=== PATIENT | male | born 1985 | race Caucasian/White ===

== ENCOUNTER 2016-07-11 13:58 | Inpatient (IN) | payer SELFPAY ==
[2016-07-11] MEDS ORDERED: SODIUM CHLORIDE 0.9% 500 ML IV STA (14:17)
[2016-07-11] MEDS ORDERED: ACTIVATED CHARCOAL-SORBITOL 50 GM/240 ML BOTTLE PO STA (14:18)
--- NOTE | 2016-07-11 14:20 | ED ---
General Adult HPI - General Stated complaint: OVERDOSE Time Seen by Provider: 07/11/16 14:00 Source: RN notes reviewed - History of Present Illness Initial comments: This is a 30-year-old male presents emergency department after having taken approximately 30 Lodine pills. Patient states he just couldn't take it anymore and that is all he would say. Patient does admit to taking 30 looking pills approximately an hour prior to arrival. Patient denies any symptoms currently. Patient denies headache patient denies numbness weakness. Patient denies chest pain palpitations difficult breathing shortness breath per patient denies abdominal pain patient denies nausea vomiting or diarrhea. Patient's father called and spoke with nursing stated that the patient just got out of long term and found out that his girlfriends and it is not his baby. Patient won't answer whether or not he is suicidal. - Related Data Home Medications Medication Instructions Recorded Confirmed No Known Home Medications [No 07/11/16 07/11/16 Known Home Medications] Allergies Allergy/AdvReac Type Severity Reaction Status Date / Time Penicillins Allergy Unknown Verified 07/11/16 15:08 Childhood Review of Systems ROS Statement: Those systems with pertinent positive or pertinent negative responses have been documented in the HPI. ROS Other: All systems not noted in ROS Statement are negative. General Exam - General Exam Comments Initial Comments: GENERAL: Patient is well-developed and well-nourished. Patient is nontoxic and well- hydrated and is in distress. ENT: Neck is soft and supple. No significant lymphadenopathy is noted. Oropharynx is clear. Moist mucous membranes. Neck has full range of motion without eliciting any pain. EYES: The sclera were anicteric and conjunctiva were pink and moist. Extraocular movements were intact and pupils were equal round and reactive to light. Eyelids were unremarkable. PULMONARY: Unlabored respirations. Good breath sounds bilaterally. No audible rales rhonchi or wheezing was noted. CARDIOVASCULAR: There is a regular rate and rhythm without any murmurs gallops or rubs. ABDOMEN: Soft and nontender with normal bowel sounds. No palpable organomegaly was noted. There is no palpable pulsatile mass. SKIN: Skin is clear with no lesions or rashes and otherwise unremarkable. NEUROLOGIC: Patient is alert and oriented x3. Cranial nerves II through XII are grossly intact. Motor and sensory are also intact. Normal speech, volume and content. Symmetrical smile. MUSCULOSKELETAL: Normal extremities with adequate strength and full range of motion. No lower extremity swelling or edema. No calf tenderness. LYMPHATICS: No significant lymphadenopathy is noted PSYCHIATRIC: Patient will not answer whether is or is not suicidal Course Vital Signs 07/11/16 14:00 Temperature 98.6 F Pulse Rate 106 H Respiratory 20 Rate Blood Pressure 133/90 O2 Sat by Pulse 96 Oximetry Medical Decision Making - Medical Decision Making Patient had a gastric lavage were pill fragments were removed. Patient remained asymptomatic throughout his ED course. EPS was contacted they spoke with the patient agreed the patient needed to be admitted. - Lab Data Result diagrams: 07/11/16 14:45 07/11/16 14:45 Lab Results 07/11/16 07/11/16 07/11/16 Range/Units 14:45 14:45 14:45 WBC 7.3 (3.8-10.6) k/uL RBC 5.74 (4.30-5.90) m/uL Hgb 18.1 H (13.0-17.5) gm/dL Hct 55.0 H (39.0-53.0) % MCV 95.8 (80.0-100.0) fL MCH 31.5 (25.0-35.0) pg MCHC 32.8 (31.0-37.0) g/dL RDW 14.3 (11.5-15.5) % Plt Count 249 (150-450) k/uL Neutrophils % 76 % Lymphocytes % 13 % Monocytes % 9 % Eosinophils % 1 % Basophils % 1 % Neutrophils # 5.5 (1.3-7.7) k/uL Lymphocytes # 1.0 (1.0-4.8) k/uL Monocytes # 0.6 (0-1.0) k/uL Eosinophils # 0.0 (0-0.7) k/uL Basophils # 0.0 (0-0.2) k/uL Sodium 146 H (137-145) mmol/L Potassium 3.8 (3.5-5.1) mmol/L Chloride 106 (98-107) mmol/L Carbon Dioxide 23 (22-30) mmol/L Anion Gap 17 mmol/L BUN 5 L (9-20) mg/dL Creatinine 0.72 (0.66-1.25) mg/dL Est GFR (MDRD) Af Amer >60 (>60 ml/min/1.73 sqM) Est GFR (MDRD) Non-Af >60 (>60 ml/min/1.73 sqM) Glucose 67 L (74-99) mg/dL Calcium 9.1 (8.4-10.2) mg/dL Total Bilirubin 1.0 (0.2-1.3) mg/dL AST 111 H (17-59) U/L ALT 138 H (21-72) U/L Alkaline Phosphatase 123 (38-126) U/L Total Protein 7.7 (6.3-8.2) g/dL Albumin 4.7 (3.5-5.0) g/dL Salicylates <1.0 mg/dL Urine Opiates Screen Not Detected (NotDetected) Ur Oxycodone Screen Not Detected (NotDetected) Urine Methadone Screen Not Detected (NotDetected) Ur Propoxyphene Screen Not Detected (NotDetected) Acetaminophen <10.0 ug/mL Ur Barbiturates Screen Not Detected (NotDetected) U Tricyclic Antidepress Detected H (NotDetected) Ur Phencyclidine Scrn Detected H (NotDetected) Ur Amphetamines Screen Not Detected (NotDetected) U Methamphetamines Scrn Not Detected (NotDetected) U Benzodiazepines Scrn Not Detected (NotDetected) Urine Cocaine Screen Not Detected (NotDetected) U Marijuana (THC) Screen Detected H (NotDetected) Serum Alcohol 77 mg/dL Disposition Clinical Impression: Depression, Overdose, Suicide attempt Disposition: [facility] Time of Disposition: 16:21
[2016-07-11 14:59] LABS: Basophils % (A) 1 %; CH 32.8; CHCM 34.4; Eosinophils % (A) 1 %; HDW 2.32; HGB 18.1 gm/dL (13.0-17.5); Luc % (Auto) 1; Lymphocytes % (A) 13 %; MCH 31.5 pg (25.0-35.0); MCHC 32.8 g/dL (31.0-37.0); MCV 95.8 fL (80.0-100.0); Mean Platelet Volume 7.2; Monocytes # (A) 0.6 k/uL (0-1.0); Monocytes % (A) 9 %; Neutrophils # (A) 5.5 k/uL (1.3-7.7); Neutrophils % (A) 76 %; RBC 5.74 m/uL (4.30-5.90); RDW 14.3 % (11.5-15.5); WBC 7.3 k/uL (3.8-10.6)
[2016-07-11 15:08] LABS: ALT 138 U/L (21-72); AST 111 U/L (17-59); Acetaminophen <10.0 ug/mL; Alkaline Phosphatase 123 U/L (38-126); Anion Gap 17 mmol/L; Blood Urea Nitrogen 5 mg/dL (9-20); Calcium 9.1 mg/dL (8.4-10.2); Carbon Dioxide 23 mmol/L (22-30); Chloride 106 mmol/L (98-107); Glucose 67 mg/dL (74-99); Non-African American GFR(MDRD) >60 (>60 ml/min/1.73 sqM); Potassium 3.8 mmol/L (3.5-5.1); Salicylate <1.0 mg/dL; Sodium 146 mmol/L (137-145); Total Protein 7.7 g/dL (6.3-8.2)
[2016-07-11 15:09] LABS: Alcohol 77 mg/dL
[2016-07-11] MEDS ORDERED: PANTOPRAZOLE 40 MG/10 ML VIAL IVP STA (15:25)
[2016-07-11] MEDS ORDERED: LORazepam 2 MG/ML SYRINGE IM PRN (17:06)
[2016-07-11] MEDS ORDERED: LORazepam 1 MG TAB PO PRN (17:06)
[2016-07-11] MEDS ORDERED: MAG HYDROX/AL HYDROX/SIMETH 30 ML CUP PO PRN (17:07)
[2016-07-11] MEDS ORDERED: MAGNESIUM HYDROXIDE 2,400 MG/10 ML CUP PO PRN (17:07)
[2016-07-11 17:46] VITALS: BMI 22.6
[2016-07-11] MEDS: NICOTINE 21MG/24HR PATCH TRANSDERM SCH (18:04)
[2016-07-12] MEDS: NICOTINE 21MG/24HR PATCH TRANSDERM SCH (09:29)
[2016-07-12] MEDS ORDERED: FOLIC ACID 1 MG TAB PO SCH (12:00)
[2016-07-12] MEDS ORDERED: THIAMINE 100 MG TAB PO SCH (12:00)
[2016-07-12] MEDS ORDERED: MULTIVITAMINS, THERA 1 EACH TAB PO SCH (12:00)
--- NOTE | 2016-07-12 13:57 | P.HP ---
Psychiatric H&P - . H&P Date: 07/12/16 History & Physical: IDENTIFYING DATA: Mr. Thomas is a 30-year-old single male who presented to the emergency department with complaints of depression and suicide attempt by overdose. HISTORY OF PRESENT ILLNESS: I reviewed the medical record and interviewed Mr. Sanderson. He stated that he took a "bunch of medication" at his grandmother's house prior to admission. He alleged she did not know the name of the medications. He did this impulsively. He denied that he had given forethought or planning to the suicide attempt. He gave a nonchalant response to questions about whether he intended to end his life. He is a history of alcohol use problems. On the day prior to admission he was "staying" with his "baby's mamma". He describes a tumultuous relationship with his ex-girlfriend. They have been for about year but he lives between her house, his mother's and his grandmother's. He stated that they were "getting along well" until early . They had an argument because she wanted their 2-year-old son to sleep at them. They woke up Day and continued to argue. He was drinking and intoxicated 's Laura and Day. She took him to his grandmother's house. He went to go to sleep on her couch. saw the medications and impulsively ingested. He denied that he had thought about or suicide prior to this event. He described feeling depressed "intermittently ... Sometimes an hour, sometimes a day ... Sometimes maybe longer." He has been feeling more depressed since he was released from [facility] one month ago. He denied classic symptoms of a major depression such as impairment in sleep, lack of interest, guilt, loss of energy , impairment in concentration, and suicidal thoughts. He denied sustained anxiety or having symptoms consistent with a panic attack. He denied obsessions or compulsions. He denied psychotic symptoms such as auditory or visual hallucinations, ideas reference, thought insertion, thought broadcasting or thought control. He denied current alcohol withdrawal symptoms including nausea, vomiting, tremor , sweating and tactile, auditory or visual hallucinations. PAST PSYCHIATRIC HISTORY: He stated he was admitted to this facility "about 10 years ago" under similar circumstances. A girlfriend told him that he attempted to hang himself. He has no memory of events that led to this hospitalization. He was intoxicated when it allegedly occurred. PAST MEDICAL HISTORY: He denied major medical illnesses. ALLERGIES: Penicillins. SUBSTANCE USE HISTORY: He has a history of an alcohol use disorder. He states that he drinks every day to intoxication. On the average, he drinks about one fifth of liquor per day. He has never attended a substance abuse treatment program. He was mandated to "substance abuse classes" following a DUI 2 years ago (he lost his license and has not driven since). He expressed no interest in substance abuse treatment and has no desire to reduce or stop his alcohol use. He occasionally smokes marijuana but denied use of other drugs to get high , help him sleep or changes mood. Tobacco use: He smokes one to 2 packs of cigarettes per day FAMILY PSYCHIATRIC/SUBSTANCE USE HISTORY: He stated "everybody" in his family has a history of mental health or substance use problems. He alleged that his mother, sister, grandmother, aunts and uncles all have mental health problems that include depression, bipolar illness and schizophrenia. His mother had a history of drug abuse in his father and his father's family have history of alcohol use problems. LEGAL HISTORY: He is been arrested "12 or 13 times." [facility] has been in [facility], in total, approximately 3 years. He was released from [facility] one month ago after serving 6 months for resisting arrest. He served another 6 month period in [facility] after being charged with fourth degree CSC (he is on the [facility]' s sex offender registry) in May 2007. Other charges include several arrests for drunk and disorderly, failure to register and "jostling". He has never been in [facility]. He is not on probation, parole or has pending charges. SOCIAL HISTORY: His born and raised in [facility] [place]. He graduated from high school. He was raised by his grandmother. His parents left him with his grandmother when he was 2 years old. He believes his father[place]. [place] He has 2 children by 2 different women. His daughter is 11 years old and his son is 2 years old. He lost alf rights to his daughter (this CSC has a due with his daughter). He denied having child support payments. 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 He is currently unemployed and has no income. He has no stable housing. He lives between his ex-girlfriend, his mother and his grandmother. He has no interests in obtaining stable housing. MENTAL STATUS EXAM: He presented as a casually groomed 1-year-old male who looked his stated age. He maintained eye contact and attended to the interview. He had no distinguishing features or prominent physical abnormalities. He had a blunted but bright facial expression. He was alert and oriented to person, place and time. He showed no abnormality of psychomotor activity. He had a normal gait and station. Speech was spontaneous with normal rate, rhythm and volume. His affect was stable and appropriate. He denied suicidal ideation or wishes. He denied homicidal ideation. He denied depressive cognitions such as hopelessness, helplessness and worthlessness. He denied obsessions, ruminations, phobias, ideas reference , paranoid ideation. He didn't express magical ideation or delusional thoughts. His thinking was abstract and associations were coherent and logical. He denied hallucinations and did not appear to be responding to internal stimuli. Global impression of intellect is average. He is aware of his alcohol use problems but has no interest in abstinence or treatment. STRENGTHS: Good physical health, supportive family, marketable employment schedule. WEAKNESSES: Alcohol use problems, unstable housing, lack of income. IMPRESSION: Is a 30-year-old single male who is history of alcoholl use and legal problems. He presented to unit with a purported suicide attempt by overdose of unknown medications. The overdose occurred impulsively following a series of arguments with his ex-girlfriend. He drinks to intoxication on a daily basis and expresses no interest in abstinence or treatment. His legal problems include a conviction for criminal sexual conduct fourth degree 2007 and he is on the offender registry. He is denying current legal problems or pending charges. He is denying current suicidal ideation, intent or plan. He is denying depressive symptoms, anxiety symptoms, alcohol withdrawal symptoms or symptoms of psychosis. He is requesting be discharged and declined a referral for substance abuse and/or mental health treatment. PRINCIPLE DIAGNOSIS: Adjustment disorder with disturbance of mood and behavior, alcohol use disorder, legal problems RECOMMENDATION: Obtained collateral information from family and monitor for signs and symptoms of alcohol withdrawal. He is declining a referral for outpatient mental health and/or substance abuse treatment. He also declined referral for residential substance abuse treatment. Discharge and to his grandmother's home with recommendation for outpatient substance abuse treatment. Allergies Allergy/AdvReac Type Severity Reaction Status Date / Time Penicillins Allergy Unknown Verified 07/11/16 17:34 Childhood Vital Signs Temp 97.8 F 07/12/16 07:20 Pulse 70 07/12/16 07:20 Resp 16 07/12/16 07:20 BP 101/58 07/12/16 07:20 Pulse Ox 98 07/11/16 16:48 Intake & Output 07/11/16 07/12/16 07/12/16 18:59 06:59 18:59 Weight 71.7 kg Laboratory Last Values WBC 7.3 k/uL (3.8-10.6) 07/11/16 14:45 RBC 5.74 m/uL (4.30-5.90) 07/11/16 14:45 Hgb 18.1 gm/dL (13.0-17.5) H 07/11/16 14:45 Hct 55.0 % (39.0-53.0) H 07/11/16 14:45 MCV 95.8 fL (80.0-100.0) 07/11/16 14:45 MCH 31.5 pg (25.0-35.0) 07/11/16 14:45 MCHC 32.8 g/dL (31.0-37.0) 07/11/16 14:45 RDW 14.3 % (11.5-15.5) 07/11/16 14:45 Plt Count 249 k/uL (150-450) 07/11/16 14:45 Neutrophils % 76 % 07/11/16 14:45 Lymphocytes % 13 % 07/11/16 14:45 Monocytes % 9 % 07/11/16 14:45 Eosinophils % 1 % 07/11/16 14:45 Basophils % 1 % 07/11/16 14:45 Neutrophils # 5.5 k/uL (1.3-7.7) 07/11/16 14:45 Lymphocytes # 1.0 k/uL (1.0-4.8) 07/11/16 14:45 Monocytes # 0.6 k/uL (0-1.0) 07/11/16 14:45 Eosinophils # 0.0 k/uL (0-0.7) 07/11/16 14:45 Basophils # 0.0 k/uL (0-0.2) 07/11/16 14:45 Sodium 146 mmol/L (137-145) H 07/11/16 14:45 Potassium 3.8 mmol/L (3.5-5.1) 07/11/16 14:45 Chloride 106 mmol/L (98-107) 07/11/16 14:45 Carbon Dioxide 23 mmol/L (22-30) 07/11/16 14:45 Anion Gap 17 mmol/L 07/11/16 14:45 BUN 5 mg/dL (9-20) L 07/11/16 14:45 Creatinine 0.72 mg/dL (0.66-1.25) 07/11/16 14:45 Est GFR (MDRD) Af Amer >60 (>60 ml/min/1.73 sqM) 07/11/16 14:45 Est GFR (MDRD) Non-Af >60 (>60 ml/min/1.73 sqM) 07/11/16 14:45 Glucose 67 mg/dL (74-99) L 07/11/16 14:45 Calcium 9.1 mg/dL (8.4-10.2) 07/11/16 14:45 Total Bilirubin 1.0 mg/dL (0.2-1.3) 07/11/16 14:45 AST 111 U/L (17-59) H 07/11/16 14:45 ALT 138 U/L (21-72) H 07/11/16 14:45 Alkaline Phosphatase 123 U/L (38-126) 07/11/16 14:45 Total Protein 7.7 g/dL (6.3-8.2) 07/11/16 14:45 Albumin 4.7 g/dL (3.5-5.0) 07/11/16 14:45 TSH 1.060 mIU/L (0.465-4.680) 07/11/16 14:45 Salicylates <1.0 mg/dL 07/11/16 14:45 Urine Opiates Screen Not Detected (NotDetected) 07/11/16 14:45 Ur Oxycodone Screen Not Detected (NotDetected) 07/11/16 14:45 Urine Methadone Screen Not Detected (NotDetected) 07/11/16 14:45 Ur Propoxyphene Screen Not Detected (NotDetected) 07/11/16 14:45 Acetaminophen <10.0 ug/mL 07/11/16 14:45 Ur Barbiturates Screen Not Detected (NotDetected) 07/11/16 14:45 U Tricyclic Antidepress Detected (NotDetected) H 07/11/16 14:45 Ur Phencyclidine Scrn Detected (NotDetected) H 07/11/16 14:45 Ur Amphetamines Screen Not Detected (NotDetected) 07/11/16 14:45 U Methamphetamines Scrn Not Detected (NotDetected) 07/11/16 14:45 U Benzodiazepines Scrn Not Detected (NotDetected) 07/11/16 14:45 Urine Cocaine Screen Not Detected (NotDetected) 07/11/16 14:45 U Marijuana (THC) Screen Detected (NotDetected) H 07/11/16 14:45 Serum Alcohol 77 mg/dL 07/11/16 14:45 07/12/16 08:55 07/12/16 13:48
[2016-07-13 06:54] VITALS: BP 115/64; PULSE 72; RESP 14; TEMP 97.7
--- NOTE | 2016-07-13 08:28 | HP ---
DATE OF ADMISSION: CHIEF COMPLAINT: Suicidal attempt and acute depression. HISTORY OF PRESENT ILLNESS: This is a 30-year-old male with past medical history significant for depression, presented to the hospital with suicidal attempt, he took several pills from several bottle that he was not able to identify and on further questioning, patient said that he does not believe that it is pain medication and he thinks it is mixed of all the medications that he has at home. Patient was evaluated in the emergency, admitted to psych floor for further evaluation. Patient currently denying chest pain, shortness breath, nausea, vomiting, abdominal pain, dizziness, lightheadedness, or blurry vision. REVIEW OF SYSTEMS: All 14 systems reviewed and negative except as above. HOME MEDICATIONS: None. PAST MEDICAL AND SURGICAL HISTORY: 1. Adenoidectomy. 2. Skin laceration on the scalp. 3. Steel plate on the face. SOCIAL HISTORY: Positive for 2 packs per day tobacco cigarettes and drinking heavily. States, that the last drink was New Year's Laura where he two-fifths of vodka. Patient smokes marijuana occasionally but said that he never abused street drugs. FAMILY HISTORY: Positive for lung cancer in his grandfather, parents are alive and healthy. PHYSICAL EXAMINATION: VITAL SIGNS: Reviewed and stable. HEENT: Atraumatic, normocephalic. PERRLA. NECK: Supple, no masses. No thyromegaly. LUNGS: Clear to auscultation bilaterally. HEART: Normal S1, S2. ABDOMEN: Soft, no tenderness. Positive bowel sounds in all 4 quadrants. Lower extremity no edema. Alert, and oriented x3. NEURO: No focal deficits. IMAGING AND LABS: CBC revealed hemoglobin slightly elevated at 18.1. Chem-7 showed sodium 146, glucose 67, TSH was 1.060. ASSESSMENT AND PLAN: 1. Acute depression with suicidal attempt per your management. 2. Slight revision in his hemoglobin, we will have the patient repeat his hemoglobin on outpatient basis and if it is still elevated, to be monitored by his primary care physician. 3. Mild hypernatremia, likely secondary to dehydration. Will continue encouraging oral intake. 4. Alcoholism. Will monitor for withdrawal signs. Patient currently seems to be stable and states that he never had delirium tremens or seizure in the past. 5. We will followup on the patient on an as-needed basis.
--- NOTE | 2016-07-13 08:34 | P.DS ---
Providers Date of admission: 07/11/16 17:03 Attending physician: Juarez Johnson MD Consults: 07/11/16 17:07 Consult Physician Routine Consulting Provider: Lakeisha Norton Consult Reason/Comments: H and P Do you want consulting provider notified?: Yes Primary care physician: Stated None - Discharge Diagnosis(es) (1) Alcohol use disorder, severe, dependence Current Visit: Yes Status: Chronic Priority: High (2) Alcohol intoxication Current Visit: Yes Status: Resolved Priority: Low (3) Partner relationship problems Current Visit: Yes Status: Chronic Priority: Medium (4) Suicide attempt Current Visit: Yes Status: Resolved Priority: High Hospital Course: Mr. Thomas is a 30-year-old single male who presented to the emergency department with complaints of depression and suicide attempt by overdose. He stated that he took a "bunch of medication" at his grandmother's house prior to admission. He alleged she did not know the name of the medications. He did this impulsively. He denied that he had given forethought or planning to the suicide attempt. He gave a nonchalant response to questions about whether he intended to end his life. He is a history of alcohol use problems. On the day prior to admission he was "staying" with his "baby's mamma". He describes a tumultuous relationship with his ex-girlfriend. They have been for about year but he lives between her house, his mother's and his grandmother's. He stated that they were "getting along well" until early . They had an argument because she wanted their 2-year-old son to sleep at them. They woke up Day and continued to argue. He was drinking and intoxicated s Laura and Day. She took him to his grandmother's house. He went to go to sleep on her couch. saw the medications and impulsively ingested. He denied that he had thought about or suicide prior to this event. He described feeling depressed "intermittently ... Sometimes an hour, sometimes a day ... Sometimes maybe longer." He has been feeling more depressed since he was released from prison one month ago. He denied classic symptoms of a major depression such as impairment in sleep, lack of interest, guilt, loss of energy , impairment in concentration, and suicidal thoughts. He denied sustained anxiety or having symptoms consistent with a panic attack. He denied obsessions or compulsions. He denied psychotic symptoms such as auditory or visual hallucinations, ideas reference, thought insertion, thought broadcasting or thought control. He denied current alcohol withdrawal symptoms including nausea, vomiting, tremor , sweating and tactile, auditory or visual hallucinations. He has a history of an alcohol use disorder. He states that he drinks every day to intoxication. On the average, he drinks about one fifth of liquor per day. He has never attended a substance abuse treatment program. He was mandated to "substance abuse classes" following a DUI 2 years ago (he lost his license and has not driven since). He expressed no interest in substance abuse treatment and has no desire to reduce or stop his alcohol use. He occasionally smokes marijuana but denied use of other drugs to get high, help him sleep or changes mood. He is been arrested "12 or 13 times." He has been in prison, in total, approximately 3 years. He was released from prison one month ago after serving 6 months for resisting arrest. He served another 6 month period in prison after being charged with fourth degree CSC (he is on the [facility]'s sex offender registry) in May 2007. Other charges include several arrests for drunk and disorderly, failure to register and "jostling". He has never been in [facility]. He is not on probation, parole or has pending charges. We admitted him to the psychiatric unit under the care of this play writer. We provided a biopsychosocial assessment. We placed him on suicide precautions with 15 minute checks due to history of the attempted overdose. We managed his potential alcohol withdrawal symptoms by monitoring the severity symptoms uses to CIWA protocol and lorazepam 1 mg by mouth every 6 hours when necessary for alcohol withdrawal symptoms. He did not demonstrate any alcohol withdrawal symptoms. He denied symptoms of depression or thoughts of or suicide. He did not demonstrate self-harm behaviors on the unit. We talked about his alcohol use and the benefits of abstinence. He declined a referral to a substance abuse treatment program rationalizing that he has "not ready for treatment." The day following admission he signed a "three-day notice" requesting to be discharged. On a daily discharge she denied feeling depressed or having symptoms of depression. He denied alcohol withdrawal symptoms such as nausea or vomiting, tremor, sweating or tactile, auditory or visual disturbances. He denied thoughts of suicide or wishes. She denied feelings of anxiety or symptoms of anxiety. He denied psychotic symptoms. Plan - Discharge Summary Discharge Medication List No Known Home Medications [No Known Home Medications] 07/11/16 [History] Follow up Appointment(s)/Referral(s): None,Stated [Primary Care Provider] - 1-2 days
[2016-07-13] MEDS: NICOTINE 21MG/24HR PATCH TRANSDERM SCH (09:08)
== END 2016-07-13 11:50 | disposition home or self-care (01) | DRG 881 ==
LOC: EC 13:58 → 3MHU 17:03
PROVIDERS: ADMIT Psychiatry & Neurology Psychiatry; ATTEND Psychiatry & Neurology Psychiatry
DX: F32.9 Major depressive disorder, single episode, unspecified (principal); E87.0 Hyperosmolality and hypernatremia; E86.0 Dehydration; F43.20 Adjustment disorder, unspecified; F10.229 Alcohol dependence with intoxication, unspecified; F12.90 Cannabis use, unspecified, uncomplicated; T50.902A Poisoning by unspecified drugs, medicaments and biological substances, intentional self-harm, initial encounter; F17.210 Nicotine dependence, cigarettes, uncomplicated; Z65.3 Problems related to other legal circumstances; Z88.0 Allergy status to penicillin
CPT/HCPCS: 36415; 80053; 80306; 80320; 83520; 84443; 85025; 99285

== ENCOUNTER 2018-07-12 03:15 | Emergency (ER) | payer MEDICAID, OTHER ==
[2018-07-12 03:31] VITALS: BP 130/89; PULSE 88; RESP 16; TEMP 98.7
[2018-07-12] MEDS ORDERED: MECLIZINE 12.5 MG TAB PO STA (04:07)
--- NOTE | 2018-07-12 04:10 | ED ---
ENT HPI - General Chief complaint: ENT Stated complaint: Ear Pain Time Seen by Provider: 07/12/18 03:46 Source: patient, RN notes reviewed, old records reviewed Mode of arrival: ambulatory Limitations: no limitations - History of Present Illness Initial comments: Patient is a 32 year old male presents today with CC of R ear pain for a few hours, and one week of sinusitis. Patient reports that he has not taken any OTC medications. Denies fevers. Patient reports a slight cough. Patient reports diminished hearing from R ear. Denies chest pain, shortness of breath, nausea, vomiting, dysuria, paresthesias, vision changes, rash, abdominal pain, back pain - Related Data Previous Rx's Medication Instructions Recorded Azithromycin [Zithromax Z-pack] 250 mg PO DIRECTED #6 tab 07/12/18 Loratadine-Pseudoeph 5-120 mg 1 each PO Q12HR #20 tab 07/12/18 [Claritin-D 12 HR] Allergies Allergy/AdvReac Type Severity Reaction Status Date / Time Penicillins Allergy Unknown Verified 07/12/18 03:31 Childhood Review of Systems ROS Statement: Those systems with pertinent positive or pertinent negative responses have been documented in the HPI. ROS Other: All systems not noted in ROS Statement are negative. Past Medical History Past Medical History: No Reported History History of Any Multi-Drug Resistant Organisms: None Reported Past Surgical History: Ear Surgery Additional Past Surgical History / Comment(s): jaw surgery, tube surgery, dog attack and repair on top of head. Past Anesthesia/Blood Transfusion Reactions: No Reported Reaction Past Psychological History: Depression Smoking Status: Current every day smoker Past Alcohol Use History: Daily, Heavy Past Drug Use History: None Reported - Past Family History Mother History Unknown: Yes Father History Unknown: Yes General Exam - General Exam Comments Initial Comments: 32 year old male, no distress. Limitations: no limitations General appearance: alert, in no apparent distress Head exam: Present: atraumatic, normocephalic, normal inspection Eye exam: Present: normal appearance, PERRL, EOMI. Absent: scleral icterus, conjunctival injection, periorbital swelling ENT exam: Present: normal exam, mucous membranes moist, other (sinus tenderness , R otits media noted. ) Neck exam: Present: normal inspection. Absent: tenderness, meningismus, lymphadenopathy Respiratory exam: Present: normal lung sounds bilaterally. Absent: respiratory distress, wheezes, rales, rhonchi, stridor Cardiovascular Exam: Present: regular rate, normal rhythm, normal heart sounds. Absent: systolic murmur, diastolic murmur, rubs, gallop, clicks Extremities exam: Present: normal inspection, full ROM, normal capillary refill. Absent: tenderness, pedal edema, joint swelling, calf tenderness Back exam: Present: normal inspection Neurological exam: Present: alert, oriented X3, CN II-XII intact Psychiatric exam: Present: normal affect, normal mood Skin exam: Present: warm, dry, intact, normal color. Absent: rash Course Vital Signs 07/12/18 03:29 Temperature 98.7 F Pulse Rate 88 Respiratory 16 Rate Blood Pressure 130/89 Medical Decision Making - Medical Decision Making 32 year old male with a few hours of right ear pain, and one week of sinus congestion. Patient has evidene of R TM effusion. Will treat the patient with claritin D and azithromycin for sinusitis. Discussed close follow up with PCP and return parameters discussed. Disposition Clinical Impression: Sinusitis Disposition: HOME SELF-CARE Condition: Good Instructions: Sinusitis (ED) Additional Instructions: Patient has follow up with primary care physician. Return to the emergency department if any alarming signs or symptoms occur. Prescriptions: Azithromycin [Zithromax Z-pack] 250 mg PO DIRECTED #6 tab Loratadine-Pseudoeph 5-120 mg [Claritin-D 12 HR] 1 each PO Q12HR #20 tab Is patient prescribed a controlled substance at d/c from ED?: No Referrals: None,Stated [Primary Care Provider] - 1-2 days Henrietta Vazquez MD [STAFF PHYSICIAN] - 1-2 days Time of Disposition: 04:09
== END 2018-07-12 04:26 | disposition home or self-care (01) ==
LOC: EC 03:15
DX: J32.9 Chronic sinusitis, unspecified (principal); F17.200 Nicotine dependence, unspecified, uncomplicated; Z88.0 Allergy status to penicillin
CPT/HCPCS: 99283

== ENCOUNTER 2018-07-15 03:31 | Emergency (ER) | payer OTHER ==
[2018-07-15 03:40] VITALS: BP 119/76; PULSE 124; RESP 20; TEMP 98.3
[2018-07-15] MEDS ORDERED: ACETAMINOPHEN TAB 500 MG TAB PO STA (03:52)
[2018-07-15] MEDS ORDERED: PSEUDOEPHEDRINE 30 MG TAB PO STA (03:52)
[2018-07-15] MEDS ORDERED: IBUPROFEN 600 MG TAB PO STA (03:52)
--- NOTE | 2018-07-15 03:53 | ED ---
ENT HPI - General Source: patient Mode of arrival: ambulatory Limitations: no limitations <Karina Vinson - Last Filed: 07/15/18 05:16> <Julia Zimmerman - Last Filed: 07/18/18 08:58> - General Chief complaint: ENT Stated complaint: Earache Time Seen by Provider: 07/15/18 03:45 - History of Present Illness Initial comments: 32-year-old male patient presents to the emergency department today for evaluation of right ear pain. Patient was seen and evaluated here 3 days ago for the same. Patient was started on azithromycin and Claritin-D. Patient states he has been taking the medication but he is not feeling any better so he wanted to have a recheck. He denies any fevers or chills. Denies any drainage from the ear. States he does have nasal congestion and drainage with this and slight cough. Denies any chest pain, shortness of breath, or sputum production. Patient denies any recent rash, abdominal pain, nausea, vomiting, diarrhea, constipation, back pain, numbness, tingling, dizziness, weakness, hematuria, dysuria, urinary urgency, urinary frequency, headache, visual changes , or any other complaints. (Karina Vinson) - Related Data Previous Rx's Medication Instructions Recorded Fluticasone Nasal [place] [Flonase 2 spr EA NOSTRIL DAILY 3 Days #1 07/15/18 Nasal [place]] bottle Allergies Allergy/AdvReac Type Severity Reaction Status Date / Time Penicillins Allergy Unknown Verified 07/15/18 21:10 Childhood Review of Systems ROS Other: All systems not noted in ROS Statement are negative. <Karina Vinson - Last Filed: 07/15/18 05:16> ROS Other: All systems not noted in ROS Statement are negative. <Julia Zimmerman - Last Filed: 07/18/18 08:58> ROS Statement: Those systems with pertinent positive or pertinent negative responses have been documented in the HPI. Past Medical History Past Medical History: No Reported History History of Any Multi-Drug Resistant Organisms: None Reported Past Surgical History: Ear Surgery Additional Past Surgical History / Comment(s): jaw surgery, tube surgery, dog attack and repair on top of head. Past Anesthesia/Blood Transfusion Reactions: No Reported Reaction Past Psychological History: Depression Smoking Status: Current every day smoker Past Alcohol Use History: Daily, Heavy Past Drug Use History: None Reported - Past Family History Mother History Unknown: Yes Father History Unknown: Yes <Karina Vinson - Last Filed: 07/15/18 05:16> General Exam Limitations: no limitations General appearance: alert, in no apparent distress, other (Social well-developed , well-nourished adult male patient in no acute distress. Vital signs upon presentation are temperature 98.3F, pulse 124, respirations 20, blood pressure 119/76, pulse ox 96% on room air.) Eye exam: Present: normal appearance, PERRL, EOMI. Absent: scleral icterus, conjunctival injection, periorbital swelling ENT exam: Present: normal exam, normal oropharynx, mucous membranes moist. Absent: TM's normal bilaterally (Right tympanic membrane is bulging and erythematous. Evidence of effusion.) Respiratory exam: Present: normal lung sounds bilaterally. Absent: respiratory distress, wheezes, rales, rhonchi, stridor Cardiovascular Exam: Present: regular rate, normal rhythm, normal heart sounds. Absent: systolic murmur, diastolic murmur, rubs, gallop, clicks Neurological exam: Present: alert, oriented X3, CN II-XII intact Psychiatric exam: Present: normal affect, normal mood Skin exam: Present: warm, dry, intact, normal color. Absent: rash <Karina Vinson M - Last Filed: 07/15/18 05:16> Vital Signs 07/15/18 03:37 Temperature 98.3 F Pulse Rate 124 H Respiratory 20 Rate Blood Pressure 119/76 O2 Sat by Pulse 96 Oximetry Medical Decision Making <Karina Vinson M - Last Filed: 07/15/18 05:16> <Julia Zimmerman - Last Filed: 07/18/18 08:58> - Medical Decision Making 32-year-old male patient presented to the emergency department today for recheck of right ear pain. Physical examination did reveal a bulging, erythematous right tympanic membrane. Patient has taking 2 doses of azithromycin and has been taking Claritin-D. He states he is not feeling any better. We did discuss use of antibiotics and that he may need to complete treatment prior to improvement of symptoms. He is instructed to complete the medications and to follow-up with his primary care physician. He is instructed to follow-up with an ENT specialist for recheck as soon as possible. Return parameters were discussed in detail. He verbalizes understanding and agrees this plan. (Karina Vinson) I personally saw and examined the patient. I reviewed and agree with the mid- level provider findings including all diagnostic interpretations and treatment plans as written unless otherwise stated. (Julia Zimmerman) Disposition Is patient prescribed a controlled substance at d/c from ED?: No Time of Disposition: 03:53 <Karina Vinson - Last Filed: 07/15/18 05:16> <Julia Zimmerman - Last Filed: 07/18/18 08:58> Clinical Impression: Right otitis media Disposition: HOME SELF-CARE Condition: Good Instructions: Ear Infection (ED), Earache (ED) Additional Instructions: Complete medications as prescribed. Take Tylenol and Motrin for pain control. Apply warm compresses to the right ear. Follow-up through primary care physician as well as ENT specialist as soon as possible. Return immediately for any new, worsening, or concerning symptoms. Referrals: None,Stated [Primary Care Provider] - 1-2 days
== END 2018-07-15 04:05 | disposition home or self-care (01) ==
LOC: EC 03:31
DX: H66.91 Otitis media, unspecified, right ear (principal); R09.81 Nasal congestion; R05 Cough; J34.89 Other specified disorders of nose and nasal sinuses; F17.200 Nicotine dependence, unspecified, uncomplicated; Z88.0 Allergy status to penicillin; Z98.890 Other specified postprocedural states
CPT/HCPCS: 99282; 99283

== ENCOUNTER 2018-07-15 21:06 | Emergency (ER) | payer OTHER ==
[2018-07-15 21:10] VITALS: BP 108/69; PULSE 113; RESP 20; TEMP 97.9
--- NOTE | 2018-07-15 22:06 | ED ---
General Adult HPI - General Source: patient, family, RN notes reviewed Mode of arrival: ambulatory Limitations: no limitations <Yuri Sol P - Last Filed: 07/15/18 21:59> <Julia Zimmerman P - Last Filed: 07/18/18 09:04> - General Chief complaint: ENT Stated complaint: Ear pain Time Seen by Provider: 07/15/18 21:16 - History of Present Illness Initial comments: 32-year-old male presents to the emergency department for a chief complaint of left ear pain. Patient states his right ear has been bothering him for the past few days. Patient states that today his left ear started bothering him. He is currently on azithromycin and has had about 3 days' worth. Patient also started taking Claritin. Patient admits to congestion and cough. He states he is a history of tympanostomy bilaterally and adenoidectomy. He denies any fevers or chills. He denies any neck pain or stiffness. No headaches. Patient has no other complaints at this time including shortness of breath, chest pain, abdominal pain, nausea or vomiting, headache, or visual changes. (Yuri Sol) - Related Data Previous Rx's Medication Instructions Recorded Fluticasone Nasal [place] [Flonase 2 spr EA NOSTRIL DAILY 3 Days #1 07/15/18 Nasal [place]] bottle Allergies Allergy/AdvReac Type Severity Reaction Status Date / Time Penicillins Allergy Unknown Verified 07/15/18 21:10 Childhood Review of Systems ROS Other: All systems not noted in ROS Statement are negative. <Yuri Sol P - Last Filed: 07/15/18 21:59> ROS Other: All systems not noted in ROS Statement are negative. <Julia Zimmerman P - Last Filed: 07/18/18 09:04> ROS Statement: Those systems with pertinent positive or pertinent negative responses have been documented in the HPI. Past Medical History Past Medical History: No Reported History History of Any Multi-Drug Resistant Organisms: None Reported Past Surgical History: Ear Surgery Additional Past Surgical History / Comment(s): jaw surgery, tube surgery, dog attack and repair on top of head. Past Anesthesia/Blood Transfusion Reactions: No Reported Reaction Past Psychological History: Depression Smoking Status: Current every day smoker Past Alcohol Use History: Daily, Heavy Past Drug Use History: None Reported - Past Family History Mother History Unknown: Yes Father History Unknown: Yes <Yuri Sol P - Last Filed: 07/15/18 21:59> General Exam Limitations: no limitations General appearance: alert, in no apparent distress Head exam: Present: atraumatic, normocephalic, normal inspection Eye exam: Present: normal appearance, PERRL, EOMI. Absent: scleral icterus, conjunctival injection, periorbital swelling ENT exam: Present: normal exam, normal oropharynx, mucous membranes moist, normal external ear exam. Absent: TM's normal bilaterally (Cerumen impaction removed. Left tympanic membrane slightly erythematous, no difficult bulging noted. No perforations. No pain with palpation of the tragus or pinna, no edema of the ear canal, no evidence of otitis externa.) Neck exam: Present: normal inspection, full ROM. Absent: tenderness, meningismus, lymphadenopathy Respiratory exam: Present: normal lung sounds bilaterally. Absent: respiratory distress, wheezes, rales, rhonchi, stridor Cardiovascular Exam: Present: regular rate, normal rhythm, normal heart sounds. Absent: systolic murmur, diastolic murmur, rubs, gallop, clicks Neurological exam: Present: alert, oriented X3, CN II-XII intact Psychiatric exam: Present: normal affect, normal mood <Yuri Sol P - Last Filed: 07/15/18 21:59> Vital Signs 07/15/18 21:07 Temperature 97.9 F Pulse Rate 113 H Respiratory 20 Rate Blood Pressure 108/69 O2 Sat by Pulse 96 Oximetry Medical Decision Making <Yuri Sol P - Last Filed: 07/15/18 21:59> <Julia Zimmerman P - Last Filed: 07/18/18 09:04> - Medical Decision Making 32-year-old male presents for left ear pain. Patient states his right ear has been hurting for the past few days. Currently on azithromycin and Claritin as he is penicillin ALLERGIC. On exam patient does have some erythema noted of the left tympanic membrane without significant bulge. A cerumen was removed, no perforations noted. It is possible that cerumen impaction was causing patient's pain. It is also possible that patient has eustachian tube dysfunction or otitis media. He is already on azithromycin and will continue this. I did recommend patient take Flonase which could help with eustachian tube dysfunction. However patient left without discharge paperwork, discharge vitals, or prescription. Patient initially tachycardic, was unable to repeat heart rate due to patient leaving prior to receiving discharge instructions. I did discuss following up with ENT and primary care while he was here. (Yuri Sol) I was available for consultation in the emergency department. The history and physical exam were done by the midlevel provider. I was consulted for this patient's care. I reviewed the case with the midlevel provider and based on their presentation of the patient, I agree with the assessment, medical decision making and plan of care as documented. (Julia Zimmerman) Disposition Is patient prescribed a controlled substance at d/c from ED?: No Time of Disposition: 22:05 <Yuri Sol - Last Filed: 07/15/18 21:59> <Julia Zimmerman - Last Filed: 07/18/18 09:04> Clinical Impression: Ear pain, left Disposition: HOME SELF-CARE Condition: Good Instructions: Earache (ED) Additional Instructions: Please use Flonase as directed and continue taking her medications. Please follow-up with ear nose throat physician as well as primary care physician. Please return to the emergency department if you have any worsening symptoms. Prescriptions: Fluticasone Nasal [place] [Flonase Nasal [place]] 2 spr EA NOSTRIL DAILY 3 Days #1 bottle Referrals: Henrietta Vazquez MD [STAFF PHYSICIAN] - 1-2 days Barrera Darby MD [STAFF PHYSICIAN] - 1-2 days
== END 2018-07-15 22:29 | disposition home or self-care (01) ==
LOC: EC 21:06
DX: H92.02 Otalgia, left ear (principal); H61.23 Impacted cerumen, bilateral; R00.0 Tachycardia, unspecified; F17.200 Nicotine dependence, unspecified, uncomplicated; Z88.0 Allergy status to penicillin; Z96.22 Myringotomy tube(s) status
CPT/HCPCS: 99282

== ENCOUNTER 2019-05-04 02:24 | Emergency (ER) | payer OTHER ==
[2019-05-04 02:35] VITALS: TEMP 98
[2019-05-04] MEDS ORDERED: LIDOCAINE 1% INJ 10MG/ML (20 ML MDV) SQ STA (02:46)
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
[2019-05-04 03:21] VITALS: RESP 18
[2019-05-04] MEDS ORDERED: SODIUM CHLORIDE 0.9% 500 ML 500 ML IV STA (03:26)
[2019-05-04] MEDS: AZITHROMYCIN 500 MG TAB PO STA ×2 (03:29→03:32)
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
[2019-05-04 03:33] VITALS: BP 119/93; PULSE 107
== END 2019-05-04 03:40 | disposition other institution (70) ==
LOC: EC 02:24
DX: S06.6X9A Traumatic subarachnoid hemorrhage with loss of consciousness of unspecified duration, initial encounter (principal); H72.92 Unspecified perforation of tympanic membrane, left ear; S01.81XA Laceration without foreign body of other part of head, initial encounter; T74.11XA Adult physical abuse, confirmed, initial encounter; F10.129 Alcohol abuse with intoxication, unspecified; F17.200 Nicotine dependence, unspecified, uncomplicated; Z53.20 Procedure and treatment not carried out because of patient's decision for unspecified reasons; Z88.0 Allergy status to penicillin; Y08.09XA Assault by strike by other specified type of sport equipment, initial encounter; Y93.89 Activity, other specified; Y92.89 Other specified places as the place of occurrence of the external cause; Y07.9 Unspecified perpetrator of maltreatment and neglect
CPT/HCPCS: 70450; 72125; 99285

== ENCOUNTER 2019-06-01 19:36 | Emergency (ER) | payer OTHER ==
[2019-06-01 19:40] VITALS: BP 140/87; PULSE 96; RESP 16; TEMP 97.5
--- NOTE | 2019-06-01 19:56 | ED ---
General Adult HPI - General Chief complaint: Fall Stated complaint: Dizziness, head trauma 3 weeks ago Time Seen by Provider: 06/01/19 19:42 Source: patient Mode of arrival: ambulatory Limitations: no limitations - History of Present Illness Initial comments: Dictation was produced using [employer] dictation software. please excuse any gra mmatical, word or spelling errors. Chief Complaint: 33-year-old male presents with persistent dizziness and headache. History of Present Illness: 33-year-old male presents with dizziness and headache. Patient was seen here in emergency department approximately one month ago where he was diagnosed with traumatic subarachnoid bleeding at that time he was transferred to [facility] for further intervention. Patient states when he got there he was observed in emergency department and was discharge in stable condition. Patient states since the fall he has been having intermittent episodes of dizziness and headache. Patient is a chronic alcoholic. He drinks alcohol daily. Patient has not followed up with [facility] doctors because he does not have transportation down there given distance. Denies any neurovascular deficits. Patient describes his dizziness is worse in the morning. States the headache is holocranial is very mild. The ROS documented in this emergency department record has been reviewed and confirmed by me. Those systems with pertinent positive or negative responses have been documented in the HPI. All other systems are other negative and/or n oncontributory. PHYSICAL EXAM: General Impression: Alert and oriented x3, not in acute distress HEENT: Normocephalic atraumatic, extra-ocular movements intact, pupils equal and reactive to light bilaterally, mucous membranes moist, cerumen obstructing visualization of left hepatic membrane, right hepatic members unremarkable, defect in the left external ear Cardiovascular: Heart regular rate and rhythm, S1&S2 audible, no murmurs, rubs or gallops Chest: Lungs clear to auscultation bilaterally, no rhonchi, no wheeze, no rales Abdomen: Bowel sounds present, abdomen soft, non-tender, non-distended, no organomegaly Musculoskeletal: Pulses present and equal in all extremities, no peripheral justin a Motor: no focal deficits noted Neurological: CN II-XII grossly intact, no focal motor or sensory deficits noted Skin: Intact with no visualized rashes Psych: Normal affect and mood ED course: 33-year-old male presents with clinical presentation consistent with post-concussive symptoms. Signs upon arrival are within acceptable limits. Physical examination is benign. Laboratory evaluation obtained. Labs are unremarkable. Computed tomography scan of the brain was obtained showing no acute processes. Patient clear for discharge. Told that his symptoms are likely postconcussive. He is advised follow-up with his primary care physician. Patient understandable agreeable to disposition. - Related Data Home Medications Medication Instructions Recorded Confirmed No Known Home Medications 06/01/19 06/01/19 Allergies Allergy/AdvReac Type Severity Reaction Status Date / Time Penicillins Allergy Swelling Verified 06/01/19 21:03 Review of Systems ROS Statement: Those systems with pertinent positive or pertinent negative responses have been documented in the HPI. ROS Other: All systems not noted in ROS Statement are negative. Past Medical History Past Medical History: No Reported History History of Any Multi-Drug Resistant Organisms: None Reported Past Surgical History: Ear Surgery Additional Past Surgical History / Comment(s): jaw surgery, tube surgery, dog attack and repair on top of head. Past Anesthesia/Blood Transfusion Reactions: No Reported Reaction Past Psychological History: Depression Smoking Status: Current every day smoker Past Alcohol Use History: Daily, Heavy Past Drug Use History: None Reported - Past Family History Mother History Unknown: Yes Father History Unknown: Yes General Exam Limitations: no limitations Course Vital Signs 06/01/19 19:38 Temperature 97.5 F L Pulse Rate 96 Respiratory 16 Rate Blood Pressure 140/87 O2 Sat by Pulse 94 L Oximetry Medical Decision Making - Lab Data Result diagrams: 06/01/19 19:57 Lab Results 06/01/19 06/01/19 Range/Units 19:57 19:57 PT 10.2 (9.0-12.0) sec INR 0.9 (<1.2) APTT 24.9 (22.0-30.0) sec Sodium 143 (137-145) mmol/L Potassium 3.7 (3.5-5.1) mmol/L Chloride 109 H (98-107) mmol/L Carbon Dioxide 21 L (22-30) mmol/L Anion Gap 13 mmol/L BUN 5 L (9-20) mg/dL Creatinine 0.69 (0.66-1.25) mg/dL Est GFR (CKD-EPI)AfAm >90 (>60 ml/min/1.73 sqM) Est GFR (CKD-EPI)NonAf >90 (>60 ml/min/1.73 sqM) Glucose 131 H (74-99) mg/dL Calcium 9.5 (8.4-10.2) mg/dL Disposition Clinical Impression: Post concussive syndrome Disposition: HOME SELF-CARE Condition: Good Instructions (If sedation given, give patient instructions): Concussion (ED) Is patient prescribed a controlled substance at d/c from ED?: No Referrals: None,Stated [Primary Care Provider] - 1-2 days Time of Disposition: 21:12
[2019-06-01 20:16] LABS: Chloride 109 mmol/L (98-107); Glucose 131 mg/dL (74-99); Potassium 3.7 mmol/L (3.5-5.1); Sodium 143 mmol/L (137-145)
[2019-06-01 20:17] LABS: African American GFR (CKD) >90 (>60 ml/min/1.73 sqM); Anion Gap 13 mmol/L; Blood Urea Nitrogen 5 mg/dL (9-20); Calcium 9.5 mg/dL (8.4-10.2); Carbon Dioxide 21 mmol/L (22-30); Non-African American GFR(CKD) >90 (>60 ml/min/1.73 sqM)
[2019-06-01 20:24] LABS: INR 0.9 (<1.2); Partial Thromboplastin Time 24.9 sec (22.0-30.0); Prothrombin Time 10.2 sec (9.0-12.0)
[2019-06-01] MEDS ORDERED: SODIUM CHLORIDE 0.9% 500 ML 500 ML IV STA (20:32)
[2019-06-01] MEDS ORDERED: ONDANSETRON 4 MG/2 ML VIAL IVP STA (20:32)
--- NOTE | 2019-06-01 21:05 | CT ---
EXAMINATION: CT brain wo con DATE AND TIME: 06/01/2019 8:29 PM CLINICAL INDICATION: [facility]; fall TECHNIQUE: Standard departmental protocol.; 1114.4; COMPARISON: 05/04/2019. FINDINGS: The calvarium is intact. There is no intracranial hemorrhage. There is no intracranial mass or mass effect. No definite new intra-axial or extra-axial attenuation defect. The paranasal sinuses, middle ear cavities, and mastoid sinus air cells are clear. The orbits are unremarkable. IMPRESSION: NO ACUTE PROCESS.
[2019-06-01 21:25] LABS: Basophils # (A) 0.1 k/uL (0-0.2); Basophils % (A) 1 %; Eosinophils # (A) 0.1 k/uL (0-0.7); Eosinophils % (A) 1 %; HCT 48.2 % (39.0-53.0); HGB 16.7 gm/dL (13.0-17.5); Lymphocytes # (A) 1.6 k/uL (1.0-4.8); Lymphocytes % (A) 29 %; MCH 34.7 pg (25.0-35.0); MCHC 34.7 g/dL (31.0-37.0); Mean Platelet Volume 6.2; Monocytes # (A) 0.4 k/uL (0-1.0); Monocytes % (A) 8 %; Neutrophils # (A) 3.1 k/uL (1.3-7.7); Neutrophils % (A) 58 %; Platelet Count 247 k/uL (150-450); RBC 4.82 m/uL (4.30-5.90); RDW 13.2 % (11.5-15.5); WBC 5.4 k/uL (3.8-10.6)
== END 2019-06-01 21:29 | disposition home or self-care (01) ==
LOC: EC 19:36
DX: F07.81 Postconcussional syndrome (principal); H61.22 Impacted cerumen, left ear; F10.20 Alcohol dependence, uncomplicated; F17.200 Nicotine dependence, unspecified, uncomplicated; Z88.0 Allergy status to penicillin; Z98.890 Other specified postprocedural states; Z91.81 History of falling
CPT/HCPCS: 36415; 80048; 85025; 85610; 85730; 70450; 99284; 96374; J2405

== ENCOUNTER 2019-12-11 06:00 | Observation (INO) | payer OTHER ==
[2019-12-11] MEDS ORDERED: SODIUM CHLORIDE 0.9% 1,000 ML IV STA ×2 (06:16)
[2019-12-11] MEDS ORDERED: SODIUM CHLORIDE 0.9% 500 ML 500 ML IV STA (06:16)
[2019-12-11 06:50] LABS: Basophils % (A) 1 %; Eosinophils # (A) 0.1 k/uL (0-0.7); Eosinophils % (A) 1 %; Lymphocytes % (A) 31 %; MCH 34.5 pg (25.0-35.0); MCHC 34.8 g/dL (31.0-37.0); MCV 99.1 fL (80.0-100.0); Monocytes # (A) 0.4 k/uL (0-1.0); Monocytes % (A) 7 %; Neutrophils # (A) 3.9 k/uL (1.3-7.7); Neutrophils % (A) 59 %; Platelet Count 284 k/uL (150-450); RBC 4.64 m/uL (4.30-5.90); RDW 14.4 % (11.5-15.5); WBC 6.5 k/uL (3.8-10.6)
[2019-12-11 07:00] LABS: ALT 119 U/L (4-49); AST 195 U/L (17-59); African American GFR (CKD) >90 (>60 ml/min/1.73 sqM); Albumin 4.6 g/dL (3.5-5.0); Alkaline Phosphatase 105 U/L (38-126); Amylase 96 U/L (30-110); Anion Gap 11 mmol/L; Blood Urea Nitrogen 6 mg/dL (9-20); Calcium 9.2 mg/dL (8.4-10.2); Carbon Dioxide 27 mmol/L (22-30); Chloride 104 mmol/L (98-107); Glucose 106 mg/dL (74-99); Non-African American GFR(CKD) >90 (>60 ml/min/1.73 sqM); Potassium 3.8 mmol/L (3.5-5.1); Sodium 142 mmol/L (137-145); Total Bilirubin 1.3 mg/dL (0.2-1.3); Total Protein 8.1 g/dL (6.3-8.2)
[2019-12-11 07:26] LABS: Alcohol 259 mg/dL
[2019-12-11 07:38] LABS: Appearance,Urine Clear (Clear); Bilirubin,Urine Negative (Negative); Blood,Urine Negative (Negative); Color,Urine Yellow; Glucose,Urine (UA) Negative (Negative); Ketones,Urine Negative (Negative); Leukocyte Esterase,Urine Negative (Negative); Nitrite,Urine Negative (Negative); Protein,Urine Trace (Negative); Specific Gravity,Urine 1.014 (1.001-1.035); Urobilinogen,Urine <2.0 mg/dL (<2.0)
--- NOTE | 2019-12-11 08:25 | ED ---
Abdominal Pain HPI - General Chief Complaint: Abdominal Pain Stated Complaint: abd pain Time Seen by Provider: 12/11/19 06:15 Source: patient Mode of arrival: ambulatory Limitations: no limitations - History of Present Illness Initial Comments: 34-year-old male with history of ETOH abuse presenting today for chief complaint of right mid abdominal pain, vomiting x 2 weeks. Patient states that he has had been vomiting in the morning and has had right abdominal pain for 2 weeks. Patient states the pain has been increasing. Patient states he doesn't use alcohol he states he does not feel like he is withdrawing. Patient states he last drink yesterday evening. Patient denies any hematemesis melena or hematochezia denies any testicular pain or swelling denies dysuria urgency frequency back or flank pain. Patient denies any chest pain shortness of breath he states the pain is sharp in nature and colicky coming and going. Remainign ROS (-). Pain present on arrival. - Related Data Home Medications Medication Instructions Recorded Confirmed No Known Home Medications 06/01/19 12/11/19 Allergies Allergy/AdvReac Type Severity Reaction Status Date / Time Penicillins Allergy Swelling Verified 12/11/19 09:18 Review of Systems ROS Statement: Those systems with pertinent positive or pertinent negative responses have been documented in the HPI. ROS Other: All systems not noted in ROS Statement are negative. Past Medical History Past Medical History: No Reported History History of Any Multi-Drug Resistant Organisms: None Reported Past Surgical History: Ear Surgery Additional Past Surgical History / Comment(s): jaw surgery, tube surgery, dog attack and repair on top of head. Past Anesthesia/Blood Transfusion Reactions: No Reported Reaction Past Psychological History: Depression Smoking Status: Current every day smoker Past Alcohol Use History: Daily, Heavy Past Drug Use History: Marijuana - Past Family History Mother History Unknown: Yes Father History Unknown: Yes General Exam - General Exam Comments Initial Comments: General: The patient is awake and alert, in no distress Eye: +3 mm pupils are equal, round and reactive to light, extra-ocular movements are intact. No nystagmus. There is normal conjunctiva bilaterally. No signs of icterus. Ears, nose, mouth and throat: There are moist mucous membranes and no oral lesions. Neck: The neck is supple, there is no tenderness or JVD. Cardiovascular: There is a regular rate and rhythm. No murmur, rub or gallop is appreciated. Respiratory: Lungs are clear to auscultation, respirations are non-labored, breath sounds are equal. No wheezes, stridor, rales, or rhonchi. Gastrointestinal: Soft, non-distended, Right mid to lower abdominal tenderness without masses or organomegaly noted. There is no rebound or guarding present. Musculoskeletal: Normal ROM, no tenderness. Strength 5/5. Sensation intact. Radial pulses equal bilaterally 2+. Neurological: A&O x 3. CN II-XII intact grossly, There are no obvious motor or sensory deficits. Coordination appears grossly intact. Speech is normal. Skin: Skin is warm and dry and no rashes or lesions are noted. Psychiatric: Cooperative, appropriate mood & affect, normal judgment. Limitations: no limitations Course Vital Signs 12/11/19 12/11/19 12/11/19 06:07 06:58 07:57 Temperature 97.8 F Pulse Rate 109 H 91 97 Respiratory 18 16 18 Rate Blood Pressure 123/90 124/93 136/88 O2 Sat by Pulse 98 96 98 Oximetry Medical Decision Making - Medical Decision Making 34yo who is currently intoxicated presenting today for cc right sided abdominal pain. Intusseption on CT. vomiting controlled. Patient labs stable. NPO. IVF. Pt will be admitted for ETOH intoxication and consultation for intusspection. Patient on CIWA protocols, ativan PRN. Patient admitted appears well nontoxic. H unt is agreeable to admission and care plan-- he spoke with admitting provider. - Lab Data Result diagrams: 12/11/19 06:34 12/11/19 06:34 Lab Results 12/11/19 12/11/19 12/11/19 Range/Units 06:34 06:34 06:34 WBC 6.5 (3.8-10.6) k/uL RBC 4.64 (4.30-5.90) m/uL Hgb 16.0 (13.0-17.5) gm/dL Hct 46.0 (39.0-53.0) % MCV 99.1 (80.0-100.0) fL MCH 34.5 (25.0-35.0) pg MCHC 34.8 (31.0-37.0) g/dL RDW 14.4 (11.5-15.5) % Plt Count 284 (150-450) k/uL Neutrophils % 59 % Lymphocytes % 31 % Monocytes % 7 % Eosinophils % 1 % Basophils % 1 % Neutrophils # 3.9 (1.3-7.7) k/uL Lymphocytes # 2.0 (1.0-4.8) k/uL Monocytes # 0.4 (0-1.0) k/uL Eosinophils # 0.1 (0-0.7) k/uL Basophils # 0.0 (0-0.2) k/uL Sodium 142 (137-145) mmol/L Potassium 3.8 (3.5-5.1) mmol/L Chloride 104 (98-107) mmol/L Carbon Dioxide 27 (22-30) mmol/L Anion Gap 11 mmol/L BUN 6 L (9-20) mg/dL Creatinine 0.65 L (0.66-1.25) mg/dL Est GFR (CKD-EPI)AfAm >90 (>60 ml/min/1.73 sqM) Est GFR (CKD-EPI)NonAf >90 (>60 ml/min/1.73 sqM) Glucose 106 H (74-99) mg/dL Plasma Lactic Acid Destin 2.2 H* (0.7-2.0) mmol/L Calcium 9.2 (8.4-10.2) mg/dL Total Bilirubin 1.3 (0.2-1.3) mg/dL AST 195 H (17-59) U/L ALT 119 H (4-49) U/L Alkaline Phosphatase 105 (38-126) U/L Total Protein 8.1 (6.3-8.2) g/dL Albumin 4.6 (3.5-5.0) g/dL Amylase 96 (30-110) U/L Lipase 367 H (23-300) U/L Urine Color Urine Appearance (Clear) Urine pH (5.0-8.0) Ur Specific [place] (1.001-1.035) Urine Protein (Negative) Urine Glucose (UA) (Negative) Urine Ketones (Negative) Urine Blood (Negative) Urine Nitrite (Negative) Urine Bilirubin (Negative) Urine Urobilinogen (<2.0) mg/dL Ur Leukocyte Esterase (Negative) Serum Alcohol 259 H* mg/dL 12/11/19 Range/Units 06:58 WBC (3.8-10.6) k/uL RBC (4.30-5.90) m/uL Hgb (13.0-17.5) gm/dL Hct (39.0-53.0) % MCV (80.0-100.0) fL MCH (25.0-35.0) pg MCHC (31.0-37.0) g/dL RDW (11.5-15.5) % Plt Count (150-450) k/uL Neutrophils % % Lymphocytes % % Monocytes % % Eosinophils % % Basophils % % Neutrophils # (1.3-7.7) k/uL Lymphocytes # (1.0-4.8) k/uL Monocytes # (0-1.0) k/uL Eosinophils # (0-0.7) k/uL Basophils # (0-0.2) k/uL Sodium (137-145) mmol/L Potassium (3.5-5.1) mmol/L Chloride (98-107) mmol/L Carbon Dioxide (22-30) mmol/L Anion Gap mmol/L BUN (9-20) mg/dL Creatinine (0.66-1.25) mg/dL Est GFR (CKD-EPI)AfAm (>60 ml/min/1.73 sqM) Est GFR (CKD-EPI)NonAf (>60 ml/min/1.73 sqM) Glucose (74-99) mg/dL Plasma Lactic Acid [place] (0.7-2.0) mmol/L Calcium (8.4-10.2) mg/dL Total Bilirubin (0.2-1.3) mg/dL AST (17-59) U/L ALT (4-49) U/L Alkaline Phosphatase (38-126) U/L Total Protein (6.3-8.2) g/dL Albumin (3.5-5.0) g/dL Amylase (30-110) U/L Lipase (23-300) U/L Urine Color Yellow Urine Appearance Clear (Clear) Urine pH 7.0 (5.0-8.0) Ur Specific [place] 1.014 (1.001-1.035) Urine Protein Trace H (Negative) Urine Glucose (UA) Negative (Negative) Urine Ketones Negative (Negative) Urine Blood Negative (Negative) Urine Nitrite Negative (Negative) Urine Bilirubin Negative (Negative) Urine Urobilinogen <2.0 (<2.0) mg/dL Ur Leukocyte Esterase Negative (Negative) Serum Alcohol mg/dL Disposition Clinical Impression: Intussusception, Vomiting, Intoxication, Alcohol abuse Disposition: ADMITTED IP TO THIS HOSP Condition: Stable Is patient prescribed a controlled substance at d/c from ED?: No Referrals: None,Stated [Primary Care Provider] - 1-2 days Time of Disposition: 09:09 Decision to Admit Reason: Admit from EC Decision Date: 12/11/19 Decision Time: 09:09
--- NOTE | 2019-12-11 08:45 | CT ---
EXAMINATION TYPE: CT abdomen pelvis w con DATE OF EXAM: 12/11/2019 COMPARISON: None INDICATION: Abd pain DLP: 677.8 mGycm, Automated exposure control for dose reduction was used. CONTRAST: 100 mL of Isovue 300. Study performed without Oral Contrast TECHNIQUE: Axial images were obtained from above the diaphragm to the pubic rami in the axial plane a t 5 mm thick sections. Reconstructed images are reviewed on the computer in the coronal plane. FINDINGS: Limited CT sections are obtained the lung bases. The lung bases are clear. CT ABDOMEN: Liver: There is mild to moderate fatty infiltration to the liver. Spleen: Normal Pancreas: Normal Adrenal glands: The adrenal glands are normal. Gallbladder: Normal Kidneys: No masses are evident. No hydronephrosis is present. No cysts are present. Delayed images were obtained through the kidneys, which remain unremarkable. Aorta: Vascular calcification is within the aorta. Inferior vena cava: Normal. CT PELVIS: There may be a small bowel intussusception within the left upper quadrant. Series 201 image 41. Obstr uction however is not evident. There is fluid is within the colon. Distal small bowel loops are decom pressed. Studies without oral contrast limiting bowel evaluation. Appendix: Normal as visualized. Urinary bladder: Decompressed with limited evaluation Genitourinary structures: Some mild prostate hypertrophy may be present. Osseous structures: No suspicious lytic or sclerotic lesions. IMPRESSIONS: 1. There appears to be a small bowel intussusception within the left upper quadrant proximal jejunum without evidence of obstruction.
[2019-12-11] MEDS ORDERED: LORazepam 2 MG/ML INJ IV PRN ×3 (08:50)
[2019-12-11] MEDS ORDERED: THIAMINE 100 MG/ML 2 ML VIAL IM STA (08:50)
[2019-12-11] MEDS ORDERED: ONDANSETRON 4 MG/2 ML VIAL IVP STA (08:51)
[2019-12-11] MEDS ORDERED: NALOXONE 0.4 MG/ML 1 ML VIAL IV PRN (09:09)
[2019-12-11] MEDS: SODIUM CHLORIDE 0.9% 1,000 ML IV SCH (10:53)
--- NOTE | 2019-12-11 14:36 | P.HPIM ---
History of Present Illness 34-year-old pleasant gentleman came in with comments of severe abdominal pain has been going on for 2 weeks and since last night he was unable to sleep stent 10/10 abdominal pain feels like there is a ball in the abdomen.patient denied any diarrhea patient had to vomiting multiple episodes for last 2 weeks. Patient denied any melena hematochezia patient is found to intussusception of the jejunum on the left side. Patient does admit to drinking alcohol every daydoes have elevated liver enzymes and elevated MCV secondary to that Review of Systems REVIEW OF SYSTEMS: CONSTITUTIONAL: No fever, no malaise, no fatigue. HEENT: No recent visual problems or hearing problems. Denied any sore throat. CARDIOVASCULAR: No chest pain, orthopnea, PND, no palpitations, no syncope. PULMONARY: No shortness of breath, no cough, no hemoptysis. GASTROINTESTINAL:as mentioned in HPI NEUROLOGICAL: No headaches, no weakness, no numbness. HEMATOLOGICAL: Denies any bleeding or petechiae. GENITOURINARY: Denies any burning micturition, frequency, or urgency. MUSCULOSKELETAL/RHEUMATOLOGICAL: Denies any joint pain, swelling, or any muscle pain. ENDOCRINE: Denies any polyuria or polydipsia. The rest of the 14-point review of systems is negative. Past Medical History Past Medical History: No Reported History History of Any Multi-Drug Resistant Organisms: None Reported Past Surgical History: Ear Surgery Additional Past Surgical History / Comment(s): jaw surgery, tube surgery, dog attack and repair on top of head. Past Anesthesia/Blood Transfusion Reactions: No Reported Reaction Past Psychological History: Depression Smoking Status: Current every day smoker Past Alcohol Use History: Daily, Heavy Past Drug Use History: Marijuana - Past Family History Mother History Unknown: Yes Father History Unknown: Yes Medications and Allergies Home Medications Medication Instructions Recorded Confirmed Type No Known Home Medications 06/01/19 12/11/19 History Allergies Allergy/AdvReac Type Severity Reaction Status Date / Time Penicillins Allergy Swelling Verified 12/11/19 09:18 Physical Exam Vitals: Vital Signs Temp Pulse Resp BP Pulse Ox 12/11/19 13:43 97.8 F 81 18 122/78 98 12/11/19 13:00 80 18 124/84 100 12/11/19 11:38 62 18 116/79 98 12/11/19 07:57 97 18 136/88 98 12/11/19 06:58 91 16 124/93 96 12/11/19 06:07 97.8 F 109 H 18 123/90 98 Intake and Output 12/10/19 12/11/19 12/11/19 22:59 06:59 14:59 Other: Weight 68.039 kg PHYSICAL EXAMINATION: GENERAL: The patient is alert and oriented x3, not in any acute distress. Well developed, well nourished. HEENT: Pupils are round and equally reacting to light. EOMI. No scleral icterus. No conjunctival pallor. Normocephalic, atraumatic. No pharyngeal erythema. No thyromegaly. CARDIOVASCULAR: S1 and S2 present. No murmurs, rubs, or gallops. PULMONARY: Chest is clear to auscultation, no wheezing or crackles. ABDOMEN: Soft, mild tenderness in the right lower quadrant, nondistended, normoactive bowel sounds. No palpable organomegaly. MUSCULOSKELETAL: No joint swelling or deformity. EXTREMITIES: No cyanosis, clubbing, or pedal edema. NEUROLOGICAL: Gross neurological examination did not reveal any focal deficits. SKIN: No rashes. Results CBC & Chem 7: 12/11/19 06:34 12/11/19 06:34 Labs: Abnormal Lab Results - Last 24 Hours (Table) 12/11/19 12/11/19 12/11/19 Range/Units 06:34 06:34 06:58 BUN 6 L (9-20) mg/dL Creatinine 0.65 L (0.66-1.25) mg/dL Glucose 106 H (74-99) mg/dL Plasma Lactic Acid [place] 2.2 H* (0.7-2.0) mmol/L AST 195 H (17-59) U/L ALT 119 H (4-49) U/L Lipase 367 H (23-300) U/L Urine Protein Trace H (Negative) Serum Alcohol 259 H* mg/dL Assessment and Plan Plan: abdominal pain: Intussusception the CAT scan to the surgery will be consulted patient was started on IV fluids -Alcohol abuse, alcohol withdrawal: Patient will be on Ativan CIWA protocol started on IV fluids in the -Acute alcoholic hepatitis expected to improve with cessation of alcohol -nicotine abuse: Counseling was provided. due to prophylaxis early ambulation GI prophylaxis Protonix
[2019-12-11] MEDS: THIAMINE 100 MG TAB PO SCH (15:47)
[2019-12-11] MEDS: PANTOPRAZOLE 40 MG/10 ML VIAL IVP SCH (15:47)
[2019-12-11] MEDS ORDERED: ONDANSETRON 4 MG/2 ML VIAL IVP PRN (18:49)
[2019-12-12] MEDS: SODIUM CHLORIDE 0.9% 1,000 ML IV SCH ×2 (00:15→07:49)
[2019-12-12 07:32] LABS: ALT 97 U/L (4-49); AST 143 U/L (17-59); African American GFR (CKD) >90 (>60 ml/min/1.73 sqM); Albumin 3.9 g/dL (3.5-5.0); Alkaline Phosphatase 79 U/L (38-126); Anion Gap 9 mmol/L; Blood Urea Nitrogen 6 mg/dL (9-20); Calcium 8.9 mg/dL (8.4-10.2); Carbon Dioxide 22 mmol/L (22-30); Chloride 103 mmol/L (98-107); Glucose 76 mg/dL (74-99); Non-African American GFR(CKD) >90 (>60 ml/min/1.73 sqM); Potassium 3.9 mmol/L (3.5-5.1); Sodium 134 mmol/L (137-145); Total Bilirubin 2.6 mg/dL (0.2-1.3); Total Protein 7.1 g/dL (6.3-8.2)
--- NOTE | 2019-12-12 07:50 | P.GSCN ---
History of Present Illness Consult date: 12/11/19 Reason for Consult: Intussusception Requesting physician: Tracee Gutierres History of present illness: CHIEF COMPLAINT: Intussusception HISTORY OF PRESENT ILLNESS: 34-year-old male who presented to the emergency room with chief complaint of abdominal pain. Patient examined at the bedside with Dr. Stark. Patient currently denies abdominal pain. Denies nausea or vomi ting. Patient is requesting to eat. PAST MEDICAL HISTORY: See list. PAST SURGICAL HISTORY: See list. SOCIAL HISTORY: History of alcohol abuse REVIEW OF SYSTEMS: CONSTITUTIONAL: Denies fever or chills. HEENT: Denies blurred vision, vision changes, or eye pain. Denies hemoptysis CARDIOVASCULAR: Denies chest pain or pressure. RESPIRATORY: No shortness of breath. GASTROINTESTINAL: Refer to HPI for pertinent findings HEMATOLOGIC: Denies bleeding disorders. GENITOURINARY: Denies any blood in urine. SKIN: Denies pruitis. Denies rash. PHYSICAL EXAM: VITAL SIGNS: Reviewed. GENERAL: Well-developed in no acute distress. HEENT: No sclera icterus. Extraocular movements grossly intact. Moist buccal mucosa. Head is atraumatic, normocephalic. ABDOMEN: Soft. Nondistended. Nontender. NEUROLOGIC: Alert and oriented. Cranial nerves II through XII grossly intact. LABORATORY DATA: WBC 6.5. Hemoglobin 16.0. Platelet count 284. Lactic acid 2.2. Repeat 1.9. AST 185. ALT 119. IMAGING: CT abdomen and pelvis: There appears to be a small bowel intussusception within the left upper quadrant proximal jejunum without evidence of obstruction. ASSESSMENT: 1. Abdominal pain 2. Small bowel intussusception 3. History of alcohol abuse PLAN: Begin clear liquid diet. Advance as tolerated No surgical intervention recommended Nurse practitioner note has been reviewed by physician. Signing provider agrees with the documented findings, assessment, and plan of care. Past Medical History Past Medical History: No Reported History History of Any Multi-Drug Resistant Organisms: None Reported Past Surgical History: Ear Surgery Additional Past Surgical History / Comment(s): jaw surgery, tube surgery, dog attack and repair on top of head. Past Anesthesia/Blood Transfusion Reactions: No Reported Reaction Past Psychological History: Depression Smoking Status: Current every day smoker Past Alcohol Use History: Daily, Heavy Past Drug Use History: Marijuana - Past Family History Mother History Unknown: Yes Father History Unknown: Yes Medications and Allergies Home Medications Medication Instructions Recorded Confirmed Type No Known Home Medications 06/01/19 12/11/19 History Allergies Allergy/AdvReac Type Severity Reaction Status Date / Time Penicillins Allergy Swelling Verified 12/11/19 09:18 Surgical - Exam Vital Signs Temp Pulse Resp BP Pulse Ox 97.8 F 109 H 18 123/90 98 12/11/19 06:07 12/11/19 06:07 12/11/19 06:07 12/11/19 06:07 12/11/19 06:07 Results - Labs 12/11/19 06:34 12/12/19 06:57 Abnormal Lab Results - Last 24 Hours (Table) 12/11/19 12/11/19 12/11/19 Range/Units 06:34 06:34 06:58 BUN 6 L (9-20) mg/dL Creatinine 0.65 L (0.66-1.25) mg/dL Glucose 106 H (74-99) mg/dL Plasma Lactic Acid [place] 2.2 H* (0.7-2.0) mmol/L AST 195 H (17-59) U/L ALT 119 H (4-49) U/L Lipase 367 H (23-300) U/L Urine Protein Trace H (Negative) Serum Alcohol 259 H* mg/dL Diabetes panel 12/11/19 Range/Units 06:34 Sodium 142 (137-145) mmol/L Potassium 3.8 (3.5-5.1) mmol/L Chloride 104 (98-107) mmol/L Carbon Dioxide 27 (22-30) mmol/L BUN 6 L (9-20) mg/dL Creatinine 0.65 L (0.66-1.25) mg/dL Glucose 106 H (74-99) mg/dL Calcium 9.2 (8.4-10.2) mg/dL AST 195 H (17-59) U/L ALT 119 H (4-49) U/L Alkaline Phosphatase 105 (38-126) U/L Total Protein 8.1 (6.3-8.2) g/dL Albumin 4.6 (3.5-5.0) g/dL Calcium panel 12/11/19 Range/Units 06:34 Calcium 9.2 (8.4-10.2) mg/dL Albumin 4.6 (3.5-5.0) g/dL Pituitary panel 12/11/19 Range/Units 06:34 Sodium 142 (137-145) mmol/L Potassium 3.8 (3.5-5.1) mmol/L Chloride 104 (98-107) mmol/L Carbon Dioxide 27 (22-30) mmol/L BUN 6 L (9-20) mg/dL Creatinine 0.65 L (0.66-1.25) mg/dL Glucose 106 H (74-99) mg/dL Calcium 9.2 (8.4-10.2) mg/dL Adrenal panel 12/11/19 Range/Units 06:34 Sodium 142 (137-145) mmol/L Potassium 3.8 (3.5-5.1) mmol/L Chloride 104 (98-107) mmol/L Carbon Dioxide 27 (22-30) mmol/L BUN 6 L (9-20) mg/dL Creatinine 0.65 L (0.66-1.25) mg/dL Glucose 106 H (74-99) mg/dL Calcium 9.2 (8.4-10.2) mg/dL Total Bilirubin 1.3 (0.2-1.3) mg/dL AST 195 H (17-59) U/L ALT 119 H (4-49) U/L Alkaline Phosphatase 105 (38-126) U/L Total Protein 8.1 (6.3-8.2) g/dL Albumin 4.6 (3.5-5.0) g/dL
[2019-12-12] MEDS: PANTOPRAZOLE 40 MG/10 ML VIAL IVP SCH (08:26)
[2019-12-12] MEDS: THIAMINE 100 MG TAB PO SCH (08:27)
[2019-12-12] MEDS ORDERED: HALOPERIDOL LACTATE 5 MG/ML 1 ML VIAL IM PRN (10:59)
[2019-12-12 11:53] VITALS: BP 134/81; PULSE 67; RESP 17; TEMP 97.7
--- NOTE | 2019-12-13 15:27 | P.DS ---
Providers Date of admission: 12/11/19 09:15 Expected date of discharge: 12/12/19 Attending physician: Dinesh Mishra Consults: 12/11/19 13:15 Consult Physician Routine Consulting Provider: Rhys Stark Consult Reason/Comments: Intussuception Do you want consulting provider notified?: Yes Primary care physician: Stated None Hospital Course: Final Diagnosis -abdominal pain: Intussusception noted on the CAT scan -Alcohol abuse, alcohol withdrawal -Acute alcoholic hepatitis expected to improve with cessation of alcohol -nicotine abuse: Counseling was provided. -DVT prophylaxis -GI prophylaxis Discharge disposition Patient is being discharged in a stable condition with guarded prognosis to home and will follow-up with primary care provider in the outpatient setting. Alfonso maldonado will also follow-up with surgery in the outpatient setting. Patient will continue on Prilosec 20 mg twice daily for the next 2 weeks. Total time taken is 35 minutes. History of present illness This is a 34-year-old male who was recently admitted with severe abdominal pain and was found to have intussusception and was being closely monitored. Patient drinks alcohol daily and also had elevated liver enzymes and an elevated MCV secondary to alcohol intake. Patient was seen and evaluated by surgery recommending no surgical intervention at this time. Patient will follow-up with surgery in the outpatient setting. Patient will continue on Prilosec twice daily for the next 2 weeks. Discussed with the patient at length about avoiding alcohol. Patient's abdominal pain continues and is intermittent although states has improved from yesterday, he is tolerating diet and would like to go home. Currently no reports of chest pain, shortness of breath, or palpitations. Patient is afebrile. No reports of nausea or vomiting and patient is tolerating diet. Patient will be discharged today. Guarded prognosis. On exam vital signs are stable. Temp is 97.7F, pulse is 67, respirations are 17, blood pressure is 134/81, oxygen saturation is 98% on room air. Cardio S1, S2 are present. Respiratory system shows clear to auscultation. Abdomen is soft and nontender. Nervous system shows no focal deficits. Please refer to medication reconciliation sheet for a list of medications. Patient Condition at Discharge: Stable Plan - Discharge Summary Discharge Rx Participant: No New Discharge Prescriptions: New Folic Acid 1 mg PO DAILY #30 tablet Multivitamins, Thera [Multivitamin] 1 tab PO DAILY #30 tablet Omeprazole [PriLOSEC] 20 mg PO AC-BID 15 Days #30 cap Thiamine [Vitamin B-1] 100 mg PO BID-W/MEALS 30 Days #60 tab Discharge Medication List Folic Acid 1 mg PO DAILY #30 tablet 12/12/19 [Rx] Multivitamins, Thera [Multivitamin] 1 tab PO DAILY #30 tablet 12/12/19 [Rx] Omeprazole [PriLOSEC] 20 mg PO AC-BID 15 Days #30 cap 12/12/19 [Rx] Thiamine [Vitamin B-1] 100 mg PO BID-W/MEALS 30 Days #60 tab 12/12/19 [Rx] Follow up Appointment(s)/Referral(s): None,Stated [Primary Care Provider] - 1-2 days Rhys Stark MD [STAFF PHYSICIAN] - 3 Weeks Activity/Diet/Wound Care/Special Instructions: Activity Limited until follow-up Continue current diet and slowly advance as tolerated Follow-up with primary care provider upon discharge Follow-up surgery in the outpatient setting Continue with Prilosec twice daily the next 2 weeks Avoid alcohol intake Discharge Disposition: HOME SELF-CARE
== END 2019-12-12 13:44 | disposition home or self-care (01) ==
LOC: EC 06:00 → INTOOBSV 09:15 → 5NMEDONC 09:15 → UNDODISIN 12-12 13:44
PROVIDERS: ADMIT Hospitalist; ATTEND Hospitalist
DX: K56.1 Intussusception (principal); Z11.59 Encounter for screening for other viral diseases; F10.230 Alcohol dependence with withdrawal, uncomplicated; K70.10 Alcoholic hepatitis without ascites; F17.200 Nicotine dependence, unspecified, uncomplicated; F10.220 Alcohol dependence with intoxication, uncomplicated; F32.9 Major depressive disorder, single episode, unspecified; Z88.0 Allergy status to penicillin; Y90.8 Blood alcohol level of 240 mg/100 ml or more; Z98.890 Other specified postprocedural states; Z87.828 Personal history of other (healed) physical injury and trauma
CPT/HCPCS: 96376 ×2; 96375 ×2; 96361; 96372; 96374; 99285; 36415; 80053 ×2; 82150; 83605; 83690; 85025; 81003; 87040; 74177; G0378 ×2; G0480; U0003; J2060; J3411; J2405; C9113 ×2; Q9967; 80320

== ENCOUNTER 2020-02-05 14:21 | Emergency (ER) | payer OTHER ==
[2020-02-05] MEDS ORDERED: LIDOCAINE 1%-EPI 1:100,000 20 ML VIAL SQ STA (15:14)
--- NOTE | 2020-02-05 15:15 | ED ---
General Adult HPI - General Chief complaint: Skin/Abscess/Foreign Body Stated complaint: L Leg Injury Time Seen by Provider: 02/05/20 15:03 Source: patient Mode of arrival: ambulatory Limitations: no limitations - History of Present Illness Initial comments: Dictation was produced using [employer] dictation software. please excuse any grammatical, word or spelling errors. This patient was cared for during a federal and state declared state of emergency secondary to Covid 19 Chief Complaint: 34-year-old male presents with splinter and left [place]. 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 He tried to remove it however the prescription broken off. Tried to get his girlfriend and it however she did not want to consent. Patient states. Patient received a tetanus update 1 or 2 m onths ago. The ROS documented in this emergency department record has been reviewed and confirmed by me. Those systems with pertinent positive or negative responses have been documented in the HPI. All other systems are other negative and/or noncontributory. PHYSICAL EXAM: General Impression: Alert and oriented x3, not in acute distress HEENT: Normocephalic atraumatic, extra-ocular movements intact, pupils equal and reactive to light bilaterally, mucous membranes moist. Cardiovascular: Heart regular rate and rhythm Chest: Able to complete full sentences, no retractions, no tachypnea Abdomen: abdomen soft, non-tender, non-distended, no organomegaly Musculoskeletal: Pulses present and equal in all extremities, no peripheral edema Motor: no focal deficits noted Neurological: CN II-XII grossly intact, no focal motor or sensory deficits noted Skin: Intact with no visualized rashes Left lower extremity: Puncture wound to the anterior portion of the mid anterior tibia with palpable splinter just under the dermis Psych: Normal affect and mood ED course: 34-year-old male presents with foreign body in the subcutaneous portion of his anterior left [place] vital signs upon arrival are within acceptable limits. Local anesthetic was use to anesthetize the area. Foreign body was retrieved. Patient's tetanus is ready up-to-date. Patient given 5 day course of Keflex for infection prophylaxis. - Related Data Previous Rx's Medication Instructions Recorded Folic Acid 1 mg PO DAILY #30 tablet 12/12/19 Multivitamins, Thera [Multivitamin] 1 tab PO DAILY #30 tablet 12/12/19 Omeprazole [PriLOSEC] 20 mg PO AC-BID 15 Days #30 cap 12/12/19 Thiamine [Vitamin B-1] 100 mg PO BID-W/MEALS 30 Days #60 12/12/19 tab Cephalexin [Keflex] 500 mg PO Q6HR 5 Days #20 cap 02/05/20 Allergies Allergy/AdvReac Type Severity Reaction Status Date / Time Penicillins Allergy Swelling Verified 02/05/20 14:45 Review of Systems ROS Statement: Those systems with pertinent positive or pertinent negative responses have been documented in the HPI. ROS Other: All systems not noted in ROS Statement are negative. Past Medical History Past Medical History: No Reported History History of Any Multi-Drug Resistant Organisms: None Reported Past Surgical History: Ear Surgery Additional Past Surgical History / Comment(s): jaw surgery, tube surgery, dog attack and repair on top of head. Past Anesthesia/Blood Transfusion Reactions: No Reported Reaction Past Psychological History: Depression Smoking Status: Current every day smoker Past Alcohol Use History: Daily, Heavy Past Drug Use History: Marijuana - Past Family History Mother History Unknown: Yes Father History Unknown: Yes General Exam Limitations: no limitations Course Vital Signs 02/05/20 14:44 Temperature 98.1 F Pulse Rate 71 Respiratory 20 Rate Blood Pressure 131/88 O2 Sat by Pulse 99 Oximetry Procedures - Forgein Body Removal Soft Tissue Consent Obtained: verbal consent Site: lower extremity Foreign Body Suspected: Wood Foreign Body Removed: yes Foreign Body Removal Technique: Instrumentation Patient Tolerated Procedure: well Additional Comments: 3 x 0.5 cm piece of wood Disposition Clinical Impression: Foreign body in subcutaneous tissue Disposition: HOME SELF-CARE Condition: Good Instructions (If sedation given, give patient instructions): Soft Tissue Foreign Body (ED) Additional Instructions: Please seek medical attention with any worsening redness pain or swelling. Prescriptions: Cephalexin [Keflex] 500 mg PO Q6HR 5 Days #20 cap Is patient prescribed a controlled substance at d/c from ED?: No Referrals: Nonstaff,Physician [Primary Care Provider] - 1-2 days Time of Disposition: 15:28
[2020-02-05] MEDS: DIPH,PERTUS(ACELL)TETVAC-LF 0.5 ML VIAL IM ONE ×2 (15:19→15:21)
[2020-02-05 15:49] VITALS: RESP 18
[2020-02-05 15:51] VITALS: BP 132/92; PULSE 81; TEMP 98.3
== END 2020-02-05 15:54 | disposition home or self-care (01) ==
LOC: EC 14:21
DX: S81.842A Puncture wound with foreign body, left lower leg, initial encounter (principal); F17.200 Nicotine dependence, unspecified, uncomplicated; Z88.0 Allergy status to penicillin; W45.8XXA Other foreign body or object entering through skin, initial encounter; Y93.89 Activity, other specified; Y92.69 Other specified industrial and construction area as the place of occurrence of the external cause; Y99.0 Civilian activity done for income or pay
CPT/HCPCS: 10120; 90715; 99283

== ENCOUNTER 2020-03-21 20:43 | Emergency (ER) | payer OTHER ==
[2020-03-21 20:56] VITALS: TEMP 98.4
[2020-03-21] MEDS ORDERED: KETOROLAC 15 MG/ML 1 ML VIAL IM STA (21:08)
--- NOTE | 2020-03-21 21:35 | XR ---
EXAMINATION TYPE: XR ribs RT w pa chest xray DATE OF EXAM: 03/21/2020 COMPARISON: NONE HISTORY: Rib pain TECHNIQUE: 5 views FINDINGS: Heart and mediastinum are normal. Lungs are clear of infiltrate. There is no pleural effusi on or pneumothorax. The right ribs appear intact. IMPRESSION: Normal chest. Normal right ribs.
--- NOTE | 2020-03-21 21:38 | ED ---
General Adult HPI <Marshall Lima - Last Filed: 03/21/20 23:48> - General Source: patient, RN notes reviewed Mode of arrival: ambulatory Limitations: no limitations <Yuri Sol - Last Filed: 03/22/20 10:20> - General Chief complaint: Abdominal Pain Stated complaint: Upper Abd Pain Time Seen by Provider: 03/21/20 21:00 - History of Present Illness Initial comments: 34-year-old male presents to the emergency room for a chief complaint of right anterior side pain. Patient reports he has pain on the right side of his ribs and upper abdomen. Reports his has an ongoing for about 3 weeks. Patient does not remember when this started or how this started but states that he was intoxicated at the time. He does not specifically recall any falls. He denies diarrhea. Denies nausea vomiting. Denies any fevers.Patient has no other complaints at this time including shortness of breath, chest pain, nausea or vomiting, headache, or visual changes. (Yuri Sol) - Related Data Previous Rx's Medication Instructions Recorded Folic Acid 1 mg PO DAILY #30 tablet 12/12/19 Multivitamins, Thera [Multivitamin] 1 tab PO DAILY #30 tablet 12/12/19 Omeprazole [PriLOSEC] 20 mg PO AC-BID 15 Days #30 cap 12/12/19 Thiamine [Vitamin B-1] 100 mg PO BID-W/MEALS 30 Days #60 12/12/19 tab Cephalexin [Keflex] 500 mg PO Q6HR 5 Days #20 cap 02/05/20 Allergies Allergy/AdvReac Type Severity Reaction Status Date / Time Penicillins Allergy Swelling Verified 03/21/20 20:56 Review of Systems ROS Other: All systems not noted in ROS Statement are negative. <Marshall Lima - Last Filed: 03/21/20 23:48> ROS Other: All systems not noted in ROS Statement are negative. <Yuri Sol - Last Filed: 03/22/20 10:20> ROS Statement: Those systems with pertinent positive or pertinent negative responses have been documented in the HPI. Past Medical History Past Medical History: No Reported History History of Any Multi-Drug Resistant Organisms: None Reported Past Surgical History: Ear Surgery Additional Past Surgical History / Comment(s): jaw surgery, tube surgery, dog attack and repair on top of head. Past Anesthesia/Blood Transfusion Reactions: No Reported Reaction Past Psychological History: Depression Smoking Status: Current every day smoker Past Alcohol Use History: Daily, Heavy Past Drug Use History: Marijuana - Past Family History Mother History Unknown: Yes Father History Unknown: Yes <Yuri Sol - Last Filed: 03/22/20 10:20> General Exam Limitations: no limitations General appearance: alert, in no apparent distress Head exam: Present: atraumatic, normocephalic, normal inspection Eye exam: Present: normal appearance, PERRL, EOMI. Absent: scleral icterus, conjunctival injection, periorbital swelling ENT exam: Present: normal exam, mucous membranes moist Neck exam: Present: normal inspection, full ROM. Absent: tenderness, menin gismus, lymphadenopathy Respiratory exam: Present: normal lung sounds bilaterally, chest wall tenderness (Right-sided anterior rib tenderness). Absent: respiratory distress, wheezes, rales, rhonchi, stridor Cardiovascular Exam: Present: regular rate, normal rhythm, normal heart sounds. Absent: systolic murmur, diastolic murmur, rubs, gallop, clicks GI/Abdominal exam: Present: soft, tenderness (Minimal right upper quadrant tenderness, negative Mario sign. There is also tenderness to the right side of the anterior ribs.), normal bowel sounds. Absent: distended, guarding, rebound, rigid Neurological exam: Present: alert <Yuri Sol - Last Filed: 03/22/20 10:20> Course <Yuri Sol - Last Filed: 03/22/20 10:20> Vital Signs 03/21/20 03/21/20 03/21/20 20:53 21:58 23:11 Temperature 98.4 F Pulse Rate 122 H 114 H 99 Respiratory 18 20 18 Rate Blood Pressure 157/90 144/103 130/96 O2 Sat by Pulse 95 97 96 Oximetry - Reevaluation(s) Reevaluation #1: 03/21/20 23:06 pt reevaluated at this time, clinically sober, ambulating around exam room. (Yuri Sol) Medical Decision Making - Lab Data Result diagrams: 03/21/20 22:30 03/21/20 22:30 <Marshall Lima - Last Filed: 03/21/20 23:48> - Lab Data Result diagrams: 03/21/20 22:30 03/21/20 22:30 <Yuri Sol - Last Filed: 03/22/20 10:20> - Medical Decision Making Vitals are stable. Patient is mildly tachycardic in the emergency room likely related to alcoholism. Patient mildly intoxicated upon arrival. CBC is unremarkable. CMP does show transaminitis which is likely related to patient's alcoholism. Lipase 444, not triple patient's baseline. Urinalysis is negative. Chest x-ray with right-sided rib study did not show any acute findings. Currently pending ultrasound evaluation of the right upper quadrant. Patient reevaluated at this time, clinically sober, ambulating around exam room. Care signed out to Dr Lima at 2300. (Yuri Sol) - Lab Data Lab Results 03/21/20 03/21/20 03/21/20 Range/Units 22:30 22:30 22:30 WBC 8.4 (3.8-10.6) k/uL RBC 5.07 (4.30-5.90) m/uL Hgb 17.4 (13.0-17.5) gm/dL Hct 52.4 (39.0-53.0) % MCV 103.3 H (80.0-100.0) fL MCH 34.3 (25.0-35.0) pg MCHC 33.3 (31.0-37.0) g/dL RDW 12.8 (11.5-15.5) % Plt Count 252 (150-450) k/uL Neutrophils % 60 % Lymphocytes % 31 % Monocytes % 5 % Eosinophils % 1 % Basophils % 1 % Neutrophils # 5.0 (1.3-7.7) k/uL Lymphocytes # 2.6 (1.0-4.8) k/uL Monocytes # 0.4 (0-1.0) k/uL Eosinophils # 0.1 (0-0.7) k/uL Basophils # 0.1 (0-0.2) k/uL Macrocytosis Slight Sodium 146 H (137-145) mmol/L Potassium 4.0 (3.5-5.1) mmol/L Chloride 106 (98-107) mmol/L Carbon Dioxide 30 (22-30) mmol/L Anion Gap 10 mmol/L BUN 6 L (9-20) mg/dL Creatinine 0.88 (0.66-1.25) mg/dL Est GFR (CKD-EPI)AfAm >90 (>60 ml/min/1.73 sqM) Est GFR (CKD-EPI)NonAf >90 (>60 ml/min/1.73 sqM) Glucose 121 H (74-99) mg/dL Calcium 9.8 (8.4-10.2) mg/dL Magnesium 1.8 (1.6-2.3) mg/dL Total Bilirubin 0.5 (0.2-1.3) mg/dL AST 204 H (17-59) U/L ALT 237 H (4-49) U/L Alkaline Phosphatase 134 H (38-126) U/L Total Protein 8.6 H (6.3-8.2) g/dL Albumin 4.9 (3.5-5.0) g/dL Amylase 101 (30-110) U/L Lipase 444 H (23-300) U/L Urine Color Light Yellow Urine Appearance Clear (Clear) Urine pH 6.0 (5.0-8.0) Ur Specific [place] 1.009 (1.001-1.035) Urine Protein Negative (Negative) Urine Glucose (UA) Negative (Negative) Urine Ketones Negative (Negative) Urine Blood Negative (Negative) Urine Nitrite Negative (Negative) Urine Bilirubin Negative (Negative) Urine Urobilinogen <2.0 (<2.0) mg/dL Ur Leukocyte Esterase Negative (Negative) Disposition <Marshall Lima - Last Filed: 03/21/20 23:48> Is patient prescribed a controlled substance at d/c from ED?: No Time of Disposition: 23:07 <Yuri Sol - Last Filed: 03/22/20 10:20> Clinical Impression: Right upper quadrant abdominal pain, Alcoholic hepatitis, Constipation Disposition: HOME SELF-CARE Condition: Good Instructions (If sedation given, give patient instructions): Abdominal Pain (ED) Additional Instructions: Please follow-up with your doctor. Return to the emergency room for any worsening symptoms. Referrals: Nonstaff,Physician [Primary Care Provider] - 1-2 days
[2020-03-21] MEDS ORDERED: SODIUM CHLORIDE 0.9% 2,000 ML IV STA (22:18)
[2020-03-21] MEDS ORDERED: KETOROLAC 15 MG/ML 1 ML VIAL IVP STA (22:34)
[2020-03-21 22:40] LABS: Basophils # (A) 0.1 k/uL (0-0.2); Basophils % (A) 1 %; Eosinophils # (A) 0.1 k/uL (0-0.7); Eosinophils % (A) 1 %; HCT 52.4 % (39.0-53.0); HGB 17.4 gm/dL (13.0-17.5); Lymphocytes # (A) 2.6 k/uL (1.0-4.8); Lymphocytes % (A) 31 %; MCH 34.3 pg (25.0-35.0); MCHC 33.3 g/dL (31.0-37.0); MCV 103.3 fL (80.0-100.0); Macrocytosis Slight; Monocytes # (A) 0.4 k/uL (0-1.0); Monocytes % (A) 5 %; Neutrophils % (A) 60 %; Platelet Count 252 k/uL (150-450); RBC 5.07 m/uL (4.30-5.90); RDW 12.8 % (11.5-15.5); WBC 8.4 k/uL (3.8-10.6)
[2020-03-21 22:43] LABS: Appearance,Urine Clear (Clear); Bilirubin,Urine Negative (Negative); Blood,Urine Negative (Negative); Color,Urine Light Yellow; Glucose,Urine (UA) Negative (Negative); Ketones,Urine Negative (Negative); Leukocyte Esterase,Urine Negative (Negative); Nitrite,Urine Negative (Negative); Protein,Urine Negative (Negative); Specific Gravity,Urine 1.009 (1.001-1.035); Urobilinogen,Urine <2.0 mg/dL (<2.0)
[2020-03-21 22:52] LABS: ALT 237 U/L (4-49); AST 204 U/L (17-59); African American GFR (CKD) >90 (>60 ml/min/1.73 sqM); Albumin 4.9 g/dL (3.5-5.0); Alkaline Phosphatase 134 U/L (38-126); Amylase 101 U/L (30-110); Anion Gap 10 mmol/L; Blood Urea Nitrogen 6 mg/dL (9-20); Calcium 9.8 mg/dL (8.4-10.2); Carbon Dioxide 30 mmol/L (22-30); Chloride 106 mmol/L (98-107); Glucose 121 mg/dL (74-99); Magnesium 1.8 mg/dL (1.6-2.3); Non-African American GFR(CKD) >90 (>60 ml/min/1.73 sqM); Sodium 146 mmol/L (137-145); Total Bilirubin 0.5 mg/dL (0.2-1.3); Total Protein 8.6 g/dL (6.3-8.2)
[2020-03-21 23:12] VITALS: BP 130/96; PULSE 99; RESP 18
--- NOTE | 2020-03-21 23:15 | US ---
EXAMINATION TYPE: US gallbladder DATE OF EXAM: 03/21/2020 COMPARISON: NONE CLINICAL HISTORY: pain. Patient states he drinks a fifth of vodka per day. RUQ pain. Elevated LFTs EXAM MEASUREMENTS: Liver Length: 15.8 cm Gallbladder Wall: 0.2 cm CBD: 0.5 cm Right Kidney: 9.6 x 4.3 x 4.9 cm Pancreas: Obscured by bowel gas Liver: Coarse, heterogeneous echotexture Gallbladder: wnl Evidence for sonographic Mario's sign: Yes CBD: wnl as visualized Right Kidney: No hydronephrosis or masses seen IMPRESSION: No gallstones or dilated ducts. No focal liver defect. Liver is slightly echogenic sugges tive of some fatty infiltration.
== END 2020-03-22 00:01 | disposition home or self-care (01) ==
LOC: EC 20:43
DX: K70.10 Alcoholic hepatitis without ascites (principal); K59.00 Constipation, unspecified; R00.0 Tachycardia, unspecified; R74.0 Nonspecific elevation of levels of transaminase and lactic acid dehydrogenase [LDH]; F10.129 Alcohol abuse with intoxication, unspecified; Y90.9 Presence of alcohol in blood, level not specified; F17.200 Nicotine dependence, unspecified, uncomplicated; Z88.0 Allergy status to penicillin
CPT/HCPCS: 36415; 80053; 82150; 83690; 83735; 85025; 81003; 71101; 76705; 99283; 96374; 96372; J1885

== ENCOUNTER 2021-09-11 15:59 | Emergency (ER) | payer OTHER ==
[2021-09-11 16:08] VITALS: TEMP 98.6
[2021-09-11] MEDS ORDERED: SODIUM CHLORIDE 0.9% 1,000 ML IV STA (17:20)
[2021-09-11] MEDS ORDERED: ONDANSETRON 4 MG/2 ML VIAL IVP STA (17:20)
--- NOTE | 2021-09-11 18:08 | ED ---
Abdominal Pain HPI - General Chief Complaint: Abdominal Pain Stated Complaint: N/V,D,Abdominal Pain Source: patient Mode of arrival: ambulatory Limitations: no limitations - History of Present Illness Initial Comments: Davey is a 36-year-old male who presents the ER today for evaluation of right lower quadrant abdominal pain with associated nausea and vomiting. Patient reports over the past couple months every 2 weeks or so he'll have a flare of nausea and vomiting. He's not identified any foods that cause this. Patient states he didn't have these symptoms prior to 2 months ago. Patient states that this is the third or fourth time this happened. Patient states that today he's had nausea vomiting for 3 days but also developed pain in the right lower quadrant. Patient denies any fevers or chills. Patient has no personal history or family history of inflammatory or irritable bowel disease. No known food ALLERGIES. - Related Data Home Medications Medication Instructions Recorded Confirmed No Known Home Medications 09/11/21 09/11/21 Allergies Allergy/AdvReac Type Severity Reaction Status Date / Time Penicillins Allergy Swelling Verified 09/11/21 18:08 Review of Systems ROS Statement: Those systems with pertinent positive or pertinent negative responses have been documented in the HPI. ROS Other: All systems not noted in ROS Statement are negative. Past Medical History Past Medical History: No Reported History History of Any Multi-Drug Resistant Organisms: None Reported Past Surgical History: Ear Surgery Additional Past Surgical History / Comment(s): jaw surgery, tube surgery, dog attack and repair on top of head. Past Anesthesia/Blood Transfusion Reactions: No Reported Reaction Past Psychological History: Depression Smoking Status: Current every day smoker Past Alcohol Use History: Daily, Heavy Past Drug Use History: Marijuana - Past Family History Mother History Unknown: Yes Father History Unknown: Yes General Exam - General Exam Comments Initial Comments: Physical Exam GENERAL: Patient is well-developed and well-nourished. Patient is nontoxic and well-hydrated and is in no distress. HENT: Normocephalic, Atraumatic. EYES: PERRL, EOMI PULMONARY: Unlabored respirations. CARDIOVASCULAR: RRR Warm and well perfused extremities ABDOMEN: Non-distended, no guarding SKIN: No rashes or bruising : Deferred NEUROLOGIC: Alert and oriented Normal speech Normal gait MUSCULOSKELETAL: Moving all extremities with no apparent injury PSYCHIATRIC: No SI/HI Limitations: no limitations Course Vital Signs 09/11/21 09/11/21 16:05 18:24 Temperature 98.6 F Pulse Rate 117 H 79 Respiratory 18 18 Rate Blood Pressure 139/88 131/100 O2 Sat by Pulse 95 97 Oximetry Medical Decision Making - Medical Decision Making The patient was seen and evaluated history is obtained from the patient who complains of intermittent episodes of nausea vomiting and diarrhea that happening for the past couple of months. Labs revealed elevated AST ALT bili and lipase, computed tomography scan shows a large liver. Results were discussed with patient who states that he is an alcoholic. He states that he drinks vodka daily. Patient states he has detoxed before and was sober for a few months but thought that he could start drinking just a little bit of the time in now once again is 2. he is getting grossly intoxicated on daily basis. Discussed with patient that I suspect his alcoholism is contributing to his symptoms recommended cessation which patient was understanding of. At this point patient stable for discharge home. - Lab Data Result diagrams: 09/11/21 18:15 09/11/21 18:15 Lab Results 09/11/21 09/11/21 09/11/21 Range/Units 18:15 18:15 18:15 WBC 7.7 (3.8-10.6) k/uL RBC 4.75 (4.30-5.90) m/uL Hgb 18.4 H (13.0-17.5) gm/dL Hct 52.6 (39.0-53.0) % MCV 110.6 H (80.0-100.0) fL MCH 38.6 H (25.0-35.0) pg MCHC 34.9 (31.0-37.0) g/dL RDW 14.1 (11.5-15.5) % Plt Count 210 (150-450) k/uL MPV 8.4 Neutrophils % 74 % Lymphocytes % 18 % Monocytes % 6 % Eosinophils % 0 % Basophils % 0 % Neutrophils # 5.7 (1.3-7.7) k/uL Lymphocytes # 1.4 (1.0-4.8) k/uL Monocytes # 0.5 (0-1.0) k/uL Eosinophils # 0.0 (0-0.7) k/uL Basophils # 0.0 (0-0.2) k/uL Manual Slide Review Performed Macrocytosis Marked A Sodium 137 (137-145) mmol/L Potassium 3.3 L (3.5-5.1) mmol/L Chloride 96 L (98-107) mmol/L Carbon Dioxide 22 (22-30) mmol/L Anion Gap 19 mmol/L BUN 5 L (9-20) mg/dL Creatinine 0.60 L (0.66-1.25) mg/dL Est GFR (CKD-EPI)AfAm >90 (>60 ml/min/1.73 sqM) Est GFR (CKD-EPI)NonAf >90 (>60 ml/min/1.73 sqM) Glucose 163 H (74-99) mg/dL Plasma Lactic Acid [place] 4.3 H* (0.7-2.0) mmol/L Calcium 9.8 (8.4-10.2) mg/dL Total Bilirubin 2.2 H (0.2-1.3) mg/dL AST 182 H (17-59) U/L ALT 63 H (4-49) U/L Alkaline Phosphatase 96 (38-126) U/L C-Reactive Protein <0.5 (<1.0) mg/dL Total Protein 8.8 H (6.3-8.2) g/dL Albumin 5.1 H (3.5-5.0) g/dL Lipase 507 H (23-300) U/L Urine Color Urine Appearance (Clear) Urine pH (5.0-8.0) Ur Specific [place] (1.001-1.035) Urine Protein (Negative) Urine Glucose (UA) (Negative) Urine Ketones (Negative) Urine Blood (Negative) Urine Nitrite (Negative) Urine Bilirubin (Negative) Urine Urobilinogen (<2.0) mg/dL Ur Leukocyte Esterase (Negative) 09/11/21 Range/Units 18:48 WBC (3.8-10.6) k/uL RBC (4.30-5.90) m/uL Hgb (13.0-17.5) gm/dL Hct (39.0-53.0) % MCV (80.0-100.0) fL MCH (25.0-35.0) pg MCHC (31.0-37.0) g/dL RDW (11.5-15.5) % Plt Count (150-450) k/uL MPV Neutrophils % % Lymphocytes % % Monocytes % % Eosinophils % % Basophils % % Neutrophils # (1.3-7.7) k/uL Lymphocytes # (1.0-4.8) k/uL Monocytes # (0-1.0) k/uL Eosinophils # (0-0.7) k/uL Basophils # (0-0.2) k/uL Manual Slide Review Macrocytosis Sodium (137-145) mmol/L Potassium (3.5-5.1) mmol/L Chloride (98-107) mmol/L Carbon Dioxide (22-30) mmol/L Anion Gap mmol/L BUN (9-20) mg/dL Creatinine (0.66-1.25) mg/dL Est GFR (CKD-EPI)AfAm (>60 ml/min/1.73 sqM) Est GFR (CKD-EPI)NonAf (>60 ml/min/1.73 sqM) Glucose (74-99) mg/dL Plasma Lactic Acid [place] (0.7-2.0) mmol/L Calcium (8.4-10.2) mg/dL Total Bilirubin (0.2-1.3) mg/dL AST (17-59) U/L ALT (4-49) U/L Alkaline Phosphatase (38-126) U/L C-Reactive Protein (<1.0) mg/dL Total Protein (6.3-8.2) g/dL Albumin (3.5-5.0) g/dL Lipase (23-300) U/L Urine Color Light Yellow Urine Appearance Clear (Clear) Urine pH 7.0 (5.0-8.0) Ur Specific [place] 1.002 (1.001-1.035) Urine Protein Negative (Negative) Urine Glucose (UA) Negative (Negative) Urine Ketones Negative (Negative) Urine Blood Negative (Negative) Urine Nitrite Negative (Negative) Urine Bilirubin Negative (Negative) Urine Urobilinogen <2.0 (<2.0) mg/dL Ur Leukocyte Esterase Negative (Negative) Disposition Clinical Impression: Alcoholic liver disease, Alcoholic pancreatitis Disposition: HOME SELF-CARE Condition: Stable Additional Instructions: You need to quit drinking Is patient prescribed a controlled substance at d/c from ED?: No Referrals: None,Stated [Primary Care Provider] - 1-2 days
[2021-09-11 18:41] LABS: Basophils % (A) 0 %; Eosinophils % (A) 0 %; HCT 52.6 % (39.0-53.0); HGB 18.4 gm/dL (13.0-17.5); Lymphocytes # (A) 1.4 k/uL (1.0-4.8); Lymphocytes % (A) 18 %; MCH 38.6 pg (25.0-35.0); MCHC 34.9 g/dL (31.0-37.0); MCV 110.6 fL (80.0-100.0); Macrocytosis Marked; Mean Platelet Volume 8.4; Monocytes # (A) 0.5 k/uL (0-1.0); Monocytes % (A) 6 %; Neutrophils # (A) 5.7 k/uL (1.3-7.7); Neutrophils % (A) 74 %; Platelet Count 210 k/uL (150-450); RBC 4.75 m/uL (4.30-5.90); RDW 14.1 % (11.5-15.5); WBC 7.7 k/uL (3.8-10.6)
[2021-09-11 18:52] LABS: ALT 63 U/L (4-49); AST 182 U/L (17-59); African American GFR (CKD) >90 (>60 ml/min/1.73 sqM); Albumin 5.1 g/dL (3.5-5.0); Alkaline Phosphatase 96 U/L (38-126); Anion Gap 19 mmol/L; Blood Urea Nitrogen 5 mg/dL (9-20); C Reactive Protein <0.5 mg/dL (<1.0); Calcium 9.8 mg/dL (8.4-10.2); Carbon Dioxide 22 mmol/L (22-30); Chloride 96 mmol/L (98-107); Glucose 163 mg/dL (74-99); Lipase 507 U/L (23-300); Non-African American GFR(CKD) >90 (>60 ml/min/1.73 sqM); Potassium 3.3 mmol/L (3.5-5.1); Sodium 137 mmol/L (137-145); Total Bilirubin 2.2 mg/dL (0.2-1.3); Total Protein 8.8 g/dL (6.3-8.2)
[2021-09-11 19:05] LABS: Appearance,Urine Clear (Clear); Bilirubin,Urine Negative (Negative); Blood,Urine Negative (Negative); Color,Urine Light Yellow; Glucose,Urine (UA) Negative (Negative); Ketones,Urine Negative (Negative); Leukocyte Esterase,Urine Negative (Negative); Nitrite,Urine Negative (Negative); Protein,Urine Negative (Negative); Specific Gravity,Urine 1.002 (1.001-1.035); Urobilinogen,Urine <2.0 mg/dL (<2.0)
--- NOTE | 2021-09-11 19:12 | CT ---
EXAMINATION TYPE: CT abdomen pelvis w con DATE OF EXAM: 09/11/2021 COMPARISON: 12/29/2019 HISTORY: Abdominal pain, nausea, vomiting and diarrhea. CT DLP: 721.4 mGycm Automated exposure control for dose reduction was used. CONTRAST: Performed with IV Contrast, patient injected with 100ml mL of Isovue 300. Images obtained from the diaphragm to the floor the pelvis with IV contrast Lung bases are clear. There is no pleural effusion. Heart size is normal. There is no pericardial eff usion. There is fatty infiltration of the liver. Spleen is intact. Stomach is intact. There is no pancreatic mass. Gallbladder appears normal. There is no adrenal mass. Kidneys show satisfactory contrast opacification. There is no hydronephrosi s. Ureters are not dilated. There is no retroperitoneal adenopathy. The bladder distends smoothly. Th ere is no inguinal hernia. Appendix not clearly seen. No sign of thickened appendix. There is no mesenteric edema. There is no ascites or free air. There is no evidence of a bowel obstru ction. There is no sign of thickened appendix. Terminal ileum appears normal. Liver measures 23 cm in length. The lumbar vertebrae have normal alignment. There is no compression fracture. Bony pelvis is intact. The hip joints are intact. IMPRESSION: Fatty infiltration of the liver increased compared to the old exam. No acute abnormality in the abdom en and pelvis. Enlarged liver.
[2021-09-11 20:32] VITALS: BP 148/76; PULSE 76; RESP 16
== END 2021-09-11 20:33 | disposition home or self-care (01) ==
LOC: EC 15:59
DX: K85.20 Alcohol induced acute pancreatitis without necrosis or infection (principal); K70.9 Alcoholic liver disease, unspecified; F32.A Depression, unspecified; F17.200 Nicotine dependence, unspecified, uncomplicated; F12.90 Cannabis use, unspecified, uncomplicated; Z88.0 Allergy status to penicillin
CPT/HCPCS: 99284; 96360; 36415; 80053; 83605; 83690; 85025; 86140; 81003; 74177; Q9967

== ENCOUNTER 2022-04-25 14:17 | Inpatient (IN) | payer OTHER ==
[2022-04-25] MEDS ORDERED: ONDANSETRON 4 MG/2 ML VIAL IVP STA (16:13)
[2022-04-25 16:18] LABS: Basophils # (A) 0.1 k/uL (0-0.2); Basophils % (A) 0 %; Eosinophils # (A) 0.1 k/uL (0-0.7); Eosinophils % (A) 0 %; HCT 51.2 % (39.0-53.0); HGB 18.4 gm/dL (13.0-17.5); Lymphocytes # (A) 0.6 k/uL (1.0-4.8); Lymphocytes % (A) 4 %; MCH 37.6 pg (25.0-35.0); MCHC 35.9 g/dL (31.0-37.0); MCV 104.6 fL (80.0-100.0); Macrocytosis Slight; Mean Platelet Volume 8.7; Monocytes # (A) 0.7 k/uL (0-1.0); Monocytes % (A) 5 %; Neutrophils # (A) 11.4 k/uL (1.3-7.7); Neutrophils % (A) 89 %; Platelet Count 190 k/uL (150-450); RDW 14.1 % (11.5-15.5); WBC 12.9 k/uL (3.8-10.6)
[2022-04-25 16:28] LABS: ALT 115 U/L (4-49); AST 387 U/L (17-59); African American GFR (CKD) >90 (>60 ml/min/1.73 sqM); Albumin 5.2 g/dL (3.5-5.0); Alcohol 60 mg/dL; Alkaline Phosphatase 144 U/L (38-126); Amylase 83 U/L (30-110); Anion Gap 23 mmol/L; Blood Urea Nitrogen 8 mg/dL (9-20); Calcium 9.3 mg/dL (8.4-10.2); Carbon Dioxide 18 mmol/L (22-30); Chloride 98 mmol/L (98-107); Glucose 78 mg/dL (74-99); Lipase 220 U/L (23-300); Non-African American GFR(CKD) >90 (>60 ml/min/1.73 sqM); Potassium 3.7 mmol/L (3.5-5.1); Sodium 139 mmol/L (137-145); Total Bilirubin 2.8 mg/dL (0.2-1.3); Total Protein 8.4 g/dL (6.3-8.2)
--- NOTE | 2022-04-25 16:30 | ED ---
Nausea/Vomiting/Diarrhea HPI - General Chief complaint: Nausea/Vomiting/Diarrhea Stated complaint: Racing Heart Time Seen by Provider: 04/25/22 16:15 Source: patient, family Mode of arrival: ambulatory Limitations: no limitations - History of Present Illness Initial comments: 36-year-old male with past medical history of marijuana use, alcohol use who p resents to the emergency department with nausea, vomiting and generalized abdominal pain. He states the symptoms started around 12 PM this afternoon. He woke from sleep and had body shakes, palpitations, nausea. He's had 15 episodes of bilious vomiting. He denies fevers. No sick contacts. Admits to generalized abdominal pain. Also has had some diarrhea. No history of abdominal surgeries. Does admit to alcohol use. States that he'll drink a pint twice a week. Last drink was yesterday. He denies chest pain. No Tylenol use. No other alleviating, precipitating or modifying factors - Related Data Home Medications Medication Instructions Recorded Confirmed No Known Home Medications 09/11/21 04/25/22 Allergies Allergy/AdvReac Type Severity Reaction Status Date / Time Penicillins Allergy Swelling Verified 04/25/22 17:51 Review of Systems ROS Statement: Those systems with pertinent positive or pertinent negative responses have been documented in the HPI. ROS Other: All systems not noted in ROS Statement are negative. Past Medical History Past Medical History: No Reported History History of Any Multi-Drug Resistant Organisms: None Reported Past Surgical History: Ear Surgery Additional Past Surgical History / Comment(s): jaw surgery, tube surgery, dog attack and repair on top of head. Past Anesthesia/Blood Transfusion Reactions: No Reported Reaction Past Psychological History: Depression Smoking Status: Current every day smoker Past Alcohol Use History: Occasional Past Drug Use History: Marijuana - Past Family History Mother History Unknown: Yes Father History Unknown: Yes General Exam Limitations: no limitations General appearance: alert, in distress, other (Tremulous) Head exam: Present: atraumatic, normocephalic, normal inspection Eye exam: Present: normal appearance, PERRL, EOMI. Absent: scleral icterus, conjunctival injection, periorbital swelling ENT exam: Present: normal exam, mucous membranes moist Neck exam: Present: normal inspection. Absent: tenderness, meningismus, lymphadenopathy Respiratory exam: Present: normal lung sounds bilaterally. Absent: respiratory distress, wheezes, rales, rhonchi, stridor Cardiovascular Exam: Present: tachycardia, normal heart sounds. Absent: systolic murmur, diastolic murmur, rubs, gallop, clicks GI/Abdominal exam: Present: soft, tenderness (generalized), normal bowel sounds. Absent: distended, guarding, rebound, rigid Extremities exam: Present: normal inspection, full ROM, normal capillary refill. Absent: tenderness, pedal edema, joint swelling, calf tenderness Back exam: Present: normal inspection Neurological exam: Present: alert, oriented X3, CN II-XII intact Psychiatric exam: Present: normal affect, normal mood Skin exam: Present: warm, dry, intact, normal color. Absent: rash Course Vital Signs 04/25/22 04/25/22 04/25/22 15:48 19:15 20:20 Temperature 97.8 F Pulse Rate 120 H 107 H 112 H Respiratory 20 16 18 Rate Blood Pressure 154/97 140/81 153/75 O2 Sat by Pulse 96 96 95 Oximetry 04/25/22 23:27 Temperature Pulse Rate 106 H Respiratory Rate Blood Pressure O2 Sat by Pulse Oximetry Medical Decision Making - Medical Decision Making On arrival patient was placed into room 8. A thorough history and physical exam was performed. Laboratory studies are conducted. Patient was given 2 L bolus of normal saline and 4 mg of Zofran. Laboratory studies are reviewed and demonstrate market elevation the patient's AST, ALT and lactic acid. 3+ ketones in the urine. Alcohol is 60. CT of abdomen and pelvis demonstrates a heterogeneous liver however no acute process. Patient is reevaluated and continues to have a heart rate of 1:30. Recommended admission for fluid hydration, nausea medication and pain control needed. Spoke with Dr. Churchill who agreed to admission. - Lab Data Result diagrams: 04/25/22 15:59 04/25/22 15:59 Lab Results 04/25/22 04/25/22 04/25/22 Range/Units 15:59 15:59 15:59 WBC 12.9 H (3.8-10.6) k/uL RBC 4.90 (4.30-5.90) m/uL Hgb 18.4 H (13.0-17.5) gm/dL Hct 51.2 (39.0-53.0) % MCV 104.6 H (80.0-100.0) fL MCH 37.6 H (25.0-35.0) pg MCHC 35.9 (31.0-37.0) g/dL RDW 14.1 (11.5-15.5) % Plt Count 190 (150-450) k/uL MPV 8.7 Neutrophils % 89 % Lymphocytes % 4 % Monocytes % 5 % Eosinophils % 0 % Basophils % 0 % Neutrophils # 11.4 H (1.3-7.7) k/uL Lymphocytes # 0.6 L (1.0-4.8) k/uL Monocytes # 0.7 (0-1.0) k/uL Eosinophils # 0.1 (0-0.7) k/uL Basophils # 0.1 (0-0.2) k/uL Macrocytosis Slight Sodium 139 (137-145) mmol/L Potassium 3.7 (3.5-5.1) mmol/L Chloride 98 (98-107) mmol/L Carbon Dioxide 18 L (22-30) mmol/L Anion Gap 23 mmol/L BUN 8 L (9-20) mg/dL Creatinine 0.65 L (0.66-1.25) mg/dL Est GFR (CKD-EPI)AfAm >90 (>60 ml/min/1.73 sqM) Est GFR (CKD-EPI)NonAf >90 (>60 ml/min/1.73 sqM) Glucose 78 (74-99) mg/dL Lactic Ac Sepsis Rflx Plasma Lactic Acid Destin (0.7-2.0) mmol/L Calcium 9.3 (8.4-10.2) mg/dL Total Bilirubin 2.8 H (0.2-1.3) mg/dL AST 387 H (17-59) U/L ALT 115 H (4-49) U/L Alkaline Phosphatase 144 H (38-126) U/L Troponin I (0.000-0.034) ng/mL Total Protein 8.4 H (6.3-8.2) g/dL Albumin 5.2 H (3.5-5.0) g/dL Amylase 83 (30-110) U/L Lipase 220 (23-300) U/L Urine Color Light Yellow Urine Appearance Clear (Clear) Urine pH 5.5 (5.0-8.0) Ur Specific Blanco 1.030 (1.001-1.035) Urine Protein Negative (Negative) Urine Glucose (UA) Negative (Negative) Urine Ketones 3+ H (Negative) Urine Blood Negative (Negative) Urine Nitrite Negative (Negative) Urine Bilirubin Negative (Negative) Urine Urobilinogen <2.0 (<2.0) mg/dL Ur Leukocyte Esterase Negative (Negative) Serum Alcohol 60 mg/dL Coronavirus (PCR) (Not Detectd) 04/25/22 04/25/22 04/25/22 Range/Units 15:59 15:59 15:59 WBC (3.8-10.6) k/uL RBC (4.30-5.90) m/uL Hgb (13.0-17.5) gm/dL Hct (39.0-53.0) % MCV (80.0-100.0) fL MCH (25.0-35.0) pg MCHC (31.0-37.0) g/dL RDW (11.5-15.5) % Plt Count (150-450) k/uL MPV Neutrophils % % Lymphocytes % % Monocytes % % Eosinophils % % Basophils % % Neutrophils # (1.3-7.7) k/uL Lymphocytes # (1.0-4.8) k/uL Monocytes # (0-1.0) k/uL Eosinophils # (0-0.7) k/uL Basophils # (0-0.2) k/uL Macrocytosis Sodium (137-145) mmol/L Potassium (3.5-5.1) mmol/L Chloride (98-107) mmol/L Carbon Dioxide (22-30) mmol/L Anion Gap mmol/L BUN (9-20) mg/dL Creatinine (0.66-1.25) mg/dL Est GFR (CKD-EPI)AfAm (>60 ml/min/1.73 sqM) Est GFR (CKD-EPI)NonAf (>60 ml/min/1.73 sqM) Glucose (74-99) mg/dL Lactic Ac Sepsis Rflx Plasma Lactic Acid Destin 5.9 H* (0.7-2.0) mmol/L Calcium (8.4-10.2) mg/dL Total Bilirubin (0.2-1.3) mg/dL AST (17-59) U/L ALT (4-49) U/L Alkaline Phosphatase (38-126) U/L Troponin I <0.012 (0.000-0.034) ng/mL Total Protein (6.3-8.2) g/dL Albumin (3.5-5.0) g/dL Amylase (30-110) U/L Lipase (23-300) U/L Urine Color Urine Appearance (Clear) Urine pH (5.0-8.0) Ur Specific Blanco (1.001-1.035) Urine Protein (Negative) Urine Glucose (UA) (Negative) Urine Ketones (Negative) Urine Blood (Negative) Urine Nitrite (Negative) Urine Bilirubin (Negative) Urine Urobilinogen (<2.0) mg/dL Ur Leukocyte Esterase (Negative) Serum Alcohol mg/dL Coronavirus (PCR) Not Detected (Not Detectd) 04/25/22 Range/Units 16:34 WBC (3.8-10.6) k/uL RBC (4.30-5.90) m/uL Hgb (13.0-17.5) gm/dL Hct (39.0-53.0) % MCV (80.0-100.0) fL MCH (25.0-35.0) pg MCHC (31.0-37.0) g/dL RDW (11.5-15.5) % Plt Count (150-450) k/uL MPV Neutrophils % % Lymphocytes % % Monocytes % % Eosinophils % % Basophils % % Neutrophils # (1.3-7.7) k/uL Lymphocytes # (1.0-4.8) k/uL Monocytes # (0-1.0) k/uL Eosinophils # (0-0.7) k/uL Basophils # (0-0.2) k/uL Macrocytosis Sodium (137-145) mmol/L Potassium (3.5-5.1) mmol/L Chloride (98-107) mmol/L Carbon Dioxide (22-30) mmol/L Anion Gap mmol/L BUN (9-20) mg/dL Creatinine (0.66-1.25) mg/dL Est GFR (CKD-EPI)AfAm (>60 ml/min/1.73 sqM) Est GFR (CKD-EPI)NonAf (>60 ml/min/1.73 sqM) Glucose (74-99) mg/dL Lactic Ac Sepsis Rflx Y Plasma Lactic Acid Destin (0.7-2.0) mmol/L Calcium (8.4-10.2) mg/dL Total Bilirubin (0.2-1.3) mg/dL AST (17-59) U/L ALT (4-49) U/L Alkaline Phosphatase (38-126) U/L Troponin I (0.000-0.034) ng/mL Total Protein (6.3-8.2) g/dL Albumin (3.5-5.0) g/dL Amylase (30-110) U/L Lipase (23-300) U/L Urine Color Urine Appearance (Clear) Urine pH (5.0-8.0) Ur Specific Blanco (1.001-1.035) Urine Protein (Negative) Urine Glucose (UA) (Negative) Urine Ketones (Negative) Urine Blood (Negative) Urine Nitrite (Negative) Urine Bilirubin (Negative) Urine Urobilinogen (<2.0) mg/dL Ur Leukocyte Esterase (Negative) Serum Alcohol mg/dL Coronavirus (PCR) (Not Detectd) - EKG Data EKG Comments: EKG demonstrates sinus tachycardia with a rate of 129. ND interval 136. QRS 81. QTC of 410. No acute ST segment elevations or depressions Disposition Clinical Impression: Vomiting, Alcohol abuse, Alcohol use disorder, severe, dependence, Tachycardia, Lactic acidosis Disposition: ADMITTED IP TO THIS HOSP Condition: Serious Is patient prescribed a controlled substance at d/c from ED?: No Time of Disposition: 18:48 Decision to Admit Reason: Admit from EC Decision Date: 04/25/22 Decision Time: 18:48
[2022-04-25] MEDS ORDERED: SODIUM CHLORIDE 0.9% 1,000 ML IV ONE (16:52)
[2022-04-25] MEDS: SODIUM CHLORIDE 0.9% 1,000 ML IV ONE (16:59)
--- NOTE | 2022-04-25 17:28 | CT ---
EXAMINATION TYPE: CT abdomen pelvis w con CT DLP: 818.8 mGycm, Automated exposure control for dose reduction was used. DATE OF EXAM: 04/25/2022 5:17 PM COMPARISON: CLINICAL INDICATION:Male, 36 years old with history of abd pain; Abdominal pain, N/V and shakes TECHNIQUE: Axial CT of the abdomen and pelvis. Sagittal and coronal reformats were created on a [employer] workstation. Contrast used:100 mL of Isovue 300 with IV Contrast, Oral contrast used: without Oral Contrast FINDINGS: LOWER CHEST: Unremarkable ABDOMEN LIVER: Diffusely hypoattenuating parenchyma. GALLBLADDER AND BILE DUCTS: The gallbladder is distended. PANCREAS: Unremarkable. SPLEEN: Scattered calcified granulomas. ADRENAL GLANDS: Unremarkable. KIDNEYS AND URETERS: No evidence of hydronephrosis or renal calculus. The ureters are unremarkable. PELVIS BLADDER: Unremarkable REPRODUCTIVE: Unremarkable. ABDOMEN & PELVIS STOMACH AND BOWEL: No evidence of bowel obstruction. Predominantly decompressed colon with submucosa l fat deposition. Appendix is normal. PERITONEUM: No evidence of pneumoperitoneum or free fluid. VASCULATURE: No evidence of aortic aneurysm. MUSCULOSKELETAL: No acute osseous abnormalities LYMPH NODES: No gross evidence for lymphadenopathy. SOFT TISSUE/ABDOMINAL WALL: Fat-containing inguinal hernia on the right. Fat-containing umbilical her deb. IMPRESSION: 1. No evidence for acute intra-abdominal process. 2. Marked Hepatic steatosis.
[2022-04-25 18:39] LABS: Appearance,Urine Clear (Clear); Bilirubin,Urine Negative (Negative); Blood,Urine Negative (Negative); Color,Urine Light Yellow; Glucose,Urine (UA) Negative (Negative); Ketones,Urine 3+ (Negative); Leukocyte Esterase,Urine Negative (Negative); Nitrite,Urine Negative (Negative); PH, Urine 5.5 (5.0-8.0); Protein,Urine Negative (Negative); Urobilinogen,Urine <2.0 mg/dL (<2.0)
[2022-04-25] MEDS ORDERED: NALOXONE 0.4 MG/ML 1 ML VIAL IV PRN (18:49)
[2022-04-25] MEDS ORDERED: THIAMINE 100 MG/ML 2 ML VIAL IM STA (18:53)
[2022-04-25] MEDS ORDERED: LORazepam 1 MG TAB PO PRN ×3 (18:53)
[2022-04-25] MEDS ORDERED: LORazepam 0.5 MG TAB PO PRN (18:53)
[2022-04-25] MEDS ORDERED: ONDANSETRON 4 MG/2 ML VIAL IVP PRN (18:53)
[2022-04-25] MEDS: SODIUM CHLORIDE 0.9% 1,000 ML IV SCH (19:03)
[2022-04-26] MEDS: SODIUM CHLORIDE 0.9% 1,000 ML IV SCH ×3 (08:06→15:21)
[2022-04-26] MEDS ORDERED: THIAMINE 100 MG TAB PO SCH (09:00)
[2022-04-26 09:17] LABS: Basophils # (A) 0.04 X 10*3/uL (0.00-0.10); Basophils % (A) 0.6 %; Eosinophils # (A) 0.02 X 10*3/uL (0.04-0.35); Eosinophils % (A) 0.3 %; HCT 41.1 % (39.6-50.0); HGB 14.9 g/dL (13.0-17.0); Immature Grans, Automated 0.4 %; Lymphocytes # (A) 1.15 X 10*3/uL (0.90-5.00); Lymphocytes % (A) 17.1 %; MCH 37.5 pg (27.0-32.0); MCHC 36.3 g/dL (32.0-37.0); MCV 103.5 fL (80.0-97.0); Mean Platelet Volume 10.1 fL (9.5-12.2); Monocytes # (A) 0.68 X 10*3/uL (0.20-1.00); Monocytes % (A) 10.1 %; NRBC Per 100 WBC 0 /100 WBCS (0.0-0.0); Neutrophils # (A) 4.79 X 10*3/uL (1.80-7.70); Neutrophils % (A) 71.5 %; Platelet Count 149 X 10*3/uL (140-440); RBC 3.97 X 10*6/uL (4.40-5.60); RDW 14.4 % (11.5-14.5); WBC 6.71 X 10*3/uL (4.50-10.00)
[2022-04-26 10:04] LABS: African American GFR (CKD) 140.7 (60.0-200.0); Anion Gap 12.9 mmol/L (10.00-18.00); BUN/Creat Ratio 9.29 Ratio (12.00-20.00); Blood Urea Nitrogen 6.5 mg/dL (9.0-27.0); Calcium 7.9 mg/dL (8.7-10.3); Carbon Dioxide 24.1 mmol/L (20.0-27.5); Non-African American GFR(CKD) 121.4 (60.0-200.0); Potassium 3.8 mmol/L (3.5-5.5)
--- NOTE | 2022-04-26 11:11 | P.CONS ---
History of Present Illness - Reason for Consult Consult date: 04/26/22 Elevated liver enzymes Requesting physician: Litzy Lyle - Chief Complaint Nausea and vomiting - History of Present Illness This is a 36-year-old male with a past medical history including alcohol abuse presented to the emergency department with complaints of intractable nausea and vomiting. States he vomited greater than 20 times yesterday, bilious emesis. Denies any blood. Also states he had some abdominal pain which was mid abdomen associated with the vomiting. He states he had a history of daily heavy alcohol use for 10 years which he states he has cut back and now drinks 2 pints to a fifth a week. Denies any previous knowledge or history of liver disease or known elevated liver enzymes. However looking back in the patient's chart he has had elevated LFTs dating back as far as 2017. He denies any recent sick contacts influenza A and B were negative. He had a CT of the abdomen and pelvis that did show diffuse hypoattenuating parenchyma, hepatic steatosis. No acute findings. He states the nausea and vomiting as well as abdominal pain have imp roved. He's not had any further nausea vomiting since yesterday.he is on a heart healthy diet and tolerating it well. Admitting Labs: WBC 12.9 hemoglobin 18 hematocrit 51 platelet count 190,000 sodium 139 potassium 3.7 BUN 8 creatinine 0.65 glucose 78 total bilirubin 2.8 AST 387 and T1 15 alkaline phosphatase 144, amylase 83, lipase 220 serum alcohol 60 Review of Systems REVIEW OF SYSTEMS: CARDIOPULMONARY: No chest pain or shortness of breath. Gastrointestinal: Patient had mid abdomen pain, now resolved. Nausea and vomiting 1-2 days, now resolved. No hematemesis, coffee-ground emesis. No rectal bleeding, or melena. GENITOURINARY: No dysuria or hematuria. MUSCULOSKELETAL: Reports normal range of motion., Joint pain. SKIN: No rashes. No jaundice. ENDOCRINE: No chills, fevers. No excessive weight gain or loss. No polydipsia or polyuria. PSYCHIATRIC: Unremarkable. NEUROLOGY: No change in mental status. Denies dizziness, headache. ENT: Vision unremarkable. CONSTITUTIONAL: No recent weight loss. No fever, chills, night sweats. Past Medical History Past Medical History: No Reported History History of Any Multi-Drug Resistant Organisms: None Reported Past Surgical History: Ear Surgery Additional Past Surgical History / Comment(s): jaw surgery, tube surgery, dog attack and repair on top of head. Past Anesthesia/Blood Transfusion Reactions: No Reported Reaction Past Psychological History: Depression Smoking Status: Current every day smoker Past Alcohol Use History: Occasional Past Drug Use History: Marijuana - Past Family History Mother History Unknown: Yes Father History Unknown: Yes Medications and Allergies Home Medications Medication Instructions Recorded Confirmed Type No Known Home Medications 09/11/21 04/25/22 History Allergies Allergy/AdvReac Type Severity Reaction Status Date / Time Penicillins Allergy Swelling Verified 04/25/22 17:51 Physical Exam Vitals: Vital Signs Temp Pulse Pulse Resp BP BP Pulse Ox 04/26/22 08:00 77 16 128/78 99 04/25/22 23:27 106 H 04/25/22 20:20 112 H 18 153/75 95 04/25/22 19:15 107 H 16 140/81 96 04/25/22 15:48 97.8 F 120 H 20 154/97 96 Intake and Output 04/25/22 04/26/22 04/26/22 22:59 06:59 14:59 Other: Weight 68.039 kg 68.039 kg General appearance: The patient is alert, oriented, appears in no acute distress. HET: Head is normocephalic and atraumatic. Conjunctiva pink. Sclera anicteric. Neck: Supple without lymphadenopathy. Trachea midline. Heart: S1 S2. Regular rate and rhythm. Lungs: Clear to auscultation. Abdomen: Soft, nontender, hepatomegaly, nondistended with bowel sounds. No guarding or rigidity. Skin: No rashes. No jaundice. Extremities: Normal skin color and turgor. No pedal edema. Neurological: No focal deficits. Alert and oriented x3. Results CBC & Chem 7: 04/26/22 04:23 04/26/22 04:23 Labs: Abnormal Lab Results - Last 24 Hours (Table) 04/25/22 04/25/22 04/25/22 Range/Units 15:59 15:59 15:59 WBC 12.9 H (3.8-10.6) k/uL RBC (4.40-5.60) X 10*6/uL Hgb 18.4 H (13.0-17.5) gm/dL MCV 104.6 H (80.0-100.0) fL MCH 37.6 H (25.0-35.0) pg Neutrophils # 11.4 H (1.3-7.7) k/uL Lymphocytes # 0.6 L (1.0-4.8) k/uL Eosinophils # (0.04-0.35) X 10*3/uL Carbon Dioxide 18 L (22-30) mmol/L BUN 8 L (9-20) mg/dL Creatinine 0.65 L (0.66-1.25) mg/dL Plasma Lactic Acid Destin (0.7-2.0) mmol/L Total Bilirubin 2.8 H (0.2-1.3) mg/dL AST 387 H (17-59) U/L ALT 115 H (4-49) U/L Alkaline Phosphatase 144 H (38-126) U/L Total Protein 8.4 H (6.3-8.2) g/dL Albumin 5.2 H (3.5-5.0) g/dL Urine Ketones 3+ H (Negative) 04/25/22 04/25/22 04/26/22 Range/Units 15:59 18:54 04:23 WBC (3.8-10.6) k/uL RBC 3.97 L (4.40-5.60) X 10*6/uL Hgb (13.0-17.5) gm/dL MCV 103.5 H (80.0-100.0) fL MCH 37.5 H (25.0-35.0) pg Neutrophils # (1.3-7.7) k/uL Lymphocytes # (1.0-4.8) k/uL Eosinophils # 0.02 L (0.04-0.35) X 10*3/uL Carbon Dioxide (22-30) mmol/L BUN (9-20) mg/dL Creatinine (0.66-1.25) mg/dL Plasma Lactic Acid Destin 5.9 H* 3.3 H* (0.7-2.0) mmol/L Total Bilirubin (0.2-1.3) mg/dL AST (17-59) U/L ALT (4-49) U/L Alkaline Phosphatase (38-126) U/L Total Protein (6.3-8.2) g/dL Albumin (3.5-5.0) g/dL Urine Ketones (Negative) CT scan - abdomen: report reviewed (No evidence for acute intra-abdominal process. Marked hepatic steatosis.) Assessment and Plan (1) Elevated LFTs Narrative/Plan: 36-year-old male with a significant history of alcohol abuse and dependence. States he was a very heavy drinker for 10 year duration daily, which he states he has recently cut back to 2 pints to 1/5 a week. However patient did come in with alcohol level of 60 on admission. He had come into the emergency departm ent for nausea and vomiting and abdominal pain. CT of the abdomen showed diffuse hypoattenuating parenchyma consistent with hepatocellular disease, likely related to underlying alcohol abuse. Discussed with patient importance of alcohol abstinence. Need for follow-up with gastroenterology. Hepatitis panel ordered. Awaiting repeat labs. Current Visit: Yes Status: Acute Code(s): R79.89 - OTHER SPECIFIED ABNORMAL FINDINGS OF BLOOD CHEMISTRY SNOMED Code(s): 637898322 (2) Alcohol abuse Current Visit: Yes Status: Acute Code(s): F10.10 - ALCOHOL ABUSE, UNCOMPLICATED SNOMED Code(s): 04024474 (3) Vomiting Narrative/Plan: Resolved Current Visit: Yes Status: Acute Code(s): R11.10 - VOMITING, UNSPECIFIED SNOMED Code(s): 497404556 (4) Alcohol use disorder, severe, dependence Current Visit: Yes Status: Chronic Priority: High Code(s): F10.20 - ALCOHOL DEPENDENCE, UNCOMPLICATED SNOMED Code(s): 207459365 (5) Lactic acidosis Narrative/Plan: Improved Current Visit: Yes Status: Acute Code(s): E87.20 - ACIDOSIS, UNSPECIFIED SNOMED Code(s): 06482659 Plan: 1. Continue symptomatic and supportive care 2. Antiemetics as needed 3. Alcohol abstinence 4. Hepatitis panel ordered 5. Repeat LFTs ordered 6. Discussed with patient follow up outpatient with gastroenterology for continued surveillance. Patient agreeable. Thank you for this consultation, if labs continue to improve patient is cleared from gastroenterology for discharge with follow-up in 1-[address] Bret Murphy I agree with the dictator's note, documented as a scribe by Glo Mcgregor.
[2022-04-26] MEDS ORDERED: PANTOPRAZOLE 40 MG/10 ML VIAL IVP SCH (12:30)
--- NOTE | 2022-04-26 13:25 | HP ---
HISTORY AND PHYSICAL CHIEF COMPLAINT: Nausea and vomiting. HISTORY OF PRESENT ILLNESS: This 36-year-old gentleman with a past medical history of jaw surgery and other medical issues nausea and vomiting. The patient apparently drinks a pint of alcohol on and off. There is no history of any fever or rigors. No history of headache, loss of consciousness, or seizures. CT scan was reviewed. LFTs are elevated. Gastroenterology evaluation in progress. PAST MEDICAL HISTORY: Reviewed and include jaw surgery. HOME MEDICATIONS: None. ALLERGIES: Penicillin. FAMILY HISTORY: No history of heart disease or strokes in the family. SOCIAL HISTORY: Smoking alcohol as mentioned earlier. REVIEW OF SYSTEMS: 14-point review of systems is negative except as mentioned earlier. PHYSICAL EXAMINATION: VITAL SIGNS: Pulse is 77, blood pressure , respirations 16. HEENT: Oral mucosa dry. NECK: No jugular venous distension. No carotid bruit. CARDIOVASCULAR: S1, S2. RESPIRATION: Clear to auscultation. ABDOMEN: Soft, nontender. No mass palpable. LEGS: No edema. No swelling. NERVOUS SYSTEM: Nonfocal. SKIN: No ulcer. JOINTS: No active deforming arthropathy. LABORATORY DATA: Reviewed. ASSESSMENT: 1. Intractable nausea and vomiting, possible acute gastritis. 2. History of EtOH. 3. History of jaw surgery. 4. History of nicotine dependence. 5. Elevated LFTs, possibly alcoholic hepatitis. RECOMMENDATIONS AND DISCUSSION: In this 36-year-old gentleman, who presented with multiple complex medical issues, we will monitor the patient closely. Repeat labs. Otherwise, I would recommend closely follow with Gastroenterology, and guarded prognosis. Further recommendations to follow. See orders for further details. I will treat the patient with proton pump inhibitors. MMODL / IJN: [id number] /
[2022-04-26 14:12] LABS: Albumin/Globulin Ratio 1.82 (1.60-3.17); Bilirubin, Conjugated 1.11 mg/dL (0.20-0.40); Bilirubin,Unconjugated 1.39 mg/dL (0.20-1.00); Globulin 2.2 g/dL (1.6-3.3); Total Bilirubin 2.5 mg/dL (0.30-1.20); Total Protein 6.2 g/dL (6.2-8.2)
[2022-04-26 14:39] VITALS: BP 114/75; PULSE 69; RESP 18; TEMP 97.9
[2022-04-26 14:54] LABS: Hepatitis A Antibody IgM Nonreactive (Nonreactive); Hepatitis B Core IgM Nonreactive (Nonreactive); Hepatitis C IgG Antibody Nonreactive (Nonreactive)
[2022-04-26 16:08] LABS: Hepatitis B Surface Antigen Confirmed reactive (Nonreactive)
--- NOTE | 2022-04-30 15:36 | P.DS ---
Providers Date of admission: 04/25/22 18:51 Expected date of discharge: 04/26/22 Attending physician: Scottie Churchill Consults: 04/25/22 18:49 Consult Physician Urgent Consulting Provider: Shayy Murphy Consult Reason/Comments: elevated liver enzymes Do you want consulting provider notified?: Yes, Notify in am Primary care physician: Sarika Joseph [facility] Course: Final diagnosis Intractable nausea and vomiting, possible acute gastritis history of EtOH history of jaw surgery history of nicotine dependence Elevated LFTs, possibly alcoholic hepatitis Full code Discharge disposition Patient is being discharged in a stable condition with guarded prognosis to home. Patient will follow-up with Dr. Joseph in the outpatient setting upon discharge. Patient is to follow-up with GI Dr. Murphy as scheduled. Patient will continue on Protonix twice daily until GI follow-up. Total time taken is greater than 35 minutes. Hospital course This is a 36-year-old male who was recently admitted with nausea vomiting and acute alcohol intoxication was being closely monitored placed on CIWA protocol. Patient did not require any Ativan and was not actively withdrawing. Patient was seen and evaluated by GI and cleared for outpatient follow-up. Patient will continue on Protonix twice daily until GI follow-up and encouraged to slowly advance diet as tolerated and avoid all alcohol intake. Patient reports to feeling well and would like to go home. Currently no reports of chest pain, shortness of breath, or palpitations. Patient is afebrile. No reports of nause a or vomiting and patient is tolerating diet. Patient will be discharged home today. Guarded prognosis. Physical exam: Gen: This is a 36 rolled male awake, alert and oriented 3, well-developed, well-nourished. HEENT: Head is atraumatic, normocephalic. Pupils equal, round. Sclerae is anicteric. NECK: Supple. No JVD. No lymphadenopathy. No thyromegaly. LUNGS: Diminished breath sounds bilaterally with no wheezes or rhonchi. No intercostal retractions. HEART: S1, S2 are muffled ABDOMEN: Soft. obese Bowel sounds are present. No masses. No tenderness. EXTREMITIES: No pedal edema. No calf tenderness. NEUROLOGICAL: Patient is awake, alert and oriented x3. Cranial nerves 2 through 12 are grossly intact. Please refer to medication reconciliation sheet for a list of medications. The impression and plan of care has been dictated by Julia Garcia, Nurse Practitioner as directed. Dr. Tad MD I have performed a history and examination and MDM of this patient, discussed the same with the dictator, and agree with the dictator's assessment and plan as written ,documented as a scribe. Based on total visit time, I have performed more than 50% of the visit. Patient Condition at Discharge: Fair Plan - Discharge Summary New Discharge Prescriptions: New Thiamine [Vitamin B-1] 100 mg PO DAILY #30 tab Pantoprazole Sodium [Protonix] 40 mg PO BID #30 tab Discharge Medication List Pantoprazole Sodium [Protonix] 40 mg PO BID #30 tab 04/26/22 [Rx] Thiamine [Vitamin B-1] 100 mg PO DAILY #30 tab 04/26/22 [Rx] Follow up Appointment(s)/Referral(s): Shayy Murphy MD [STAFF PHYSICIAN] - 2 Weeks Sarika Joseph MD [Primary Care Provider] - 1-2 days Patient Instructions/Handouts: Alcohol Intoxication (ED) Discharge Disposition: HOME SELF-CARE
== END 2022-04-26 16:26 | disposition home or self-care (01) | DRG 433 ==
LOC: EC 14:17 → 5NMEDONC 18:51
PROVIDERS: ADMIT Internal Medicine; ATTEND Internal Medicine
DX: K70.10 Alcoholic hepatitis without ascites (principal); E87.20 Acidosis, unspecified; F10.20 Alcohol dependence, uncomplicated; F17.200 Nicotine dependence, unspecified, uncomplicated; K76.0 Fatty (change of) liver, not elsewhere classified; R00.0 Tachycardia, unspecified; Y90.3 Blood alcohol level of 60-79 mg/100 ml; Z71.41 Alcohol abuse counseling and surveillance of alcoholic
CPT/HCPCS: 36415; 74177; 80048; 80053; 80074; 80076; 80320; 81003; 82150; 83605; 83690; 84484; 85025; 87502; 87635; 93005; 96361; 96372; 96374; 96375; 96376; 99285

== ENCOUNTER 2023-03-15 01:36 | Observation (INO) | payer OTHER ==
[2023-03-15] MEDS ORDERED: SODIUM CHLORIDE 0.9% 1,000 ML IV STA (02:04)
[2023-03-15] MEDS ORDERED: KETOROLAC 15 MG/ML 1 ML VIAL IVP STA (02:04)
[2023-03-15] MEDS ORDERED: LIDOCAINE 5% PATCH TOPICAL STA (03:26)
[2023-03-15 03:29] LABS: ALT 53 U/L (4-49); AST 132 U/L (17-59); African American GFR (CKD) >90 (>60 ml/min/1.73 sqM); Albumin 5.4 g/dL (3.5-5.0); Alkaline Phosphatase 103 U/L (38-126); Anion Gap 18 mmol/L; Blood Urea Nitrogen 9 mg/dL (9-20); Carbon Dioxide 23 mmol/L (22-30); Chloride 106 mmol/L (98-107); Glucose 89 mg/dL (74-99); Lipase 99 U/L (23-300); Non-African American GFR(CKD) >90 (>60 ml/min/1.73 sqM); Potassium 4.8 mmol/L (3.5-5.1); Sodium 147 mmol/L (137-145); Total Bilirubin 1.9 mg/dL (0.2-1.3); Total Protein 9.8 g/dL (6.3-8.2)
[2023-03-15 03:39] LABS: Amorphous Sediment,Urine Rare /hpf; Appearance,Urine Cloudy (Clear); Bacteria,Urine Rare /hpf; Bilirubin,Urine Negative (Negative); Blood,Urine Moderate (Negative); Budding Yeast,Urine Rare /hpf; Color,Urine Yellow; Glucose,Urine (UA) Negative (Negative); Hyaline Casts,Urine 184 /lpf (0-2); Ketones,Urine Trace (Negative); Leukocyte Esterase,Urine Negative (Negative); Mucus,Urine Few /hpf; Nitrite,Urine Negative (Negative); Protein,Urine 3+ (Negative); RBC,Urine 24 /hpf (0-5); Specific Gravity,Urine 1.028 (1.001-1.035); Squamous Epithelial Cell,Urine 1 /hpf (0-4); WBC,Urine 4 /hpf (0-5)
[2023-03-15 03:41] LABS: Alcohol 462 mg/dL
[2023-03-15 03:58] LABS: Anisocytosis Slight; Basophils # (A) 0.1 k/uL (0-0.2); Basophils % (A) 1 %; Eosinophils % (A) 1 %; HGB 18.8 gm/dL (13.0-17.5); Lymphocytes % (A) 22 %; MCH 35.9 pg (25.0-35.0); MCV 105.6 fL (80.0-100.0); Macrocytosis Moderate; Mean Platelet Volume 8.1; Monocytes # (A) 0.9 k/uL (0-1.0); Monocytes % (A) 10 %; Neutrophils # (A) 5.9 k/uL (1.3-7.7); Neutrophils % (A) 66 %; Platelet Count 361 k/uL (150-450); RBC 5.24 m/uL (4.30-5.90); RDW 16.4 % (11.5-15.5)
[2023-03-15 04:01] LABS: HCT 55.3 % (39.0-53.0)
[2023-03-15] MEDS ORDERED: LORazepam 2 MG/ML INJ IV PRN ×3 (04:13)
[2023-03-15] MEDS ORDERED: LORazepam 0.5 MG TAB PO PRN (04:13)
[2023-03-15] MEDS ORDERED: LORazepam 1 MG TAB PO PRN ×3 (04:13)
[2023-03-15] MEDS ORDERED: THIAMINE 100 MG/ML 2 ML VIAL IM STA (04:13)
--- NOTE | 2023-03-15 04:16 | ED ---
Abdominal Pain HPI - General Chief Complaint: Abdominal Pain Stated Complaint: abd pain Time Seen by Provider: 03/15/23 02:03 Source: patient Mode of arrival: ambulatory Limitations: no limitations - History of Present Illness Initial Comments: Patient is 37-year-old male who presents to the emergency department for right sided pain. Patient has pain in his right upper side which started today. He does not have pain at rest only with moving and pressing on the area. He admits to moving recently carrying heavy boxes but wanted to make sure the pain is not due to his liver. Patient has history of elevated liver enzymes secondary to alcohol use. He drinks liquor daily. He is currently alert and oriented 4. He does smell like alcohol. Denies fever, chills, nausea, vomiting. Denies urinary symptoms, changes in bowel pattern. - Related Data Previous Rx's Medication Instructions Recorded Pantoprazole Sodium [Protonix] 40 mg PO BID #30 tab 04/26/22 Thiamine [Vitamin B-1] 100 mg PO DAILY #30 tab 04/26/22 Allergies Allergy/AdvReac Type Severity Reaction Status Date / Time Penicillins Allergy Swelling Verified 03/15/23 01:46 Review of Systems ROS Statement: Those systems with pertinent positive or pertinent negative responses have been documented in the HPI. ROS Other: All systems not noted in ROS Statement are negative. Past Medical History Past Medical History: No Reported History History of Any Multi-Drug Resistant Organisms: None Reported Past Surgical History: Ear Surgery Additional Past Surgical History / Comment(s): jaw surgery, tube surgery, dog attack and repair on top of head. Past Anesthesia/Blood Transfusion Reactions: No Reported Reaction Past Psychological History: Depression Smoking Status: Current every day smoker Past Alcohol Use History: Abuse, Daily, Heavy Past Drug Use History: Marijuana - Past Family History Mother History Unknown: Yes Father History Unknown: Yes General Exam Limitations: no limitations Eye exam: Present: normal appearance, PERRL, EOMI. Absent: scleral icterus, conjunctival injection, periorbital swelling Respiratory exam: Present: normal lung sounds bilaterally, chest wall tenderness (Right ribs overlying erythema, swelling, ecchymosis). Absent: respiratory distress, wheezes, rales, rhonchi, stridor Cardiovascular Exam: Present: regular rate, normal rhythm, normal heart sounds. Absent: systolic murmur, diastolic murmur, rubs, gallop, clicks GI/Abdominal exam: Present: soft, normal bowel sounds. Absent: distended, tenderness, guarding, rebound, rigid Neurological exam: Present: alert Psychiatric exam: Present: normal affect, normal mood Skin exam: Present: warm, dry, intact, normal color. Absent: rash Course Vital Signs 03/15/23 01:45 Temperature 98 F Pulse Rate 116 H Respiratory 20 Rate Blood Pressure 128/89 O2 Sat by Pulse 96 Oximetry Medical Decision Making - Medical Decision Making Was pt. sent in by a medical professional or institution (, REESE, EVENT PLANNER, urgent care, hospital, or longterm...) When possible be specific @ -No Did you speak to anyone other than the patient for history (EMS, parent, family, police, friend...)? What history was obtained from this source @ -No Did you review nursing and triage notes (agree or disagree)? Why? @ -I reviewed and agree with nursing and triage notes Were old charts reviewed (outside hosp., previous admission, EMS record, old EKG, old radiological studies, urgent care reports/EKG's, longterm records)? Report findings @ -No old charts were reviewed Differential Diagnosis (chest pain, altered mental status, abdominal pain women, abdominal pain men, vaginal bleeding, weakness, fever, dyspnea, syncope, headache, dizziness, GI bleed, back pain, seizure, CVA, palpatations, mental health)? @ Differential Abdominal Pain Men: Muscle strain, Appendicitis, cholecystitis, diverticulosis, ischemic bowel, pancreatitis, hepatitis, UTI, gastroenteritis, AAA, incarcerated hernia, bowel o bstruction, constipation, inflammatory bowel, hepatitis, peptic ulcer disease, splenic infarction, perforated viscus, testicular torsion, this is not meant to be an all-inclusive list EKG interpreted by me (3pts min.). @ -As above X-rays interpreted by me (1pt min.). @ -None done CT interpreted by me (1pt min.). @ -None done U/S interpreted by me (1pt. min.). @ -None done What testing was considered but not performed or refused? (CT, X-rays, U/S, labs)? Why? @ -None What meds were considered but not given or refused? Why? @ -None Did you discuss the management of the patient with other professionals (professionals i.e. , PA, EVENT PLANNER, lab, RT, psych nurse, oncology social worker, pad assembler, teacher, legal officer, case filler)? Give summary @ -No Was smoking cessation discussed for >3mins.? @ -No Was critical care preformed (if so, how long)? @ -No Were there social determinants of health that impacted care today? How? (Homelessness, low income, unemployed, alcoholism, drug addiction, transportation, low edu. Level, literacy, decrease access to med. care, usp, rehab)? @ -No Was there de-escalation of care discussed even if they declined (Discuss DNR or withdrawal of care, Hospice)? DNR status @ -No What co-morbidities impacted this encounter? (DM, HTN, Smoking, COPD, CAD, Cancer, CVA, ARF, Chemo, Hep., AIDS, mental health diagnosis, sleep apnea, morbid obesity)? @ -Alcohol use disorder Was patient admitted / discharged? Hospital course, mention meds given and route, prescriptions, significant lab abnormalities, going to OR and other pertinent info. @ -Patient presenting for right-sided pain. Clinical presentation consistent with muscle strain. Liver enzymes are elevated but improving compared to previous visit. Serum alcohol is 462. Patient will be admitted to observation for alcohol intoxication Undiagnosed new problem with uncertain prognosis? @ -No Drug Therapy requiring intensive monitoring for toxicity (Heparin, Nitro, Insulin, Cardizem)? @ -No Were any procedures done? @ -No Diagnosis/symptom? @ Alcohol intoxication, muscle strain Acute, or Chronic, or Acute on Chronic? @ -Acute Uncomplicated (without systemic symptoms) or Complicated (systemic symptoms)? @ -Uncomplicated Side effects of treatment? @ -No Exacerbation, Progression, or Severe Exacerbation? @ -No Poses a threat to life or bodily function? How? (Chest pain, USA, GA, pneumonia, PE, COPD, DKA, ARF, appy, cholecystitis, CVA, Diverticulitis, Homicidal, Suicidal, threat to staff... and all critical care pts) @ -No Dr. Jacobo is my attendingg - Lab Data Result diagrams: 03/15/23 02:29 03/15/23 02:29 Lab Results 03/15/23 03/15/23 03/15/23 Range/Units 02:29 02:29 03:03 WBC 9.0 (3.8-10.6) k/uL RBC 5.24 (4.30-5.90) m/uL Hgb 18.8 H (13.0-17.5) gm/dL Hct 55.3 H (39.0-53.0) % MCV 105.6 H (80.0-100.0) fL MCH 35.9 H (25.0-35.0) pg MCHC 34.0 (31.0-37.0) g/dL RDW 16.4 H (11.5-15.5) % Plt Count 361 (150-450) k/uL MPV 8.1 Neutrophils % 66 % Lymphocytes % 22 % Monocytes % 10 % Eosinophils % 1 % Basophils % 1 % Neutrophils # 5.9 (1.3-7.7) k/uL Lymphocytes # 2.0 (1.0-4.8) k/uL Monocytes # 0.9 (0-1.0) k/uL Eosinophils # 0.0 (0-0.7) k/uL Basophils # 0.1 (0-0.2) k/uL Anisocytosis Slight Macrocytosis Moderate Sodium 147 H (137-145) mmol/L Potassium 4.8 (3.5-5.1) mmol/L Chloride 106 (98-107) mmol/L Carbon Dioxide 23 (22-30) mmol/L Anion Gap 18 mmol/L BUN 9 (9-20) mg/dL Creatinine 0.95 (0.66-1.25) mg/dL Est GFR (CKD-EPI)AfAm >90 (>60 ml/min/1.73 sqM) Est GFR (CKD-EPI)NonAf >90 (>60 ml/min/1.73 sqM) Glucose 89 (74-99) mg/dL Calcium 10.0 (8.4-10.2) mg/dL Total Bilirubin 1.9 H (0.2-1.3) mg/dL AST 132 H (17-59) U/L ALT 53 H (4-49) U/L Alkaline Phosphatase 103 (38-126) U/L Total Protein 9.8 H (6.3-8.2) g/dL Albumin 5.4 H (3.5-5.0) g/dL Lipase 99 (23-300) U/L Urine Color Yellow Urine Appearance Cloudy (Clear) Urine pH 6.0 (5.0-8.0) Ur Specific [place] 1.028 (1.001-1.035) Urine Protein 3+ H (Negative) Urine Glucose (UA) Negative (Negative) Urine Ketones Trace H (Negative) Urine Blood Moderate H (Negative) Urine Nitrite Negative (Negative) Urine Bilirubin Negative (Negative) Urine Urobilinogen 2.0 (<2.0) mg/dL Ur Leukocyte Esterase Negative (Negative) Urine RBC 24 H (0-5) /hpf Urine WBC 4 (0-5) /hpf Ur Squamous Epith Cells 1 (0-4) /hpf Amorphous Sediment Rare H (None) /hpf Urine Bacteria Rare H (None) /hpf Hyaline Casts 184 H (0-2) /lpf Urine Mucus Few H (None) /hpf Urine Yeast (Budding) Rare H (None) /hpf Serum Alcohol 462 H* mg/dL Disposition Clinical Impression: Alcohol intoxication, Muscle strain Disposition: ADMITTED IP TO THIS [facility] Condition: Good Referrals: None,Stated [Primary Care Provider] - 1-2 days
[2023-03-15] MEDS ORDERED: KETOROLAC 15 MG/ML 1 ML VIAL IVP PRN (04:17)
[2023-03-15] MEDS ORDERED: ONDANSETRON 4 MG/2 ML VIAL IVP PRN (04:17)
[2023-03-15] MEDS ORDERED: NALOXONE 0.4 MG/ML 1 ML VIAL IV PRN (04:17)
[2023-03-15] MEDS ORDERED: SODIUM CHLORIDE 0.9% 1,000 ML IV SCH (04:30)
[2023-03-15 07:48] VITALS: RESP 18
--- NOTE | 2023-03-15 11:13 | P.HPIM ---
History of Present Illness H&P Date: 03/15/23 Patient is a 37-year-old male with history of alcohol dependence presenting with right upper quadrant pain. He claims that he normally drinks a fifth of vodka per day. Over the last couple of days, he has been moving a lot of furniture, has not been drinking much water. Yesterday he developed right upper quadrant pain, and decided to bring himself to the hospital. He denies any nausea, vomiting, urinary or bowel complaints. He has had this episode once in the past. He denies any chronic liver disease. He smokes one pack per day, and occasionally smokes marijuana. Denies taking any other illicit drugs. He denies any fevers, chills, chest pain, or shortness of breath. In the ED, temperature was 98, pulse 116, respiratory rate 20, blood pressure 128/89, saturating at 96% on room air. WBC 9, hemoglobin 18.8, platelet 361, sodium 147, creatinine 0.95, total bilirubin 1.9, AST 132, ALT 53, ALP 103, lipase 99, serum alcohol level 462. Patient admitted for acute alcohol intoxication as well as further workup for right upper quadrant pain. He was given a liter of normal saline in the ED. Pertinent positives and negatives as discussed in HPI, a complete review of systems was performed and all other systems are negative. Patient seen and examined at bedside. Vital signs reviewed General: nontoxic, no distress, appears at stated age Derm: warm, dry Head: atraumatic, normocephalic, symmetric Eyes: EOMI, no lid lag, anicteric sclera, pupils equal round reactive to light ENT: Nose and ears atraumatic Neck: No thyromegaly, supple Mouth: no lip lesion, mucus membranes moist Cardiovascular: S1S2 reg, no murmur, no edema Lungs: clear to auscultation bilateral, no rhonchi, no rales, no wheeze, no accessory muscle use Abdominal: soft, mildly tender to palpation in all quadrants, no guarding, no appreciable organomegaly Ext: no gross muscle atrophy, muscle strength muscle strength 5 out of 5 in all 4 extremities, no contractures Neuro: CN II-XII grossly intact Psych: Alert, oriented, appropriate affect Assessment/Plan: Active: Acute alcohol intoxication Alcohol dependence, impending alcohol withdrawal Transaminitis Erythrocytosis Mild hypernatremia -Monitor for alcohol withdrawal -On Ativan when necessary IV and PO, per CIWA scores -Continue oral thiamine -Right upper quadrant ultrasound ordered -PT/INR ordered to calculate need for steroids for possible alcoholic hepatitis -Erythrocytosis and hypernatremia likely in the setting of dehydration, continue normal saline at 75 mL an hour The patient is admitted with an anticipated less than 2 midnight stay as observation status for evaluation of acute alcohol intoxication. Surrogate decision-maker: significant other CODE STATUS: Full code DVT prophylaxis: Lovenox Anticipated discharge date: 1-[address]: Home A total of 55 minutes was spent on the care of this complex patient more than 50% of the time was spent in counseling and care coordination. Past Medical History Past Medical History: No Reported History History of Any Multi-Drug Resistant Organisms: None Reported Past Surgical History: Ear Surgery Additional Past Surgical History / Comment(s): jaw surgery, tube surgery, dog attack and repair on top of head. Past Anesthesia/Blood Transfusion Reactions: No Reported Reaction Past Psychological History: Depression Smoking Status: Current every day smoker Past Alcohol Use History: Abuse, Daily, Heavy Past Drug Use History: Marijuana - Past Family History Mother History Unknown: Yes Father History Unknown: Yes Medications and Allergies Home Medications Medication Instructions Recorded Confirmed Type No Known Home Medications 03/15/23 03/15/23 History Allergies Allergy/AdvReac Type Severity Reaction Status Date / Time Penicillins Allergy Swelling Verified 03/15/23 01:46 Physical Exam Vitals: Vital Signs Temp Pulse Pulse Resp BP BP Pulse Ox 03/15/23 07:00 98 F 90 18 117/72 95 03/15/23 01:45 98 F 116 H 20 128/89 96 Intake and Output 03/14/23 03/15/23 03/15/23 22:59 06:59 14:59 Other: Voiding Method Toilet # Voids 0 Weight 68.039 kg Results CBC & Chem 7: 03/15/23 02:29 03/15/23 02:29 Labs: Abnormal Lab Results - Last 24 Hours (Table) 03/15/23 03/15/23 03/15/23 Range/Units 02:29 02:29 03:03 Hgb 18.8 H (13.0-17.5) gm/dL Hct 55.3 H (39.0-53.0) % MCV 105.6 H (80.0-100.0) fL MCH 35.9 H (25.0-35.0) pg RDW 16.4 H (11.5-15.5) % Sodium 147 H (137-145) mmol/L Total Bilirubin 1.9 H (0.2-1.3) mg/dL AST 132 H (17-59) U/L ALT 53 H (4-49) U/L Total Protein 9.8 H (6.3-8.2) g/dL Albumin 5.4 H (3.5-5.0) g/dL Urine Protein 3+ H (Negative) Urine Ketones Trace H (Negative) Urine Blood Moderate H (Negative) Urine RBC 24 H (0-5) /hpf Amorphous Sediment Rare H (None) /hpf Urine Bacteria Rare H (None) /hpf Hyaline Casts 184 H (0-2) /lpf Urine Mucus Few H (None) /hpf Urine Yeast (Budding) Rare H (None) /hpf Serum Alcohol 462 H* mg/dL
[2023-03-15 14:20] VITALS: BP 110/71; PULSE 82; TEMP 98.4
--- NOTE | 2023-03-15 18:00 | US ---
EXAMINATION TYPE: US abdomen limited DATE OF EXAM: 03/15/2023 COMPARISON: CT 2021, US 2019 CLINICAL INDICATION: Male, 37 years old with history of RUQ pain; Abdomen pain TECHNIQUE: Multiple sonographic images of the right upper quadrant are obtained. FINDINGS: Certified Legal Secretary Specialist notes: Exam done portable EXAM MEASUREMENTS: Liver Length: 18.8 cm Gallbladder Wall: 0.2 cm CBD: 0.4 cm Right Kidney: 10.1 x 5.7 x 4.5 cm Pancreas: Only a small portion of the pancreatic head is seen. Remainder is obscured by bowel gas sh adowing. Liver: Mildly enlarged but with normal homogeneous appearance. No focal lesion. Gallbladder: wnl Evidence for sonographic Mario's sign: no CBD: wnl Right Kidney: wnl IMPRESSION: 1. Mild hepatomegaly at 18.8 cm but with otherwise normal ultrasound appearance. 2. No gallstones or biliary ductal dilatation. 3. Suboptimal visualization of the pancreas.
--- NOTE | 2023-03-16 07:29 | P.DS ---
Providers Date of admission: 03/15/23 04:17 Expected date of discharge: 03/15/23 Attending physician: Awa Hernandez MD Primary care physician: Stated None Hospital Course: Patient left AMA. Patient Condition at Discharge: Undetermined Plan - Discharge Summary New Discharge Prescriptions: No Action No Known Home Medications Discharge Medication List No Known Home Medications 03/15/23 [History] Follow up Appointment(s)/Referral(s): None,Stated [Primary Care Provider] - 1-2 days Discharge/Stand Alone Forms: AA Meetings [facility], Outpatient Counseling, In Substance Abuse Facilities Discharge Disposition: LEFT AGAINST MEDICAL ADVICE
[2023-03-16] MEDS ORDERED: ENOXAPARIN 40 MG/0.4 ML SYRINGE SQ SCH (09:00)
[2023-03-16] MEDS ORDERED: THIAMINE 100 MG TAB PO SCH (09:00)
== END 2023-03-15 16:13 | disposition left against medical advice (07) ==
LOC: EC 01:36 → 6NMEDSUR 04:17
PROVIDERS: ADMIT Internal Medicine; ATTEND Internal Medicine
DX: F10.229 Alcohol dependence with intoxication, unspecified (principal); D75.1 Secondary polycythemia; E87.0 Hyperosmolality and hypernatremia; Z53.29 Procedure and treatment not carried out because of patient's decision for other reasons; S39.011A Strain of muscle, fascia and tendon of abdomen, initial encounter; Y90.8 Blood alcohol level of 240 mg/100 ml or more; F17.210 Nicotine dependence, cigarettes, uncomplicated; F32.A Depression, unspecified; X50.0XXA Overexertion from strenuous movement or load, initial encounter; Z79.899 Other long term (current) drug therapy; Z88.0 Allergy status to penicillin; Z87.828 Personal history of other (healed) physical injury and trauma; Z98.890 Other specified postprocedural states
CPT/HCPCS: 96361; 96372; 96374; 99285; 36415; 80053; 83690; 85025; 81001; 76705; G0378; G0480; J3411; J1885; 80320

== ENCOUNTER 2023-03-15 18:02 | Emergency (ER) | payer OTHER ==
[2023-03-15 18:15] VITALS: TEMP 97.8
--- NOTE | 2023-03-15 19:13 | ED ---
General Adult HPI - General Chief complaint: Psychiatric Symptoms Stated complaint: mental health Time Seen by Provider: 03/15/23 18:44 Source: patient, RN notes reviewed Mode of arrival: ambulatory Limitations: no limitations - History of Present Illness Initial comments: Patient is a pleasant 37-year-old male presenting to the emergency department with concerns for depression. Patient has a problem drinking alcohol. Patient states he normally drinks around 1/5 of alcohol daily. Patient does admit to having a beer prior to arrival. Patient also admits to recently being hospitalized for this. Patient is worried he will drink too much and Ancef drinking. Patient does not have desire to harm himself. - Related Data Home Medications Medication Instructions Recorded Confirmed No Known Home Medications 03/15/23 03/15/23 Allergies Allergy/AdvReac Type Severity Reaction Status Date / Time Penicillins Allergy Swelling Verified 03/15/23 18:15 Review of Systems ROS Statement: Those systems with pertinent positive or pertinent negative responses have been documented in the HPI. ROS Other: All systems not noted in ROS Statement are negative. Constitutional: Denies: fever Eyes: Denies: eye pain ENT: Denies: ear pain Respiratory: Denies: cough Cardiovascular: Denies: palpitations Gastrointestinal: Denies: abdominal pain Psychiatric: Reports: as per HPI. Denies: homicidal thoughts, suicidal thoughts Past Medical History Past Medical History: No Reported History History of Any Multi-Drug Resistant Organisms: None Reported Past Surgical History: Ear Surgery Additional Past Surgical History / Comment(s): jaw surgery, tube surgery, dog attack and repair on top of head. Past Anesthesia/Blood Transfusion Reactions: No Reported Reaction Past Psychological History: Depression Smoking Status: Current every day smoker Past Alcohol Use History: Abuse, Daily, Heavy Past Drug Use History: Marijuana - Past Family History Mother History Unknown: Yes Father History Unknown: Yes General Exam Limitations: no limitations General appearance: alert, in no apparent distress Head exam: Present: atraumatic Eye exam: Present: normal appearance Neck exam: Present: normal inspection Respiratory exam: Present: normal lung sounds bilaterally Cardiovascular Exam: Present: regular rate, normal rhythm GI/Abdominal exam: Present: soft. Absent: tenderness Extremities exam: Present: normal inspection Neurological exam: Present: alert Psychiatric exam: Present: normal affect, normal mood Skin exam: Present: normal color Course Vital Signs 03/15/23 18:10 Temperature 97.8 F Pulse Rate 107 H Respiratory 20 Rate Blood Pressure 144/94 O2 Sat by Pulse 96 Oximetry Medical Decision Making - Medical Decision Making Was pt. sent in by a medical professional or institution (, REESE, IS ANALYST, urgent care, hospital, or assisted...) When possible be specific @ -No Did you speak to anyone other than the patient for history (EMS, parent, family, police, friend...)? What history was obtained from this source @ -No Did you review nursing and triage notes (agree or disagree)? Why? @ -I reviewed and agree with nursing and triage notes Were old charts reviewed (outside hosp., previous admission, EMS record, old EKG, old radiological studies, urgent care reports/EKG's, assisted records)? Report findings @ -No old charts were reviewed Differential Diagnosis (chest pain, altered mental status, abdominal pain women, abdominal pain men, vaginal bleeding, weakness, fever, dyspnea, syncope, headache, dizziness, GI bleed, back pain, seizure, CVA, palpatations, mental health, musculoskeletal)? @ -Differential Mental Health Depression, anxiety, bipolar, psychosis, schizophrenia, borderline personality, situational depression, adjustment disorder, behavioral disorder, brain tumor, malingering, substance abuse, encephalopathy, medication reaction, dementia, hypothyroidism, degenerative neurologic disorder, lupus.... This is not meant to be all-inclusive list EKG interpreted by me (3pts min.). @ -As above X-rays interpreted by me (1pt min.). @ -None done CT interpreted by me (1pt min.). @ -None done U/S interpreted by me (1pt. min.). @ -None done What testing was considered but not performed or refused? (CT, X-rays, U/S, labs)? Why? @ -None What meds were considered but not given or refused? Why? @ -None Did you discuss the management of the patient with other professionals (professionals i.e. REESE Young, IS ANALYST, lab, RT, psych nurse, social media content manager, budget director, teacher, technology officer, case packer and sealer)? Give summary @ -No Was smoking cessation discussed for >3mins.? @ -No Was critical care preformed (if so, how long)? @ -No Were there social determinants of health that impacted care today? How? (Homelessness, low income, unemployed, alcoholism, drug addiction, transportation, low edu. Level, literacy, decrease access to med. care, longterm, rehab)? @ -No Was there de-escalation of care discussed even if they declined (Discuss DNR or withdrawal of care, Hospice)? DNR status @ -No What co-morbidities impacted this encounter? (DM, HTN, Smoking, COPD, CAD, Cancer, CVA, ARF, Chemo, Hep., AIDS, mental health diagnosis, sleep apnea, morbid obesity)? @ -None Was patient admitted / discharged? Hospital course, mention meds given and route, prescriptions, significant lab abnormalities, going to OR and other pertinent info. @ -Patient reevaluated and resting comfortably in bed. Patient states he is feeling better. Patient again confirms that he does not have suicidal thoughts and only is worried about the amount of drinking that he does. Patient is comfortable with discharge home and receptive to following up with rehab. Undiagnosed new problem with uncertain prognosis? @ -No Drug Therapy requiring intensive monitoring for toxicity (Heparin, Nitro, Insulin, Cardizem)? @ -No Were any procedures done? @ -No Diagnosis/symptom? @ -Alcohol abuse Acute, or Chronic, or Acute on Chronic? @ -Acute on chronic Uncomplicated (without systemic symptoms) or Complicated (systemic symptoms)? @ -default Side effects of treatment? @ -No Exacerbation, Progression, or Severe Exacerbation? @ -No Poses a threat to life or bodily function? How? (Chest pain, [place], CA, pneumonia, PE, COPD, DKA, ARF, appy, cholecystitis, CVA, Diverticulitis, Homicidal, Suicidal, threat to staff... and all critical care pts) @ -No Disposition Clinical Impression: Alcohol abuse Disposition: HOME SELF-CARE Condition: Stable Instructions (If sedation given, give patient instructions): Abuse of Alcohol (ED) Additional Instructions: Please discontinue alcohol use. Please do follow-up with primary care physician in the next day or 2 for recheck. Consider rehab facility such as [facility]. Also consider AA. Return for thoughts of self-harm, worsening symptoms, thoughts of hurting others or other concerns. Is patient prescribed a controlled substance at d/c from ED?: No Referrals: None,Stated [Primary Care Provider] - 1-2 days Forms: AA Meetings [facility] Time of Disposition: 20:26
[2023-03-15] MEDS ORDERED: IBUPROFEN 400 MG TAB PO STA (19:53)
[2023-03-15 20:35] VITALS: BP 122/70; PULSE 91; RESP 18
== END 2023-03-15 20:45 | disposition home or self-care (01) ==
LOC: EC 18:02
DX: F10.10 Alcohol abuse, uncomplicated (principal); F17.200 Nicotine dependence, unspecified, uncomplicated; F12.90 Cannabis use, unspecified, uncomplicated; Z86.59 Personal history of other mental and behavioral disorders; Z88.0 Allergy status to penicillin
CPT/HCPCS: 99284

== ENCOUNTER → 2023-06-03 | Outpatient (CLI) | payer OTHER ==
[2023-06-03 16:57] LABS: ALT 33 U/L (10-49); AST 26 U/L (14-35); Albumin 4.3 g/dL (3.8-4.9); Albumin/Globulin Ratio 1.54 Ratio (1.60-3.17); Alkaline Phosphatase 75 U/L (41-126); Bilirubin, Conjugated <0.20 mg/dL (0.20-0.40); Bilirubin,Unconjugated >0 mg/dL (0.20-1.00); Globulin 2.8 g/dL (1.6-3.3); Total Bilirubin 0.2 mg/dL (0.3-1.2); Total Protein 7.1 g/dL (6.2-8.2)
[2023-06-03 19:12] LABS: Hepatitis B Surface AB- Quant 3.5 mIU/mL; Hepatitis B Surface Antigen Conf_React
[2023-06-04 05:39] LABS: Hepatitis BE Antibody REACTIVE (Nonreactive); Hepatitis BE Antigen Nonreactive (Nonreactive)
[2023-06-06 15:49] LABS: Hepatitis B Virus DNA DETECTED (Not detected)
== END | disposition home or self-care (01) ==
LOC: LABWHC1 10:16
PROVIDERS: ATTEND Internal Medicine Infectious Disease
DX: J45.909 Unspecified asthma, uncomplicated (principal); J44.9 Chronic obstructive pulmonary disease, unspecified; B19.10 Unspecified viral hepatitis B without hepatic coma
CPT/HCPCS: 36415; 80076; 86704; 86706; 86707; 87340; 87350; 87517

== ENCOUNTER 2023-11-07 10:42 | Emergency (ER) | payer OTHER ==
[2023-11-07 11:35] VITALS: TEMP 97.8
[2023-11-07 13:07] LABS: Basophils % (A) 1 %; Eosinophils # (A) 0.1 k/uL (0-0.7); Eosinophils % (A) 2 %; HCT 46.3 % (39.0-53.0); HGB 15.4 gm/dL (13.0-17.5); Lymphocytes # (A) 1.5 k/uL (1.0-4.8); Lymphocytes % (A) 19 %; MCH 30.4 pg (25.0-35.0); MCHC 33.3 g/dL (31.0-37.0); MCV 91.3 fL (80.0-100.0); Mean Platelet Volume 8.1; Monocytes # (A) 0.4 k/uL (0-1.0); Monocytes % (A) 5 %; Neutrophils # (A) 5.8 k/uL (1.3-7.7); Neutrophils % (A) 73 %; Platelet Count 240 k/uL (150-450); RBC 5.08 m/uL (4.30-5.90); RDW 13.2 % (11.5-15.5)
[2023-11-07] MEDS: SODIUM CHLORIDE 0.9% 1,000 ML IV STA (13:08)
[2023-11-07] MEDS: ONDANSETRON 4 MG/2 ML VIAL IVP STA (13:08)
[2023-11-07 13:21] LABS: Appearance,Urine Clear (Clear); Bilirubin,Urine Negative (Negative); Blood,Urine Negative (Negative); Color,Urine Yellow; Glucose,Urine (UA) Negative (Negative); Ketones,Urine Negative (Negative); Leukocyte Esterase,Urine Negative (Negative); Nitrite,Urine Negative (Negative); Protein,Urine Negative (Negative); Specific Gravity,Urine 1.027 (1.001-1.035)
--- NOTE | 2023-11-07 13:36 | ED ---
General Adult HPI - General Chief complaint: Abdominal Pain Stated complaint: R sided flank pain Time Seen by Provider: 11/07/23 12:48 Source: patient, RN notes reviewed, old records reviewed Mode of arrival: ambulatory Limitations: no limitations - History of Present Illness Initial comments: Patient is a 38-year-old male who presents emergency department complaining of right lower quadrant abdominal pain. States it has been ongoing since Tuesday. endorses some diarrhea with it. Denies chest pain or shortness of breath. Denies any urinary complaints. Denies emesis but does endorse some nausea. Originally presented to urgent care a [facility] for further evaluation. Denies fevers or chills. Denies any known sick contacts. No history of abdominal surgeries. Pain has been isolated to the right lower quadrant. Presents for fu rther evaluation at this time. - Related Data Home Medications Medication Instructions Recorded Confirmed No Known Home Medications 03/15/23 11/07/23 Allergies Allergy/AdvReac Type Severity Reaction Status Date / Time Penicillins Allergy Swelling Verified 11/07/23 14:09 Review of Systems ROS Statement: Those systems with pertinent positive or pertinent negative responses have been documented in the HPI. Review of Systems: CONST: Denies fever EYES: Denies blurry vision ENT: Denies nasal congestion C/V: Denies Chest pain RESP: Denies shortness of breath GI: Endorses abdominal pain : Denies dysuria SKIN: Denies rash. MSK: Denies joint pain. NEURO: Denies headache ROS Other: All systems not noted in ROS Statement are negative. Past Medical History Past Medical History: No Reported History History of Any Multi-Drug Resistant Organisms: None Reported Past Surgical History: Ear Surgery Additional Past Surgical History / Comment(s): jaw surgery, tube surgery, dog attack and repair on top of head. Past Anesthesia/Blood Transfusion Reactions: No Reported Reaction Past Psychological History: Depression Smoking Status: Current every day smoker Past Alcohol Use History: Abuse, Daily, Heavy Past Drug Use History: Marijuana - Past Family History Mother History Unknown: Yes Father History Unknown: Yes General Exam - General Exam Comments Initial Comments: General: Appears in mild distress secondary to abdominal pain. HEAD: Normal with no signs of head trauma. EYES: PERRLA, EOMI, conjunctiva normal, no discharge. ENT: Hearing grossly intact, normal oropharynx. RESPIRATORY: Clear breath sounds bilaterally. No wheezes, rales, or rhonchi. C/V: Regular rate and rhythm. S1 and S2 auscultated, no edema, peripheral pulses 2+ and intact throughout ABD: Abdomen soft, nondistended. Tender to palpation in the right lower quadrant. No guarding or rebound tenderness. EXT: Normal range of motion, no obvious deformity SKIN: No rashes or lesions observed on exposed skin. NEURO: Alert and oriented x 4. Limitations: no limitations Course Vital Signs 11/07/23 10:54 Temperature 97.8 F Pulse Rate 71 Respiratory 16 Rate Blood Pressure 99/65 O2 Sat by Pulse 100 Oximetry Medical Decision Making - Medical Decision Making Was pt. sent in by a medical professional or institution (, PA, SENIOR BIOSTATISTICIAN/GROUP LEADER, urgent care, hospital, or detention...) When possible be specific @ -Sent from urgent care for evaluation for appendicitis. Did you speak to anyone other than the patient for history (EMS, parent, family, police, friend...)? What history was obtained from this source @ -No Did you review nursing and triage notes (agree or disagree)? Why? @ -I reviewed and agree with nursing and triage notes Were old charts reviewed (outside hosp., previous admission, EMS record, old EKG, old radiological studies, urgent care reports/EKG's, detention records)? Report findings @ -No old charts were reviewed Differential Diagnosis (chest pain, altered mental status, abdominal pain women, abdominal pain men, vaginal bleeding, weakness, fever, dyspnea, syncope, headache, dizziness, GI bleed, back pain, seizure, CVA, palpatations, mental health, musculoskeletal)? @ -Differential Abdominal Pain Men: Appendicitis, cholecystitis, diverticulosis, ischemic bowel, pancreatitis, hepatitis, UTI, gastroenteritis, AAA, incarcerated hernia, bowel obstruction, constipation, inflammatory bowel, hepatitis, peptic ulcer disease, splenic infarction, perforated viscus, testicular torsion, this is not meant to be an all-inclusive list EKG interpreted by me (3pts min.). @ -None done X-rays interpreted by me (1pt min.). @ -None done CT interpreted by me (1pt min.). @ -CT abdomen pelvis reveals no obvious acute intra-abdominal process. U/S interpreted by me (1pt. min.). @ -None done What testing was considered but not performed or refused? (CT, X-rays, U/S, labs)? Why? @ -None What meds were considered but not given or refused? Why? @ -None Did you discuss the management of the patient with other professionals (professionals i.e. , ALFONSO, SENIOR BIOSTATISTICIAN/GROUP LEADER, lab, RT, psych nurse, social services assistant, microbiology lab manager, teacher, morals squad police officer, caser)? Give summary @ -No Was smoking cessation discussed for >3mins.? @ -No Was critical care preformed (if so, how long)? @ -No Were there social determinants of health that impacted care today? How? (Homelessness, low income, unemployed, alcoholism, drug addiction, transportation, low edu. Level, literacy, decrease access to med. care, fdc, rehab)? @ -No Was there de-escalation of care discussed even if they declined (Discuss DNR or withdrawal of care, Hospice)? DNR status @ -No What co-morbidities impacted this encounter? (DM, HTN, Smoking, COPD, CAD, Cancer, CVA, ARF, Chemo, Hep., AIDS, mental health diagnosis, sleep apnea, morbid obesity)? @ -None Was patient admitted / discharged? Hospital course, mention meds given and route, prescriptions, significant lab abnormalities, going to OR and other pertinent info. @ -Based on the patient's presentation and physical exam, presents to the emergency department complaining of abdominal pain with nausea and diarrhea. Sent from urgent care for evaluation for appendicitis. We will symptomatically treat the patient with IV fluids, Zofran. He declines analgesia medications at this time. We also obtain CT abdomen pelvis to evaluate for appendicitis. Alfonso maldonado was in agreement this plan. Vital signs are within acceptable limits. Patient's laboratory studies remarkable for slightly elevated lipase of 506. Remainder the labs within acceptable limits. CT abdomen pelvis reveals no obvious acute intra-abdominal process. On reevaluation, patient is feeling improved. We did discuss his workup. He will be discharged home at this time. Patient was in agreement this plan. Vital signs are within acceptable limits. I will provide the patient with a prescription for ODT Zofran. I instructed the patient to follow up with their PCP in the next 1-3 days.. I explained that the patient should return to the emergency department if they experience any worsening symptoms. Strict return precautions were discussed with the patient. The patient expressed understanding of these instructions. I answered all questions that the patient had. The patient was discharged home in [good] condition with their prescriptions and follow up information. Undiagnosed new problem with uncertain prognosis? @ -No Drug Therapy requiring intensive monitoring for toxicity (Heparin, Nitro, Insulin, Cardizem)? @ -No Were any procedures done? @ -No Diagnosis/symptom? @ -Abdominal pain of unknown etiology, pancreatitis Acute, or Chronic, or Acute on Chronic? @ -Acute Uncomplicated (without systemic symptoms) or Complicated (systemic symptoms)? @ -Complicated Side effects of treatment? @ -None Exacerbation, Progression, or Severe Exacerbation] @ -No Poses a threat to life or bodily function? @ -Unlikely - Lab Data Result diagrams: 11/07/23 13:02 11/07/23 13:40 Lab Results 11/07/23 11/07/23 11/07/23 Range/Units 13:02 13:02 13:10 WBC 8.0 (3.8-10.6) k/uL RBC 5.08 (4.30-5.90) m/uL Hgb 15.4 (13.0-17.5) gm/dL Hct 46.3 (39.0-53.0) % MCV 91.3 (80.0-100.0) fL MCH 30.4 (25.0-35.0) pg MCHC 33.3 (31.0-37.0) g/dL RDW 13.2 (11.5-15.5) % Plt Count 240 (150-450) k/uL MPV 8.1 Neutrophils % 73 % Lymphocytes % 19 % Monocytes % 5 % Eosinophils % 2 % Basophils % 1 % Neutrophils # 5.8 (1.3-7.7) k/uL Lymphocytes # 1.5 (1.0-4.8) k/uL Monocytes # 0.4 (0-1.0) k/uL Eosinophils # 0.1 (0-0.7) k/uL Basophils # 0.0 (0-0.2) k/uL Sodium (137-145) mmol/L Potassium (3.5-5.1) mmol/L Chloride (98-107) mmol/L Carbon Dioxide (22-30) mmol/L Anion Gap mmol/L BUN (9-20) mg/dL Creatinine (0.66-1.25) mg/dL Est GFR (CKD-EPI)AfAm (>60 ml/min/1.73 sqM) Est GFR (CKD-EPI)NonAf (>60 ml/min/1.73 sqM) Glucose (74-99) mg/dL Plasma Lactic Acid [place] 1.0 (0.7-2.0) mmol/L Calcium (8.4-10.2) mg/dL Total Bilirubin (0.2-1.3) mg/dL AST (17-59) U/L ALT (4-49) U/L Alkaline Phosphatase (38-126) U/L Total Protein (6.3-8.2) g/dL Albumin (3.5-5.0) g/dL Lipase (23-300) U/L Urine Color Yellow Urine Appearance Clear (Clear) Urine pH 7.0 (5.0-8.0) Ur Specific [place] 1.027 (1.001-1.035) Urine Protein Negative (Negative) Urine Glucose (UA) Negative (Negative) Urine Ketones Negative (Negative) Urine Blood Negative (Negative) Urine Nitrite Negative (Negative) Urine Bilirubin Negative (Negative) Urine Urobilinogen 4.0 (<2.0) mg/dL Ur Leukocyte Esterase Negative (Negative) 11/07/23 Range/Units 13:40 WBC (3.8-10.6) k/uL RBC (4.30-5.90) m/uL Hgb (13.0-17.5) gm/dL Hct (39.0-53.0) % MCV (80.0-100.0) fL MCH (25.0-35.0) pg MCHC (31.0-37.0) g/dL RDW (11.5-15.5) % Plt Count (150-450) k/uL MPV Neutrophils % % Lymphocytes % % Monocytes % % Eosinophils % % Basophils % % Neutrophils # (1.3-7.7) k/uL Lymphocytes # (1.0-4.8) k/uL Monocytes # (0-1.0) k/uL Eosinophils # (0-0.7) k/uL Basophils # (0-0.2) k/uL Sodium 141 (137-145) mmol/L Potassium 4.9 (3.5-5.1) mmol/L Chloride 110 H (98-107) mmol/L Carbon Dioxide 24 (22-30) mmol/L Anion Gap 7 mmol/L BUN 9 (9-20) mg/dL Creatinine 0.68 (0.66-1.25) mg/dL Est GFR (CKD-EPI)AfAm >90 (>60 ml/min/1.73 sqM) Est GFR (CKD-EPI)NonAf >90 (>60 ml/min/1.73 sqM) Glucose 82 (74-99) mg/dL Plasma Lactic Acid [place] (0.7-2.0) mmol/L Calcium 9.6 (8.4-10.2) mg/dL Total Bilirubin 0.5 (0.2-1.3) mg/dL AST 26 (17-59) U/L ALT 30 (4-49) U/L Alkaline Phosphatase 95 (38-126) U/L Total Protein 7.1 (6.3-8.2) g/dL Albumin 4.3 (3.5-5.0) g/dL Lipase 506 H (23-300) U/L Urine Color Urine Appearance (Clear) Urine pH (5.0-8.0) Ur Specific [place] (1.001-1.035) Urine Protein (Negative) Urine Glucose (UA) (Negative) Urine Ketones (Negative) Urine Blood (Negative) Urine Nitrite (Negative) Urine Bilirubin (Negative) Urine Urobilinogen (<2.0) mg/dL Ur Leukocyte Esterase (Negative) Disposition Clinical Impression: Abdominal pain of unknown etiology, Pancreatitis Disposition: HOME SELF-CARE Condition: Good Instructions (If sedation given, give patient instructions): Pancreatitis (ED), Abdominal Pain (ED) Is patient prescribed a controlled substance at d/c from ED?: No Referrals: Sarika Joseph MD [Primary Care Provider] - 1-2 days Time of Disposition: 16:48
[2023-11-07 14:09] LABS: ALT 30 U/L (4-49); AST 26 U/L (17-59); African American GFR (CKD) >90 (>60 ml/min/1.73 sqM); Albumin 4.3 g/dL (3.5-5.0); Alkaline Phosphatase 95 U/L (38-126); Anion Gap 7 mmol/L; Blood Urea Nitrogen 9 mg/dL (9-20); Calcium 9.6 mg/dL (8.4-10.2); Carbon Dioxide 24 mmol/L (22-30); Chloride 110 mmol/L (98-107); Glucose 82 mg/dL (74-99); Lipase 506 U/L (23-300); Non-African American GFR(CKD) >90 (>60 ml/min/1.73 sqM); Potassium 4.9 mmol/L (3.5-5.1); Sodium 141 mmol/L (137-145); Total Bilirubin 0.5 mg/dL (0.2-1.3); Total Protein 7.1 g/dL (6.3-8.2)
--- NOTE | 2023-11-07 16:17 | CT ---
EXAMINATION TYPE: CT abdomen pelvis w con DATE OF EXAM: 11/07/2023 COMPARISON: 04/25/2022 INDICATION: RLQ pain DLP: 699 mGycm, Automated exposure control for dose reduction was used. CONTRAST: 100 mL of Isovue 300. Study performed without Oral Contrast TECHNIQUE: Axial images were obtained from above the diaphragm to the pubic rami in the axial plane a t 5 mm thick sections. Reconstructed images are reviewed on the computer in the coronal plane. FINDINGS: Limited CT sections are obtained the lung bases. The lung bases are clear. CT ABDOMEN: Liver: Normal Spleen: Normal Pancreas: Normal Adrenal glands: The adrenal glands are normal. Gallbladder: Normal Kidneys: No masses are evident. No hydronephrosis is present. No cysts are present. Delayed images were obtained through the kidneys, which remain unremarkable. Aorta: Vascular calcification is within the aorta. Inferior vena cava: Normal. CT PELVIS: Loops of bowel within the abdomen and pelvis are normal. There are loops of bowel which are incom pletely distended or lack oral contrast limiting their evaluation. Appendix: What appears to be the appendix is Normal as visualized. No suspicious dilated tubular stru cture or inflammatory changes are evident. Clinical management of any suspected appendicitis is recom mended. Urinary bladder: Normal. Genitourinary structures: Prostate is prominent Osseous structures: No suspicious lytic or sclerotic lesions. IMPRESSION: 1. No suspicious acute changes. 2. Clinical management for any suspected appendicitis.
[2023-11-07] MEDS ORDERED: ONDANSETRON 4 MG ODT STARTER PACK 2 TAB BTL PO STA (16:48)
[2023-11-07 17:19] VITALS: BP 115/68; PULSE 76; RESP 18
== END 2023-11-07 16:59 | disposition home or self-care (01) ==
LOC: EC 10:42
DX: K85.90 Acute pancreatitis without necrosis or infection, unspecified (principal); F17.200 Nicotine dependence, unspecified, uncomplicated; F12.90 Cannabis use, unspecified, uncomplicated; Z88.0 Allergy status to penicillin
CPT/HCPCS: 36415; 80053; 83605; 83690; 85025; 81003; 74177; 99284; 96374; 96361; J2405; Q9967

== ENCOUNTER → 2023-12-09 | Outpatient (CLI) | payer OTHER ==
[2023-12-09 21:02] LABS: Albumin 4.8 g/dL (3.8-4.9); Albumin/Globulin Ratio 1.92 Ratio (1.60-3.17); Bilirubin, Conjugated 0.22 mg/dL (0.20-0.40); Bilirubin,Unconjugated 0.28 mg/dL (0.20-1.00); Globulin 2.5 g/dL (1.6-3.3); Total Bilirubin 0.5 mg/dL (0.3-1.2); Total Protein 7.3 g/dL (6.2-8.2)
[2023-12-10 04:37] LABS: Hepatitis BE Antibody REACTIVE (Nonreactive); Hepatitis BE Antigen Nonreactive (Nonreactive)
[2023-12-12 11:13] LABS: Hepatitis B Virus DNA DETECTED (Not detected); Log HBV IU/mL 4.62 (<1.00)
== END | disposition home or self-care (01) ==
LOC: LABWHC1 11:59
PROVIDERS: ATTEND Internal Medicine Infectious Disease
DX: B19.10 Unspecified viral hepatitis B without hepatic coma (principal)
CPT/HCPCS: 36415; 80076; 86707; 87340; 87350; 87517

== ENCOUNTER 2024-03-12 16:02 | Emergency (ER) | payer OTHER ==
[2024-03-12] MEDS: DEXAMETHASONE SOD PHOSPHATE 10 MG/ML 1 ML VIAL IM STA (16:31)
--- NOTE | 2024-03-12 18:16 | ED ---
ENT HPI - General Chief complaint: ENT Stated complaint: poss object stuck in throat Time Seen by Provider: 03/12/24 16:11 Source: patient Mode of arrival: ambulatory Limitations: no limitations - History of Present Illness Initial comments: 38-year-old male presenting with chief complaint of sore throat. Patient states that for the last 2 days he has been vomiting, he has been detoxing from alcohol. Today he is feeling better in regards to his nausea and vomiting, however he is having significant throat pain. States that it feels like a sharp and stabbing pain in the throat. States that in the back of his mouth as well as in multiple areas of the throat feels like something may be stuck. States that he has not eaten much today because of his previous nausea. He is still able to drink fluids without difficulty. No difficulty breathing. No chest pain. No abdominal pain. No fevers or chills. For congestion. - Related Data Home Medications Medication Instructions Recorded Confirmed No Known Home Medications 03/15/23 11/07/23 Allergies Allergy/AdvReac Type Severity Reaction Status Date / Time Penicillins Allergy Swelling Verified 11/07/23 14:09 Review of Systems ROS Statement: Those systems with pertinent positive or pertinent negative responses have been documented in the HPI. ROS Other: All systems not noted in ROS Statement are negative. Past Medical History Past Medical History: Liver Disease Additional Past Medical History / Comment(s): pancreatitis. hepatitis B History of Any Multi-Drug Resistant Organisms: None Reported Past Surgical History: Ear Surgery Additional Past Surgical History / Comment(s): jaw surgery, tube surgery, dog attack and repair on top of head. Past Anesthesia/Blood Transfusion Reactions: No Reported Reaction Past Psychological History: Depression Smoking Status: Current every day smoker Past Alcohol Use History: Abuse, Daily, Heavy Past Drug Use History: Marijuana - Past Family History Mother History Unknown: Yes Father History Unknown: Yes General Exam Limitations: no limitations General appearance: alert, in no apparent distress Head exam: Present: atraumatic, normocephalic Eye exam: Present: normal appearance, EOMI ENT exam: Present: normal exam, normal oropharynx, mucous membranes moist Neck exam: Present: normal inspection. Absent: meningismus Respiratory exam: Present: normal lung sounds bilaterally. Absent: respiratory distress, wheezes, rales, rhonchi, stridor Cardiovascular Exam: Present: regular rate, normal rhythm, normal heart sounds. Absent: systolic murmur, diastolic murmur, rubs, gallop, clicks Neurological exam: Present: alert, oriented X3 Psychiatric exam: Present: normal affect, normal mood Skin exam: Present: warm, dry Course Vital Signs 03/12/24 03/12/24 16:06 18:24 Temperature 97.9 F 98.1 F Pulse Rate 120 H 99 Respiratory 20 18 Rate Blood Pressure 130/99 126/84 O2 Sat by Pulse 98 94 L Oximetry Medical Decision Making - Medical Decision Making Was pt. sent in by a medical professional or institution (, [facility], ASSOCIATE AUTOMATION ENGINEER, urgent care, hospital, or correction...) When possible be specific @ -No Did you speak to anyone other than the patient for history (EMS, parent, family, police, friend...)? What history was obtained from this source @ -No Did you review nursing and triage notes (agree or disagree)? Why? @ -I reviewed and agree with nursing and triage notes Were old charts reviewed (outside hosp., previous admission, EMS record, old EKG, old radiological studies, urgent care reports/EKG's, correction records)? Report findings @ -No old charts were reviewed Differential Diagnosis (chest pain, altered mental status, abdominal pain women, abdominal pain men, vaginal bleeding, weakness, fever, dyspnea, syncope, headache, dizziness, GI bleed, back pain, seizure, CVA, palpatations, mental health, musculoskeletal)? @ -Differential includes foreign body, strep pharyngitis, irritation due to vomiting, this is not an all-inclusive list EKG interpreted by me (3pts min.). @ -As above X-rays interpreted by me (1pt min.). @ -None done CT interpreted by me (1pt min.). @ -None done U/S interpreted by me (1pt. min.). @ -None done What testing was considered but not performed or refused? (CT, X-rays, U/S, labs)? Why? @ -None What meds were considered but not given or refused? Why? @ -None Did you discuss the management of the patient with other professionals (professionals i.e. , REESE, ASSOCIATE AUTOMATION ENGINEER, lab, RT, psych nurse, social work specialist, oil pumper, teacher, ict customer support officer, classification case manager)? Give summary @ -No Was smoking cessation discussed for >3mins.? @ -No Was critical care preformed (if so, how long)? @ -No Were there social determinants of health that impacted care today? How? (Homelessness, low income, unemployed, alcoholism, drug addiction, transportation, low edu. Level, literacy, decrease access to med. care, half-way, rehab)? @ -No Was there de-escalation of care discussed even if they declined (Discuss DNR or withdrawal of care, Hospice)? DNR status @ -No What co-morbidities impacted this encounter? (DM, HTN, Smoking, COPD, CAD, Cancer, CVA, ARF, Chemo, Hep., AIDS, mental health diagnosis, sleep apnea, morbid obesity)? @ -None Was patient admitted / discharged? Hospital course, mention meds given and route, prescriptions, significant lab abnormalities, going to OR and other pertinent info. @ -38-year-old male presenting with chief complaint of throat pain. Patient was vomiting for the last 2 days due to detoxing from alcohol, he states that his vomiting is stopped today getting out when he is experiencing pain. He feels as though there may be something in his throat but he is unsure what. He is still able to drink liquids without difficulty. On exam posterior pharynx is erythematous but otherwise no acute abnormality. Heart and lungs are clear to auscultation. He is negative for influenza, RSV, COVID, group A strep. He is given Decadron 10 mg IM. On reassessment he reports some improvement. He still having no difficulty breathing or swallowing. He is educated on today's findings and supportive management at home. discharged. Follow-up with PCP. Report back to ER with any new or worsening symptoms. Discussed return parameters and answered all questions. Patient conveyed verbal understanding and agreed to the plan. I discussed this case in detail with my attending Dr. Triplett Undiagnosed new problem with uncertain prognosis? @ -No Drug Therapy requiring intensive monitoring for toxicity (Heparin, Nitro, Insulin, Cardizem)? @ -No Were any procedures done? @ -No Diagnosis/symptom? @ -Throat pain Acute, or Chronic, or Acute on Chronic? @ -Acute Uncomplicated (without systemic symptoms) or Complicated (systemic symptoms)? @ -Uncomplicated Side effects of treatment? @ -No Exacerbation, Progression, or Severe Exacerbation? @ -No Poses a threat to life or bodily function? How? (Chest pain, [place], [place], pneumonia, PE, COPD, DKA, ARF, appy, cholecystitis, CVA, Diverticulitis, Homicidal, Suicidal, threat to staff... and all critical care pts) @ -Unlikely - Lab Data Lab Results 03/12/24 03/12/24 Range/Units 16:34 16:34 Influenza Type A (PCR) Not Detected (Not Detectd) Influenza Type B (PCR) Not Detected (Not Detectd) RSV (PCR) Not Detected (Not Detectd) SARS-CoV-2 (PCR) Not Detected (Not Detectd) Group A Strep (PCR) NOT DETECTED (Not Detectd) Disposition Clinical Impression: Throat irritation Disposition: HOME SELF-CARE Condition: Good Instructions (If sedation given, give patient instructions): Pharyngitis (ED) Additional Instructions: Follow-up with PCP. Report back to ER with any new or worsening symptoms. Take Motrin and Tylenol as needed. Is patient prescribed a controlled substance at d/c from ED?: No Referrals: Sarika Joseph MD [Primary Care Provider] - 1-2 days Time of Disposition: 18:16
[2024-03-12 18:25] VITALS: BP 126/84; PULSE 99; RESP 18; TEMP 98.1
== END 2024-03-12 18:25 | disposition home or self-care (01) ==
LOC: EC 16:02
DX: J02.9 Acute pharyngitis, unspecified (principal)
CPT/HCPCS: 87651; 87636; 99282; J1100

== ENCOUNTER 2024-06-28 17:19 | Observation (INO) | payer OTHER ==
[2024-06-28] MEDS: ONDANSETRON 4 MG/2 ML VIAL IVP STA (19:13)
[2024-06-28] MEDS: SODIUM CHLORIDE 0.9% 1,000 ML IV STA (19:14)
[2024-06-28] MEDS: LORazepam 2 MG/ML INJ IV STA (19:14)
[2024-06-28 19:15] LABS: Basophils # (A) 0.1 k/uL (0-0.2); Basophils % (A) 1 %; Eosinophils % (A) 0 %; HCT 48.9 % (39.0-53.0); HGB 16.5 gm/dL (13.0-17.5); Lymphocytes # (A) 0.7 k/uL (1.0-4.8); Lymphocytes % (A) 11 %; MCH 34.6 pg (25.0-35.0); MCHC 33.7 g/dL (31.0-37.0); MCV 102.6 fL (80.0-100.0); Macrocytosis Slight; Mean Platelet Volume 7.2; Monocytes # (A) 0.4 k/uL (0-1.0); Monocytes % (A) 5 %; Neutrophils # (A) 5.7 k/uL (1.3-7.7); Neutrophils % (A) 82 %; Platelet Count 192 k/uL (150-450); RBC 4.76 m/uL (4.30-5.90); RDW 12.7 % (11.5-15.5)
[2024-06-28 19:27] LABS: ALT 214 U/L (4-49); AST 289 U/L (17-59); African American GFR (CKD) >90 (>60 ml/min/1.73 sqM); Alcohol <10 mg/dL; Alkaline Phosphatase 167 U/L (38-126); Anion Gap 4 mmol/L; Blood Urea Nitrogen 7 mg/dL (9-20); Calcium 10.1 mg/dL (8.4-10.2); Carbon Dioxide 27 mmol/L (22-30); Chloride 107 mmol/L (98-107); Glucose 103 mg/dL (74-99); Lipase 193 U/L (23-300); Magnesium 1.4 mg/dL (1.6-2.3); Non-African American GFR(CKD) >90 (>60 ml/min/1.73 sqM); Potassium 4.1 mmol/L (3.5-5.1); Sodium 138 mmol/L (137-145); Total Bilirubin 1.9 mg/dL (0.2-1.3); Total Protein 8.7 g/dL (6.3-8.2)
--- NOTE | 2024-06-28 22:23 | ED ---
Alcohol HPI - General Chief Complaint: Alcohol Stated Complaint: Detox/Alcohol Time Seen by Provider: 06/28/24 18:10 Source: patient Mode of arrival: ambulatory Limitations: no limitations - History of Present Illness Initial Comments: 38-year-old male with history of hep B, alcohol abuse who presents emergency department with alcohol withdrawal symptoms. He states that he drinks a 5th a day. The last he drank was last night. He is now very tremulous with a headache and nausea. He has been to rehab before. States that he wants to quit drinking alcohol. He denies any other substance abuse. No history of withdrawal seizures. Patient has hep B and is being monitored for this but denies any active treatment. Patient has had nausea with dry heaving. No hematemesis. No other alleviating, precipitating or modifying factors - Related Data Home Medications Medication Instructions Recorded Confirmed No Known Home Medications 03/15/23 06/29/24 Allergies Allergy/AdvReac Type Severity Reaction Status Date / Time Penicillins Allergy Anaphylaxis Verified 06/29/24 08:40 Review of Systems ROS Statement: Those systems with pertinent positive or pertinent negative responses have been documented in the HPI. ROS Other: All systems not noted in ROS Statement are negative. Past Medical History Past Medical History: Liver Disease Additional Past Medical History / Comment(s): pancreatitis. hepatitis B History of Any Multi-Drug Resistant Organisms: None Reported Past Surgical History: Ear Surgery Additional Past Surgical History / Comment(s): jaw surgery, tube surgery, dog attack and repair on top of head. Past Anesthesia/Blood Transfusion Reactions: No Reported Reaction Past Psychological History: Depression Smoking Status: Current every day smoker Past Alcohol Use History: Abuse, Daily, Heavy Past Drug Use History: Marijuana - Past Family History Mother History Unknown: Yes Father History Unknown: Yes General Exam Limitations: no limitations General appearance: alert, in no apparent distress Head exam: Present: atraumatic, normocephalic, normal inspection Eye exam: Present: normal appearance, PERRL, EOMI. Absent: scleral icterus, conjunctival injection, periorbital swelling ENT exam: Present: normal exam, mucous membranes moist Neck exam: Present: normal inspection. Absent: tenderness, meningismus, lymphadenopathy Respiratory exam: Present: normal lung sounds bilaterally. Absent: respiratory distress, wheezes, rales, rhonchi, stridor Cardiovascular Exam: Present: regular rate, normal rhythm, normal heart sounds. Absent: systolic murmur, diastolic murmur, rubs, gallop, clicks GI/Abdominal exam: Present: soft, normal bowel sounds. Absent: distended, tenderness, guarding, rebound, rigid Extremities exam: Present: normal inspection, full ROM, normal capillary refill. Absent: tenderness, pedal edema, joint swelling, calf tenderness Back exam: Present: normal inspection Neurological exam: Present: alert, oriented X3, CN II-XII intact Psychiatric exam: Present: normal affect, normal mood Skin exam: Present: warm, dry, intact, normal color. Absent: rash Course Vital Signs 06/28/24 06/28/24 06/28/24 17:26 23:10 23:27 Temperature 98.1 F 98.1 F Pulse Rate 87 Pulse Rate [ Pulse Oximetery ] Pulse Rate [ 73 Right Supine Pulse Oximetery ] Respiratory 20 20 20 Rate Blood Pressure 160/92 Blood Pressure 122/75 [Left Arm Supine] O2 Sat by Pulse 97 98 Oximetry 06/29/24 06/29/24 02:00 08:00 Temperature 98.2 F 97.6 F Pulse Rate Pulse Rate [ 74 Pulse Oximetery ] Pulse Rate [ 65 Right Supine Pulse Oximetery ] Respiratory 16 17 Rate Blood Pressure Blood Pressure 112/71 145/92 [Left Arm Supine] O2 Sat by Pulse 99 99 Oximetry Medical Decision Making - Medical Decision Making Was pt. sent in by a medical professional or institution ([facility] Young, SPIRITUAL MINISTER, urgent care, hospital, or [place] health care facility...) When possible be specific @ -No Did you speak to anyone other than the patient for history (EMS, parent, family, police, friend...)? What history was obtained from this source @ -No Did you review nursing and triage notes (agree or disagree)? Why? @ -I reviewed and agree with nursing and triage notes Were old charts reviewed (outside hosp., previous admission, EMS record, old EKG, old radiological studies, urgent care reports/EKG's, [place] health care facility records)? Report findings @ -No old charts were reviewed Differential Diagnosis (chest pain, altered mental status, abdominal pain women, abdominal pain men, vaginal bleeding, weakness, fever, dyspnea, syncope, headache, dizziness, GI bleed, back pain, seizure, CVA, palpatations, mental health, musculoskeletal)? @ -Alcohol intoxication, alcohol withdrawal, polysubstance abuse EKG interpreted by me (3pts min.). @ -Not done X-rays interpreted by me (1pt min.). @ -None done CT interpreted by me (1pt min.). @ -None done U/S interpreted by me (1pt. min.). @ -None done What testing was considered but not performed or refused? (CT, X-rays, U/S, labs)? Why? @ -None What meds were considered but not given or refused? Why? @ -None Did you discuss the management of the patient with other professionals (professionals i.e. , PA, SPIRITUAL MINISTER, lab, RT, psych nurse, oncology social work, lawyer probate, teacher, marketing and communications officer, rifle case repairer)? Give summary @ -Spoke with [facility] for admission Was smoking cessation discussed for >3mins.? @ -No Was critical care preformed (if so, how long)? @ -No Were there social determinants of health that impacted care today? How? (Homele ssness, low income, unemployed, alcoholism, drug addiction, transportation, low edu. Level, literacy, decrease access to med. care, correction, rehab)? @ -No Was there de-escalation of care discussed even if they declined (Discuss DNR or withdrawal of care, Hospice)? DNR status @ -No What co-morbidities impacted this encounter? (DM, HTN, Smoking, COPD, CAD, Cancer, CVA, ARF, Chemo, Hep., AIDS, mental health diagnosis, sleep apnea, morbid obesity)? @ -Alcohol abuse Was patient admitted / discharged? Hospital course, mention meds given and route, prescriptions, significant lab abnormalities, going to OR and other pertinent info. @ -Upon arrival patient seen and evaluated in bed 28. Thorough history and physical exam was performed. IV access was established. Patient was given Zofran and Ativan. CIWA scale was assessed. Patient does score 12. I did offer overnight observation for continued Ativan for which the patient was agreeable. [facility] Undiagnosed new problem with uncertain prognosis? @ -No Drug Therapy requiring intensive monitoring for toxicity (Heparin, Nitro, Insulin, Cardizem)? @ -No Were any procedures done? @ -No Diagnosis/symptom? @ -Acute alcohol withdrawal, history of alcohol abuse Acute, or Chronic, or Acute on Chronic? @ -Acute on chronic Uncomplicated (without systemic symptoms) or Complicated (systemic symptoms)? @ -Complicated Side effects of treatment? @ -No Exacerbation, Progression, or Severe Exacerbation? @ -No Poses a threat to life or bodily function? How? (Chest pain, [place], [place], pneumonia, PE, COPD, DKA, ARF, appy, cholecystitis, CVA, Diverticulitis, Homicidal, Suicidal, threat to staff... and all critical care pts) @ -No - Lab Data Result diagrams: 06/29/24 06:38 06/29/24 06:38 Lab Results 06/28/24 06/28/24 Range/Units 19:01 19:01 WBC 7.0 (3.8-10.6) k/uL RBC 4.76 (4.30-5.90) m/uL Hgb 16.5 (13.0-17.5) gm/dL Hct 48.9 (39.0-53.0) % MCV 102.6 H (80.0-100.0) fL MCH 34.6 (25.0-35.0) pg MCHC 33.7 (31.0-37.0) g/dL RDW 12.7 (11.5-15.5) % Plt Count 192 (150-450) k/uL MPV 7.2 Neutrophils % 82 % Lymphocytes % 11 % Monocytes % 5 % Eosinophils % 0 % Basophils % 1 % Neutrophils # 5.7 (1.3-7.7) k/uL Lymphocytes # 0.7 L (1.0-4.8) k/uL Monocytes # 0.4 (0-1.0) k/uL Eosinophils # 0.0 (0-0.7) k/uL Basophils # 0.1 (0-0.2) k/uL Macrocytosis Slight Sodium 138 (137-145) mmol/L Potassium 4.1 (3.5-5.1) mmol/L Chloride 107 (98-107) mmol/L Carbon Dioxide 27 (22-30) mmol/L Anion Gap 4 mmol/L BUN 7 L (9-20) mg/dL Creatinine 0.58 L (0.66-1.25) mg/dL Est GFR (CKD-EPI)AfAm >90 (>60 ml/min/1.73 sqM) Est GFR (CKD-EPI)NonAf >90 (>60 ml/min/1.73 sqM) Glucose 103 H (74-99) mg/dL Calcium 10.1 (8.4-10.2) mg/dL Magnesium 1.4 L (1.6-2.3) mg/dL Total Bilirubin 1.9 H (0.2-1.3) mg/dL AST 289 H (17-59) U/L ALT 214 H (4-49) U/L Alkaline Phosphatase 167 H (38-126) U/L Total Protein 8.7 H (6.3-8.2) g/dL Albumin 5.0 (3.5-5.0) g/dL Lipase 193 (23-300) U/L Serum Alcohol <10 mg/dL Disposition Clinical Impression: Alcohol withdrawal syndrome, Vomiting, Alcohol abuse Disposition: ADMITTED IP TO THIS [facility] Condition: Stable Is patient prescribed a controlled substance at d/c from ED?: No Time of Disposition: 22:24 Decision to Admit Reason: Admit from EC Decision Date: 06/28/24 Decision Time: 22:24
[2024-06-28] MEDS ORDERED: NALOXONE 0.4 MG/ML 1 ML VIAL IV PRN (22:24)
[2024-06-28] MEDS ORDERED: ONDANSETRON 4 MG/2 ML VIAL IVP PRN (22:24)
[2024-06-28] MEDS ORDERED: IBUPROFEN 400 MG TAB PO PRN (22:24)
[2024-06-28] MEDS: SODIUM CHLORIDE 0.9% 1,000 ML IV SCH (22:44)
[2024-06-29 07:30] LABS: Basophils % (A) 1 %; Eosinophils # (A) 0.1 k/uL (0-0.7); Eosinophils % (A) 1 %; HCT 44.1 % (39.0-53.0); HGB 14.8 gm/dL (13.0-17.5); Lymphocytes # (A) 1.4 k/uL (1.0-4.8); Lymphocytes % (A) 23 %; MCH 34.6 pg (25.0-35.0); MCHC 33.6 g/dL (31.0-37.0); Macrocytosis Slight; Mean Platelet Volume 8.3; Monocytes # (A) 0.4 k/uL (0-1.0); Monocytes % (A) 6 %; Neutrophils # (A) 4.1 k/uL (1.3-7.7); Neutrophils % (A) 68 %; Platelet Count 150 k/uL (150-450); RBC 4.28 m/uL (4.30-5.90); RDW 13.2 % (11.5-15.5)
[2024-06-29 07:32] LABS: African American GFR (CKD) >90 (>60 ml/min/1.73 sqM); Anion Gap 5 mmol/L; Blood Urea Nitrogen 7 mg/dL (9-20); Calcium 9.3 mg/dL (8.4-10.2); Carbon Dioxide 26 mmol/L (22-30); Chloride 105 mmol/L (98-107); Glucose 84 mg/dL (74-99); Non-African American GFR(CKD) >90 (>60 ml/min/1.73 sqM); Potassium 3.6 mmol/L (3.5-5.1); Sodium 136 mmol/L (137-145)
[2024-06-29 08:22] VITALS: RESP 17
[2024-06-29 08:31] LABS: Appearance,Urine Clear (Clear); Bilirubin,Urine Negative (Negative); Blood,Urine Negative (Negative); Color,Urine Yellow; Glucose,Urine (UA) Negative (Negative); Ketones,Urine Negative (Negative); Leukocyte Esterase,Urine Negative (Negative); Nitrite,Urine Negative (Negative); Protein,Urine Negative (Negative); Specific Gravity,Urine 1.021 (1.001-1.035)
[2024-06-29 09:09] LABS: Amphetamine Screen,Urine Not Detected (NotDetected); Barbiturate Screen,Urine Not Detected (NotDetected); Benzodiazepines Screen,Urine Detected (NotDetected); Cocaine Screen,Urine Not Detected (NotDetected); Methadone Screen, Urine Not Detected (NotDetected); Opiate Screen,Urine Not Detected (NotDetected); Oxycodone Screen, Urine Not Detected (NotDetected); Phencyclidine Screen,Urine Not Detected (NotDetected); Tricyclic Antidepressant,Urine Not Detected (NotDetected); Urn Cannabinoid Scrn Detected (NotDetected)
[2024-06-29] MEDS ORDERED: LORazepam 0.5 MG TAB PO PRN (14:09)
[2024-06-29] MEDS ORDERED: LORazepam 1 MG TAB PO PRN ×3 (14:09)
[2024-06-29 14:32] VITALS: BP 146/85; PULSE 63; TEMP 98.4
--- NOTE | 2024-06-30 03:49 | HP ---
HISTORY AND PHYSICAL CHIEF COMPLAINT: Alcohol withdrawal. HISTORY OF PRESENT ILLNESS: 38-year-old gentleman with a past medical history significant for alcohol abuse, was admitted with alcohol withdrawal symptoms. The patient had bad DTs previously. The patient was tremulous. There is no history of any fever, rigors. LFTs are elevated. PAST MEDICAL HISTORY: Reviewed, includes liver disease, pancreatitis, hepatitis B. Rest of the history chart is also reviewed. HOME MEDICATIONS: None. ALLERGIES: Penicillin. FAMILY HISTORY: No history of heart disease or strokes in the family. SOCIAL HISTORY: History of alcohol, THC, and smoking. REVIEW OF SYSTEMS: Fourteen-point review is negative except as mentioned earlier. PHYSICAL EXAMINATION: VITAL SIGNS: Pulse is 65, blood pressure 112/70, respirations 16. HEENT: Conjunctivae normal. ABDOMEN: Soft. LEGS: mild diffuse tremors present. LABORATORY DATA: Reviewed. ASSESSMENT: 1. Acute alcohol withdrawals and early delirium tremens. 2. Elevated liver function tests, alcoholic hepatitis. 3. History of pancreatitis. 4. History of hepatitis B. 5. History of depression. RECOMMENDATIONS: This 38-year-old gentleman presented with multiple complex medical issues. We will monitor the patient closely. CIWA protocol. Otherwise, I would recommend to continue to monitor. Repeat labs. Guarded prognosis. Further recommendations to follow. MMODL / IJN: [id number] / RICHARD
--- NOTE | 2024-07-04 17:37 | DS ---
DISCHARGE SUMMARY FINAL DIAGNOSES: 1. Acute alcohol withdrawal and early delirium tremens. 2. Elevated LFTs. DISCHARGE DISPOSITION: The patient left the hospital against medical advice. HISTORY OF PRESENT ILLNESS: This 38-year-old gentleman admitted with multiple medical issues and alcohol withdrawal. The patient, however, left the hospital against medical advice. Prognosis was extremely guarded. STEPHANIE / RONALN: [id number] /
== END 2024-06-29 18:38 | disposition left against medical advice (07) ==
LOC: EC 17:19 → 5NMEDONC 22:26
PROVIDERS: ADMIT Hospitalist; ATTEND Hospitalist
DX: F10.231 Alcohol dependence with withdrawal delirium (principal); K70.10 Alcoholic hepatitis without ascites; R79.89 Other specified abnormal findings of blood chemistry; F32.A Depression, unspecified; F17.200 Nicotine dependence, unspecified, uncomplicated; Y90.0 Blood alcohol level of less than 20 mg/100 ml; Z86.19 Personal history of other infectious and parasitic diseases; Z88.0 Allergy status to penicillin; Z53.29 Procedure and treatment not carried out because of patient's decision for other reasons
CPT/HCPCS: 96374; 96375; 99285; 36415; 80053; 80048; 83690; 83735; 85025 ×2; 81003; 80306; G0378 ×2; G0480; J2060; J2405; 80320

== ENCOUNTER → 2024-07-18 | Outpatient (CLI) | payer OTHER ==
[2024-07-18 20:01] LABS: Hepatitis B Surface AB- Quant 3.5 mIU/mL
[2024-07-18 20:24] LABS: ALT 109 U/L (10-49); AST 53 U/L (14-35); Albumin 4.8 g/dL (3.8-4.9); Albumin/Globulin Ratio 1.55 Ratio (1.60-3.17); Alkaline Phosphatase 91 U/L (41-126); BUN/Creat Ratio 12.89 Ratio (12.00-20.00); Blood Urea Nitrogen 11.6 mg/dL (9.0-27.0); Calcium 10.4 mg/dL (8.7-10.3); Carbon Dioxide 23.5 mmol/L (21.6-31.8); Chloride 100 mmol/L (96-109); Globulin 3.1 g/dL (1.6-3.3); Glucose 99 mg/dL (70-110); Potassium 4.7 mmol/L (3.5-5.5); Sodium 137 mmol/L (135-145); Total Bilirubin 0.4 mg/dL (0.3-1.2); Total Protein 7.9 g/dL (6.2-8.2)
[2024-07-18 21:48] LABS: Hepatitis B Surface Antigen Conf_React
[2024-07-19 06:34] LABS: Hepatitis BE Antibody REACTIVE (Nonreactive); Hepatitis BE Antigen Nonreactive (Nonreactive)
[2024-07-19 11:33] LABS: Hepatitis B Virus DNA DETECTED (Not detected); Log HBV IU/mL 5.72 (<1.00)
== END | disposition home or self-care (01) ==
LOC: LABWHC1 13:19
PROVIDERS: ATTEND Internal Medicine Infectious Disease
DX: B18.1 Chronic viral hepatitis B without delta-agent (principal)
CPT/HCPCS: 36415; 80053; 82105; 86706; 86707; 87340; 87350; 87517